=== PATIENT | male | born 1950 | race Caucasian/White ===

== ENCOUNTER 2016-06-17 17:58 | Inpatient (IN) | payer MEDICAID, OTHER ==
[~2016-06-17] VITALS: Ht 165.1 cm; Wt 69.9 kg
[2016-06-17] VITALS (11 sets, daily range): BP systolic 104–118; BP diastolic 18–71; PULSE 87–126; RESP 18–46; TEMP 96.8–98.1; O2SAT 96–99
[~2016-06-17 17:58] MED LIST: ALBMDI INH; CEPH-568 PO; LACT1CAP57 PO; MOME13HF2 INH
--- NOTE | 2016-06-17 17:58 | NUR ---
Pt arrived to ED at 1756 via SQ 61 in severe Resp distress RR 46 SaO2 97% on c-pap. EMS states hx asthma and per EMS he frequently utilized EMS services. Epi and Albuterol given in field.
--- NOTE | 2016-06-17 17:58 | NUR ---
See Code sheet starting at 3005 Dr. Finley at bedside. Pt placed in room 1
--- NOTE | 2016-06-17 18:00 | NUR ---
Megan freire in EDM - 06/17/[address] at [address] LIU AT BEDSIDE EXAMINING THE PT.
--- NOTE | 2016-06-17 18:00 | NUR ---
# 20 gauge angiocath placed to LH. Use of asceptic technique. Opsite placed over site. Blood return noted. Flushed with 10 cc of normal saline. No evidence of infiltration noted. Patient tolerated well.
--- NOTE | 2016-06-17 18:01 | NUR ---
Intubation completed 7.5 ET at 25cm lip line
--- NOTE | 2016-06-17 18:07 | NUR ---
Propofol 15mcg/kg/min verified by Lou RN
--- NOTE | 2016-06-17 18:07 | NUR ---
pt arrived with 18G LAC placed in field infiltrated during intubation, additional IV placed in RH 20G, LW 20G, RAC 20G placed with asceptic technique. Opsite placed over site. Blood return noted. Blood for lab drawn from site. Flushed with 10 cc of normal saline. No evidence of infiltration noted.
[2016-06-17] MEDS ORDERED: PROPOFOL DRIP 100 ML IV ONE (18:09)
--- NOTE | 2016-06-17 18:09 | NUR ---
Propofol increased to 20mg/kg/min verified by Rosanna pt moving all extremities and biting tube Addendum: 06/17/16 at 2053 by NAOMI Propofol increased to 20mcg/kg/min verified by Rosanna pt moving all extremities and biting tube
--- NOTE | 2016-06-17 18:10 | NUR ---
solumedrol 250mg IVP
[2016-06-17] MEDS ORDERED: ALBUTEROL SULFATE 0.083% 2.5 MG/3 ML VIAL.NEB INH ONE ×2 (18:12→18:15)
[2016-06-17] MEDS ORDERED: methylPREDNISolone SOD SUCC/PF 62.5 MG/ML VIAL ONE (18:13)
[2016-06-17] MEDS ORDERED: IPRATROPIUM BROM 0.5 MG/2.5 ML VIAL.NEB (ATROVENT) INH ONE (18:15)
[2016-06-17] MEDS ORDERED: methylPREDNISolone SOD SUCC/PF 62.5 MG/ML VIAL IVP ONE ×2 (18:15→19:30)
[2016-06-17] MEDS ORDERED: LEVOFLOXACIN 500 MG/D5W 100 ML IV ONE (18:15)
[2016-06-17] MEDS ORDERED: ALBUTEROL SULFATE 0.083% 2.5 MG/3 ML VIAL.NEB INH PRN (18:15)
--- NOTE | 2016-06-17 18:15 | NUR ---
Physician order given to place 4-point soft type restraints to bilat wrist and ankle to prevent patient from pulling out ET tube. Resraints placed with quick-release ties to bed frame. Will monitor patient frequently.
--- NOTE | 2016-06-17 18:17 | NUR ---
Propofol increased to 35mg/kg/min verified by Dayana pt moving all extremities and biting tube Addendum: 06/17/16 at 2057 by NAOMI Propofol increased to 35mcg/kg/min verified by Dayana pt moving all extremities and biting tube
--- NOTE | 2016-06-17 18:17 | NUR ---
Megan freire in ED - 06/17/16 at 1901 by VANNESSA Propofol increased to 20mg/kg/min verified by Dayana pt moving all extremities and biting tube
--- NOTE | 2016-06-17 18:22 | NUR ---
Propofol increased to 40mg/kg/min verified by Dayana pt moving all extremities and biting tube Addendum: 06/17/16 at 2058 by NAOMI Propofol increased to 40mcg/kg/min verified by Dayana pt moving all extremities and biting tube
--- NOTE | 2016-06-17 18:27 | NUR ---
Propofol increased to 45mg/kg/min verified by Dayana pt moving all extremities and biting tube. IV patent no swelling noted Addendum: 06/17/16 at 2101 by NAOMI Propofol increased to 45mcg/kg/min verified by Dayana pt moving all extremities and biting tube. IV patent no swelling noted
--- NOTE | 2016-06-17 18:30 | NUR ---
INTUBATION PERFORMED BY ER MD LIU AT 1801 VIA ET TUBE SIZE 7.5 SECURED WITH NICOLLE AT 25CM LIP LINE. CONNECTED TO VENTILATOR AT 1810 VIA SETTINGS OF AC 14 VT500 100%FIO2. SPUTUM SAMPLE COLLECTED AND SENT TO LAB AT 1820. PT CURRENTLY ON N TX. WAITING FOR NEW ORDERS.
[2016-06-17 18:32] LABS: BASOPHILS # (AUTO) 0.1 K/uL (0.0-0.2); BASOPHILS % (AUTO) 0.8 % (0.0-2.0); EOSINOPHILS # (AUTO) 0.5 K/uL (0.0-0.4); EOSINOPHILS % (AUTO) 3.3 % (0.0-4.0); HEMATOCRIT 41.6 % (36-54); HEMOGLOBIN 14.2 g/dL (14.0-18.0); LYMPHOCYTES # (AUTO) 2.1 K/uL (1.0-5.5); LYMPHOCYTES % (AUTO) 14.1 % (20.5-51.5); MEAN CORPUSCULAR HEMOGLOBIN 30 pg (27-31); MEAN CORPUSCULAR HGB CONC 34 % (32-36); MEAN CORPUSCULAR VOLUME 89 fL (79.0-98.0); MONOCYTES # (AUTO) 1.1 K/uL (0.0-1.0); NEUTROPHILS # (AUTO) 11.3 K/uL (1.8-7.7); NEUTROPHILS % (AUTO) 74.8 % (40.0-70.0); PLATELET COUNT (AUTO) 249 K/uL (130-430); RED BLOOD CELL COUNT(AUTO) 4.68 MIL/uL (4.2-6.2); RED CELL DISTRIBUTION WIDTH 12.1 % (9.0-15.0); WHITE BLOOD COUNT (AUTO) 15.1 K/uL (4.8-10.8)
--- NOTE | 2016-06-17 18:33 | NUR ---
Propofol increased to 50mg/kg/min verified by Dayana pt moving all extremities and biting tube no s/s of IV infiltrate Addendum: 06/17/16 at 2102 by NAOMI Propofol increased to 50mcg/kg/min verified by Dayana pt moving all extremities and biting tube no s/s of IV infiltrate
[2016-06-17 18:39] LABS: CALCIUM 8.5 mg/dL (8.4-11.0); CREATININE 1.45 mg/dL (0.55-1.30); INR 0.9 (0.80-1.20); POTASSIUM 4.3 mmol/L (3.5-5.1); PROTHROMBIN TIME 10.2 SECS (9.5-12.5)
--- NOTE | 2016-06-17 18:40 | NUR ---
Prior chart reviewed by Lou obtained phone number for poss family [phone] no answer
--- NOTE | 2016-06-17 18:40 | NUR ---
Call for a bed and ICU will call back
--- NOTE | 2016-06-17 18:43 | NUR ---
Pt biting tube, moving all extremities Propofol at 50mcg/kg/min. V.O.R.B Dr. Finley for Ativan 1mg IVP.
[2016-06-17] MEDS ORDERED: LORazepam 2 MG/ML VIAL (FOR ER USE) IVP ONE (18:45)
[2016-06-17] MEDS ORDERED: KCL 20 mEq in D5/0.45NS 1000mL 1,000 ML IV SCH (18:45)
--- NOTE | 2016-06-17 18:45 | NUR ---
# 16 FR Mclaughlin catheter with use of sterile technique. Immediate return of 40 cc CLEAR AND YELLOW urine noted. Bedside drainage bag placed below level of bladder. Urine sample collected and sent to lab. Pt tolerated procedure WELL. Patient unable to toilet self due to intubation.
[2016-06-17 18:47] LABS: BILIRUBIN,URINE NEGATIVE (NEGATIVE); BLOOD, URINE 2+ (NEGATIVE); CLARITY/URINE HAZY (CLEAR); COLOR,URINE YELLOW (YELLOW); GLUCOSE,URINE NEGATIVE (NEGATIVE); KETONES,URINE TRACE (NEGATIVE); LEUKOCYTE ESTERASE ,URINE NEGATIVE (NEGATIVE); NITRITE, URINE NEGATIVE (NEGATIVE); PH,URINE 5.5 (5.0-8.0); PROTEIN URINE 2+ (NEGATIVE); UROBILINOGEN,URINE 0.2 (0.2-1.0)
[2016-06-17 18:49] LABS: ALBUMIN 4.2 g/dL (3.4-4.8); TOTAL BILIRUBIN 0.4 mg/dL (0.0-1.0); TOTAL PROTEIN, SERUM 7.7 g/dL (6.4-8.3)
[2016-06-17] MEDS ORDERED: LORazepam 2 MG/ML VIAL (FOR ER USE) ONE (18:50)
[2016-06-17 18:58] LABS: BACTERIA,URINE FEW /HPF (None Seen); FINE GRANULAR CASTS,URINE 0-10 /LPF (None Seen); RBC,URINE 0-3 /HPF (0-3); WBC,URINE 0-3 /HPF (0-3)
[2016-06-17 18:59] LABS: MUCUS,URINE None Seen /LPF (None Seen)
--- NOTE | 2016-06-17 18:59 | NUR ---
TWO FAILED ATTEMPTS MADE FOR NG TUBE INSERTION, PT. AGITATED AND FIGHTFUL AT THIS TIME
[2016-06-17 19:04] LABS: BLOOD GAS PH 7.256 (7.350-7.450)
[2016-06-17 19:05] LABS: ABG TOTAL HEMOGLOBIN 14.5 G/dL (12.0-18.0); BLOOD GAS BASE EXCESS -2.3 mmol/L (-3.0-3.0); BLOOD GAS COHb% 0.4 % (0.5-1.5); BLOOD O2Hb% 98.3 % (94.0-97.0)
[2016-06-17 19:06] LABS: BLOOD GAS HHB 0.6 % (0.0-6.0)
[2016-06-17] MEDS: LevALBUTEROL HCL 1.25 MG/0.5 ML *CONC.* VIAL.NEB (XOPENEX CONC.) INH SCH (19:30)
[2016-06-17] MEDS ORDERED: LevALBUTEROL HCL 1.25 MG/0.5 ML *CONC.* VIAL.NEB (XOPENEX CONC.) INH PRN (19:30)
--- NOTE | 2016-06-17 19:30 | NUR ---
Patient will be admitted to care of dr. singh. Admitted to ICU unit. Will go to room 6. Belongings list completed. Summary report printed. Report given to FER PEREZ.
--- NOTE | 2016-06-17 19:30 | NUR ---
ADMISSION Pt admitted from ER via gurney, accompanied by ER ACLS staff. Pt orally intubated and bagged during transport. Vent set up in room, pt tolerating ER vent settings. Pt sedated and restrained. Sedation and restraints started in ER. Diprivan infusing @ 50mcg/Kg/min. 3 IV sites started by ER staff. Left hand 20ga, RAC 20ga, R wrist 20ga, all patent no redness or swelling noted @ sites. Diprivan infusing into RAC. Pérez also placed by ER staff, cloudy yellow urine noted in pérez bag. Dr Morales here evaluating Pt.
--- NOTE | 2016-06-17 19:35 | NUR ---
RESTRAINTS Pt received from ER with bilateral wrist restraints in use. Pt restless, and to prevent self extubation.
[2016-06-17] MEDS ORDERED: ACETAMINOPHEN 650 MG/20.3 ML UDC NG PRN (19:45)
[2016-06-17] MEDS ORDERED: DEXTROSE 50%-WATER 50 ML DISP.SYRIN IVP PRN ×2 (19:45)
[2016-06-17] MEDS ORDERED: LORazepam 2 MG/ML VIAL IVP PRN (19:45)
[2016-06-17] MEDS ORDERED: PANTOPRAZOLE SODIUM 40 MG/VIAL (PROTONIX) IVP ONE (19:45)
[2016-06-17] MEDS ORDERED: PROPOFOL DRIP 100 ML IV PRN (19:45)
[2016-06-17] MEDS ORDERED: GLUCOSE 15 GM GEL (in 37.5 GM TUBE) PO PRN ×2 (19:45)
--- NOTE | 2016-06-17 19:45 | NUR ---
SEPTIC Dr Ruth was notified regarding elevated Lactic Acid of 4.7, and WBC of 15.1, he stated the Pt is not septic.
--- NOTE | 2016-06-17 19:55 | NUR ---
DR ALDO Schmidt returned call, Dr Schmidt was given the latest ABG results, and history. Orders received. 1. CXR in AM 2. ABG @ 0900 3. Ativan 1mg IVP Q2Hr PRN agitation. 4. Decrease FIO2 to 40%.
[2016-06-17] MEDS ORDERED: cefTRIAXone 1 GM VIAL ONE (20:47)
--- NOTE | 2016-06-17 21:00 | NUR ---
Note undone in EDM - 06/17/16 at 2100 by LAURENEDTS Propofol increased to 45mcg/kg/min verified by Dayana pt moving all extremities and biting tube. IV patent no swelling noted
[2016-06-17] MEDS: cefTRIAXone 1 GM in D5W 50 ML IV SCH (21:02)
[2016-06-17 21:11] LABS: ABG TOTAL HEMOGLOBIN 14.1 G/dL (12.0-18.0); BLOOD GAS BASE EXCESS -1.2 mmol/L (-3.0-3.0); BLOOD GAS COHb% 0.4 % (0.5-1.5); BLOOD GAS HHB 1.1 % (0.0-6.0); BLOOD GAS PH 7.362 (7.350-7.450); BLOOD O2Hb% 97.9 % (94.0-97.0)
[2016-06-17] MEDS: PROPOFOL DRIP 100 ML IV PRN (21:18)
--- NOTE | 2016-06-17 21:30 | NUR ---
NGT Oral gastric tube inserted, after one attempt 16fr used, placement checked by irrigating tube with air and auscultating placement. Pt tolerated procedure well.
--- NOTE | 2016-06-17 21:35 | NUR ---
CONTINUING CARE OF THIS PATIENT FROM [employer] NURSE -Pt is resting in bed. No s/s any pain,sob,or any acute distress noted. Driprivan drip is at 50mcg/kg/min. IVF D5 1/2NS + 20 KCL 2 75ML/HR. Keep HOB greater than 30 degree entire time. Pt is still on same [facility] vent setting, US=033, AC=18,FIO2=40%, PEEP=0; All safety measures in place. Mclaughlin cath in place w/ gravity drains yellow urine output. Call light w/in reach. Continue to monitor pt.
[2016-06-17] MEDS: LACTOBACILLUS RHAMNOSUS GG 1 CAP CAPSULE NG SCH (22:03)
--- NOTE | 2016-06-17 22:50 | NUR ---
NOTES; -Pt is resting in bed. No s/s any pain,sob,or any acute distress noted. Driprivan drip is at 45mcg/kg/min. Keep HOB greater than 30 degree entire time. Pt is still on same [facility] vent setting. All safety measures in place. Mclaughlin cath in place w/ gravity drains yellow urine output. Call light w/in reach. Continue to monitor pt.
[2016-06-17] MEDS ORDERED: FLU VACC QS 2016-17(36MOS+)/PF 0.5 ML/SYR SYRINGE I.M. PRN (23:00)
[2016-06-17] MEDS: methylPREDNISolone SOD SUCC/PF 62.5 MG/ML VIAL IVP SCH (23:35)
--- NOTE | 2016-06-17 23:35 | NUR ---
NOTES;BLOOD SUGAR IS 225, GAVE 4 UNITS SUBCUT REG INSULIN -Pt is resting in bed. No s/s any pain,sob,or any acute distress noted. Driprivan drip is at 45mcg/kg/min. GREGORIO 4. Keep HOB greater than 30 degree entire time. Pt is still on same [facility] vent setting. All safety measures in place. Mclaughlin cath in place w/ gravity drains yellow urine output. Call light w/in reach. Continue to monitor pt.
[2016-06-17] MEDS: INSULIN REGULAR, HUMAN 100 UNITS/ML, 10 ML VIAL (novoLIN R) SUBCUT PRN (23:37)
[2016-06-18] VITALS (36 sets, daily range): BP systolic 96–128; BP diastolic 56–77; PULSE 72–92; RESP 18–20; TEMP 96.6–98.8; O2SAT 95–99
--- NOTE | 2016-06-18 00:13 | NUR ---
TITRATING DRIPRIVAN DRIP - Driprivan drip increased at 50mcg/kg/min. GREGORIO 1. Keep HOB greater than 30 degree entire time. Pt is still on same [facility] vent setting. All safety measures in place. Mclaughlin cath in place w/ gravity drains yellow urine output. Call light w/in reach. Continue to monitor pt.
[2016-06-18] MEDS: LevALBUTEROL HCL 1.25 MG/0.5 ML *CONC.* VIAL.NEB (XOPENEX CONC.) INH SCH ×4 (00:59→19:50)
--- NOTE | 2016-06-18 02:00 | NUR ---
ROUNDS; - Pt is resting. No s/s any pain,sob,or any acute distress noted. Driprivan drip is at 50mcg/kg/min. GERGORIO 4. Keep HOB greater than 30 degree entire time. Pt is still on same [facility] vent setting. Demetrius soft wrists restraints in place. No s/s any injury noted. Good circulation noted. All safety measures in place. Mclaughlin cath in place w/ gravity drains yellow urine output. Call light w/in reach. Continue to monitor pt.
[2016-06-18] MEDS: PROPOFOL DRIP 100 ML IV PRN ×5 (02:28→21:56)
--- NOTE | 2016-06-18 04:00 | NUR ---
ROUNDS; - Pt is resting. Vital signs 96.6, 81, 109/65,18,s7zmo=65%. Gave oral care,suctioned pt, and turned and repositioned pt. No s/s any pain,sob,or any acute distress noted. Driprivan drip is at 50mcg/kg/min. GREGORIO 4. Keep HOB greater than 30 degree entire time. Pt is still on same [facility] vent setting. Demetrius soft wrists restraints in place. No s/s any injury noted. Good circulation noted. All safety measures in place. Mclaughlin cath in place w/ gravity drains yellow urine output. Call light w/in reach. Continue to monitor pt.
--- NOTE | 2016-06-18 05:02 | NUR ---
AM BLOOD DRAW BY LEX-REHAB CARE ASSISTANT -Pt was moving and kicking.
--- NOTE | 2016-06-18 05:05 | NUR ---
[facility] BATHE PROVIDED -CHANGED ALL LINEN,GOWN, PILLOW CASES, ORAL CARE AND PERINEAL CARE, PT TOLERATED WELL. NOW, PT IS CLEANED AND DRY.
[2016-06-18] MEDS: methylPREDNISolone SOD SUCC/PF 62.5 MG/ML VIAL IVP SCH ×3 (05:28→21:51)
--- NOTE | 2016-06-18 05:28 | NUR ---
ROUNDS;BLOOD SUGAR IS 239,GAVE 4 UNITS REG INSULIN SUBCUT - No s/s any pain,sob,or any acute distress noted. Driprivan drip is at 50mcg/kg/min. GREGORIO 4. Keep HOB greater than 30 degree entire time. Pt is still on same [facility] vent setting. Demetrius soft wrists restraints in place. No s/s any injury noted. Good circulation noted. All safety measures in place. Mclaughlin cath in place w/ gravity drains yellow urine output. Call light w/in reach. Continue to monitor pt.
[2016-06-18] MEDS: INSULIN REGULAR, HUMAN 100 UNITS/ML, 10 ML VIAL (novoLIN R) SUBCUT PRN ×3 (05:30→17:37)
[2016-06-18 06:37] LABS: BASOPHILS % (AUTO) 0.1 % (0.0-2.0); HEMATOCRIT 36.1 % (36-54); HEMOGLOBIN 12.3 g/dL (14.0-18.0); LYMPHOCYTES # (AUTO) 0.4 K/uL (1.0-5.5); LYMPHOCYTES % (AUTO) 3.2 % (20.5-51.5); MEAN CORPUSCULAR HEMOGLOBIN 30 pg (27-31); MEAN CORPUSCULAR HGB CONC 34 % (32-36); MEAN CORPUSCULAR VOLUME 88 fL (79.0-98.0); MONOCYTES # (AUTO) 0.1 K/uL (0.0-1.0); MONOCYTES % (AUTO) 0.6 % (1.7-9.3); NEUTROPHILS # (AUTO) 12.2 K/uL (1.8-7.7); NEUTROPHILS % (AUTO) 96.1 % (40.0-70.0); PLATELET COUNT (AUTO) 195 K/uL (130-430); RED BLOOD CELL COUNT(AUTO) 4.09 MIL/uL (4.2-6.2); WHITE BLOOD COUNT (AUTO) 12.8 K/uL (4.8-10.8)
[2016-06-18] MEDS ORDERED: ETOMIDATE 20 MG/ 10 ML VIAL (AMIDATE) IVP ONE (06:54)
--- NOTE | 2016-06-18 06:54 | NUR ---
CLOSING NOTES; -Pt is resting in bed. No s/s any pain,sob,or any acute distress noted. Driprivan drip is at 50mcg/kg/min. IVF D5 1/2NS + 20 KCL @ 75ML/HR. Keep HOB greater than 30 degree entire time. 3 IV sites of left hand, rt hand, and RAC patent, drsg cdi. Pt is still on same [facility] vent setting, JP=851, AC=18,FIO2=40%, PEEP=0; OGT clamped. All safety measures in place. Mclaughlin cath in place w/ gravity drains yellow urine output. Demetrius soft wrist restraints in place. Good circulation noted. No s/s any injury noted. Call light w/in reach. Will endorse to oncoming nurse to continue care.
[2016-06-18 07:09] LABS: CALCIUM 7.7 mg/dL (8.4-11.0); CREATININE 1.04 mg/dL (0.55-1.30); POTASSIUM 5.3 mmol/L (3.5-5.1)
--- NOTE | 2016-06-18 08:00 | NUR ---
NURSE: BLOOD SUGAR RECHECK VIA ACCU CHECK-234, LAB CALLED EARLIER AND SAID THE BLOOD GLUCOSE WAS 457.
--- NOTE | 2016-06-18 08:00 | NUR ---
AM NOTES: RECEIVED PT AT 0715 ON VENT, SEDATED WITH PROPOFOL, AC18, VT500, FIO2 40%, VIA ETT SIZE 7.5 LEVEL 24 CM AT LIP LINE, WITHDRAWS TO PAIN STIMULI, GRIMACES WITH SUCTION, PUPILS ARE BOTH REACTIVE, ON BILATERAL WRIST RESTRAINTS, ON NSR, BP STABLE, TO CONTINUE TO MONITOR CLOSELY.
[2016-06-18] MEDS: LACTOBACILLUS RHAMNOSUS GG 1 CAP CAPSULE NG SCH ×2 (08:08→20:34)
[2016-06-18] MEDS: PANTOPRAZOLE SODIUM 40 MG/VIAL (PROTONIX) IVP SCH (08:08)
[2016-06-18] MEDS: ENOXAPARIN SODIUM 40 MG/0.4 ML SYRINGE SUBCUT SCH (08:08)
[2016-06-18 08:11] LABS: ABG TOTAL HEMOGLOBIN 13.8 G/dL (12.0-18.0); BLOOD GAS BASE EXCESS -0.4 mmol/L (-3.0-3.0); BLOOD GAS COHb% 0.4 % (0.5-1.5); BLOOD GAS PH 7.413 (7.350-7.450)
--- NOTE | 2016-06-18 09:30 | NUR ---
NURSE; CALLED DR COLORADO TO TELL HIM THAT SERUM K WAS-5.3 AND THAT PT IS GETTING K IN THE IV FLUID, HE SAID TO CHANGE THE IV BAG TO PLAIN D5 1/2 NS AT 75 ML/HR.
[2016-06-18] MEDS: D5/0.45 NS 1,000 ML IV SCH ×2 (10:37→22:07)
--- NOTE | 2016-06-18 12:00 | NUR ---
NURSE: TURNED TO SIDES, ORAL CARE, SUCTIONED. REDUCED PROPOFOL TO 40 MCG, WI;; CONTINUE TO MONITOR.
--- NOTE | 2016-06-18 16:00 | NUR ---
NURSE: DR CARLSON CAME, SAW THE PT, SHOWED HIM THE CXR RESULT IN AM, HE ORDERED FOR A CT CHEST, PT IS BACK TO PROPOFOL AT 50 MCQS, PT WOKE UP AND BECAME RESTLESS.
--- NOTE | 2016-06-18 19:25 | NUR ---
PAGED Paged Dr. Morales. Awaiting call back.
[2016-06-18] MEDS: cefTRIAXone 1 GM in D5W 50 ML IV SCH (19:30)
--- NOTE | 2016-06-18 19:30 | NUR ---
PM ASSESSMENT Received pt from day shift RN. Pt sedated on propofol at 45 mcg/kg/min and is a 4 on Elliott scale. SR on child monitor. ETT-to-vent, currently tolerating vent settings with O2 SAT of 98%. OGT present and is clamped. Confirmed correct placement via auscultation of air. IV sites include: 20 gauge to right AC, 20 gauge to right hand (SL), and 20 gauge to left hand. No redness or swelling observed at sites. Dressings are clean, dry, and intact. Mclaughlin catheter present, draining yellow urine. Soft-bilateral wrist restraints are in place. No signs of injury noted due to restraints. Safety check performed. Bed locked and in low position. Call light within reach. Heels are floated off of bed with pillows. Pt to be turned [id number] Q2HR. Will continue to monitor.
--- NOTE | 2016-06-18 19:45 | NUR ---
PAGED Paged Dr. Morales a second time. Awaiting call back.
--- NOTE | 2016-06-18 19:57 | NUR ---
RETURNED PAGE Dr. Morales returned page. Spoke with over phone. Informed that restraint renewal order is needed for pt. Nurse notified by that he is coming to see pt.
[2016-06-18] MEDS: LORazepam 2 MG/ML VIAL IVP PRN (20:35)
--- NOTE | 2016-06-18 22:10 | NUR ---
MD ROUNDS Dr. Morales at bedside. Updated on pt status. Will renew order for restraints. Inquired whether or not MD wanted to initiate TF for pt, and MD stated, "Maybe tomorrow." Will carry out any new orders.
[2016-06-19] VITALS (36 sets, daily range): BP systolic 100–158; BP diastolic 52–97; PULSE 58–81; RESP 18–30; TEMP 96–98.4; O2SAT 96–100; Ht 165.1 cm; Wt 69.9 kg
--- NOTE | 2016-06-19 | NUR ---
PROPOFOL Propofol decreased to 40 mcg/kg/min. Will continue to monitor.
[2016-06-19] MEDS: INSULIN REGULAR, HUMAN 100 UNITS/ML, 10 ML VIAL (novoLIN R) SUBCUT PRN ×3 (00:09→12:48)
[2016-06-19] MEDS: LevALBUTEROL HCL 1.25 MG/0.5 ML *CONC.* VIAL.NEB (XOPENEX CONC.) INH SCH ×4 (00:51→19:47)
[2016-06-19] MEDS: PROPOFOL DRIP 100 ML IV PRN ×4 (01:37→14:38)
--- NOTE | 2016-06-19 03:00 | NUR ---
HYGIENE CHG bath given. Skin, sheldon, and pérez care provided at this time. Total linen change. Pt tolerated well.
--- NOTE | 2016-06-19 05:00 | NUR ---
PROPOFOL Propofol decreased to 35 mcg/kg/min. Will continue to monitor.
[2016-06-19] MEDS: methylPREDNISolone SOD SUCC/PF 62.5 MG/ML VIAL IVP SCH ×3 (05:10→20:59)
[2016-06-19] MEDS: LORazepam 2 MG/ML VIAL IVP PRN ×2 (05:25→14:40)
[2016-06-19 06:39] LABS: CALCIUM 8.3 mg/dL (8.4-11.0); CREATININE 0.95 mg/dL (0.55-1.30); PHOSPHORUS 2.5 mg/dL (2.7-4.5); POTASSIUM 4.1 mmol/L (3.5-5.1)
[2016-06-19 06:59] LABS: HEMATOCRIT 37.3 % (36-54); HEMOGLOBIN 12.7 g/dL (14.0-18.0); MEAN CORPUSCULAR HEMOGLOBIN 30 pg (27-31); MEAN CORPUSCULAR HGB CONC 34 % (32-36); MEAN CORPUSCULAR VOLUME 89 fL (79.0-98.0); PLATELET COUNT (AUTO) 197 K/uL (130-430); RED CELL DISTRIBUTION WIDTH 12.4 % (9.0-15.0)
--- NOTE | 2016-06-19 07:10 | NUR ---
CLOSING NOTE / ENDORSEMENT Pt continues to tolerate current vent settings with O2 SAT of 98%. OGT in place and clamped. Propofol infusing at 35 mcg/kg/min with pt score of 4 on [place] scale. IVF infusing at 75 mL/hr. 20 gauge IV to right AC and 20 gauge IV to left hand. No redness/swelling at either site. Soft-bilateral wrist restraints in place. No signs of injury due to restraints. Mclaughlin remains in place, draining yellow urine. All medications administered per orders, all needs met. Report given and all care endorsed to day shift RN.
[2016-06-19 07:15] LABS: WHITE BLOOD COUNT (AUTO) 17.9 K/uL (4.8-10.8)
--- NOTE | 2016-06-19 08:00 | NUR ---
Received pt sedated on propofol. Pt responds to suctioning and tactile stimulation. SR on tele. On vent via trach on AC setting and tolerating well. Suctioned pt, clear thin secretions noted. Propofol via right AC PIV, line is patent and intact. IVF via left hand PIV, patent and intact. OGT in place and clamped at this time. F/C, securement device in place. Bilateral wrist restraints in place. Head of bed elevated. Repositioning pt q2h. Will continue to monitor.
[2016-06-19 08:18] LABS: ATYPICAL LYMPHOCYTES % 0 % (0-0); BAND % (MANUAL) 2 % (0-6); BASOPHILS % (MANUAL) 0 % (0-2); EOSINOPHILS % (MANUAL) 0 % (0-7); LYMPHOCYTES % (MANUAL) 2 % (20-46); MONOCYTES % (MANUAL) 4 % (0-11)
[2016-06-19] MEDS: LACTOBACILLUS RHAMNOSUS GG 1 CAP CAPSULE NG SCH ×2 (08:40→20:59)
[2016-06-19] MEDS: PANTOPRAZOLE SODIUM 40 MG/VIAL (PROTONIX) IVP SCH (08:41)
[2016-06-19] MEDS: ENOXAPARIN SODIUM 40 MG/0.4 ML SYRINGE SUBCUT SCH (08:42)
--- NOTE | 2016-06-19 08:50 | NUR ---
Pt to CT with RT and xray techs at side. Will continue to monitor.
--- NOTE | 2016-06-19 09:10 | NUR ---
Back from CT. Pt tolerated well. Will continue to monitor.
--- NOTE | 2016-06-19 09:19 | NUR ---
Nutrition Update [place] Scale 12 noted. Pt admitted for acute respiratory failure, COPD. Diet: NPO BMI: 25.7 kg/m2 RD to follow per nutrition care standards.
[2016-06-19 09:42] LABS: ABG TOTAL HEMOGLOBIN 13.5 G/dL (12.0-18.0); BLOOD GAS BASE EXCESS 2.2 mmol/L (-3.0-3.0); BLOOD GAS COHb% 0.1 % (0.5-1.5); BLOOD GAS HHB 3.4 % (0.0-6.0); BLOOD GAS PH 7.461 (7.350-7.450); BLOOD O2Hb% 95.9 % (94.0-97.0)
[2016-06-19] MEDS: D5/0.45 NS 1,000 ML IV SCH ×2 (10:27→12:44)
--- NOTE | 2016-06-19 12:00 | NUR ---
Pt repositioned. Oral care completed. Pt HR maria e when propofol increased. Propofol currently at 30. Head of bed elevated. Will continue to monitor.
--- NOTE | 2016-06-19 16:00 | NUR ---
Pt remains on bilateral soft wrist restraints due to pt pulling at ETT and PIV. Propofol remains on at this time. SB to SR on tele. Afebrile. Oral care completed. Head of bed elevated. Will continue to monitor.
--- NOTE | 2016-06-19 19:35 | NUR ---
DR. CARLSON ORDERED TO CHANGED MECH VENT SETTING -DR. CARLSON IS AT BEDSIDE AND ORDERED TO CHANGED MECH VENT SETTING, SIMV 10, AND PS 10. WILL NOTIFY RESP THERAPIST-LEROY REGARDING NEW ORDER.
--- NOTE | 2016-06-19 19:40 | NUR ---
PM ASSESSMENT -Pt is resting in bed. No s/s any pain,sob,or any acute distress noted. Driprivan drip is at 35mcg/kg/min. IVF D5 1/2NS @ 75ML/HR. Keep HOB greater than 30 degree entire time. Lung sounds clear throughout all lobes. G-Tube feeding with Nutren Pumonary @ 20ml/hr, will increase q 12 hrs every 5ml/hr due at 0600 tomorrow. Abdomen soft but distended, BS present. Pt is still on same [facility] vent setting, IM=506, AC=18,FIO2=40%, PEEP=0; All safety measures in place. Demetrius soft wrist restraint in place. Good circulation noted, no s/s any injury noted. Mclaughlin cath in place w/ gravity drains yellow urine output. Call light w/in reach. Continue to monitor pt.
--- NOTE | 2016-06-19 20:08 | NUR ---
RESP THERAPIST LEROY-CHANGED [facility] VENT SETTING AT SIMV 10, AND PS 10 PER MD ORDERED.
[2016-06-19] MEDS: cefTRIAXone 1 GM in D5W 50 ML IV SCH (20:59)
--- NOTE | 2016-06-19 21:50 | NUR ---
NOTES; TITRATED DRIPRIVAN DRIP @ 30MCG/KG/MIN -Pt is resting in bed. No s/s any pain,sob,or any acute distress noted. Driprivan drip is at 30mcg/kg/min. IVF D5 1/2NS @ 75ML/HR. Keep HOB greater than 30 degree entire time. G-Tube feeding with Nutren Pumonary @ 20ml/hr. Pt is still on same [facility] vent setting, PW=552, AC=18,FIO2=40%, PEEP=0; All safety measures in place. Demetrius soft wrist restraint in place. Good circulation noted, no s/s any injury noted. Mclaughlin cath in place w/ gravity drains yellow urine output. Call light w/in reach. Continue to monitor Addendum: 06/20/16 at 0631 by Quinton Espinosa RN [facility] VENT SETTING; FIO2=40%, PEEP=0, BO=235, SIMV 10, PS=10.
--- NOTE | 2016-06-19 23:35 | NUR ---
NOTES; TITRATED DRIPRIVAN DRIP @ 25MCG/KG/MIN -Pt is resting in bed. No s/s any pain,sob,or any acute distress noted. Driprivan drip is at 25mcg/kg/min. IVF D5 1/2NS @ 75ML/HR. Keep HOB greater than 30 degree entire time. G-Tube feeding with Nutren Pumonary @ 20ml/hr. Pt is still on same [facility] vent setting, LO=906, AC=18,FIO2=40%, PEEP=0; All safety measures in place. Demetrius soft wrist restraint in place. Good circulation noted, no s/s any injury noted. Mclaughlin cath in place w/ gravity drains yellow urine output. Call light w/in reach. Continue to monitor Addendum: 06/20/16 at 0631 by Quinton Espinosa RN [facility] VENT SETTING; FIO2=40%, PEEP=0, WV=056, SIMV 10, PS=10.
[2016-06-20] VITALS (36 sets, daily range): BP systolic 103–184; BP diastolic 49–101; PULSE 64–89; RESP 20–46; TEMP 96.3–98.4; O2SAT 96–100
[2016-06-20] MEDS: LORazepam 2 MG/ML VIAL IVP PRN ×6 (00:17→21:24)
--- NOTE | 2016-06-20 00:17 | NUR ---
AGITATION/GREGORIO SCORE=1 -GAVE ATIVAN 1MG IVP. SUCTIONED PT AND ORAL CARE GIVEN.
[2016-06-20] MEDS: PROPOFOL DRIP 100 ML IV PRN ×3 (00:19→14:29)
[2016-06-20] MEDS: D5/0.45 NS 1,000 ML IV SCH ×2 (00:34→14:34)
[2016-06-20] MEDS: INSULIN REGULAR, HUMAN 100 UNITS/ML, 10 ML VIAL (novoLIN R) SUBCUT PRN ×5 (00:41→23:32)
--- NOTE | 2016-06-20 01:21 | NUR ---
CHG BATHE PROVIDED; INCONTINENT OF LARGE SOFT DARK GREEN BOWEL MOVT -Gave CHG bathe, oral care, and perineal care provided. Now, pt is cleaned and dry. Driprivan drip is at 25mcg/kg/min. IVF D5 1/2NS @ 75ML/HR. Keep HOB greater than 30 degree entire time. G-Tube feeding with Nutren Pumonary @ 20ml/hr. [facility], BO=217, AC=18,FIO2=40%, PEEP=0; All safety measures in place. Demetrius soft wrist restraint in place. Good circulation noted, no s/s any injury noted. Mclaughlin cath in place w/ gravity drains yellow urine output. Call light w/in reach. Continue to monitor Addendum: 06/20/16 at 0631 by Quinton Espniosa RN [facility] VENT SETTING; FIO2=40%, PEEP=0, UM=986, SIMV 10, PS=10.
[2016-06-20] MEDS: LevALBUTEROL HCL 1.25 MG/0.5 ML *CONC.* VIAL.NEB (XOPENEX CONC.) INH SCH ×3 (02:10→19:34)
--- NOTE | 2016-06-20 02:46 | NUR ---
NOTES; -Pt is resting,no s/s pain,sob,or any acute distress noted. Driprivan drip is at 25mcg/kg/min. GREGORIO SCORE=4; IVF D5 1/2NS @ 75ML/HR. Keep HOB greater than 30 degree entire time. G-Tube feeding with Nutren Pumonary @ 20ml/hr. Pt is still on same [facility] vent setting, NK=729, AC=18,FIO2=40%, PEEP=0; All safety measures in place. Demetrius soft wrist restraint in place. Good circulation noted, no s/s any injury noted. Mclaughlin cath in place w/ gravity drains yellow urine output. Call light w/in reach. Continue to monitor Addendum: 06/20/16 at 0632 by Quinton Espinosa RN [facility] VENT SETTING; FIO2=40%, PEEP=0, LB=182, SIMV 10, PS=10.
--- NOTE | 2016-06-20 03:50 | NUR ---
AGITATION/GREGORIO SCORE=1 -GAVE ATIVAN 1MG IVP. SUCTIONED PT AND ORAL CARE GIVEN.
[2016-06-20] MEDS: methylPREDNISolone SOD SUCC/PF 62.5 MG/ML VIAL IVP SCH ×3 (05:37→21:23)
--- NOTE | 2016-06-20 06:04 | NUR ---
AGITATION/GREGORIO SCALE=1 -GAVE ATIVAN 1MG IVP. SUCTIONED PT AND ORAL CARE GIVEN.
--- NOTE | 2016-06-20 06:28 | NUR ---
INCONTINENT OF LARGE SOFT DARK GREEN BOWEL MOVT AND INCREASED G-TUBE FEEDING @ 25ML/HR NOW. -Provided perineal care . Now, pt is cleaned and dry. Driprivan drip is at 25mcg/kg/min. IVF D5 1/2NS @ 75ML/HR. Keep HOB greater than 30 degree entire time. G-Tube feeding with Nutren Pumonary @ 25ml/hr. Pt is still on same [facility] vent setting, TV=384, AC=18,FIO2=40%, PEEP=0; All safety measures in place. Demetrius soft wrist restraint in place. Good circulation noted, no s/s any injury noted. Mclaughlin cath in place w/ gravity drains dark shahnaz urine output. Call light w/in reach. Continue to monitor Addendum: 06/20/16 at 0632 by Quinton Espinosa RN [facility] VENT SETTING; FIO2=40%, PEEP=0, QP=821, SIMV 10, PS=10.
--- NOTE | 2016-06-20 06:48 | NUR ---
CLOSING NOTES; -Pt is resting. No s/s any pain,sob,or any acute distress noted. Driprivan drip is at 25mcg/kg/min. IVF D5 1/2NS @ 75ML/HR. Keep HOB greater than 30 degree entire time. G-Tube feeding with Nutren Pumonary @ 25ml/hr. Pt is still on same [facility] vent setting, YA=603, SIMV 10, PS=10, FIO2=40%, PEEP=0; All safety measures in place. Demetrius soft wrist restraint in place. Good circulation noted, no s/s any injury noted. Mclaughlin cath in place w/ gravity drains dark shahnaz urine output. Call light w/in reach. Will endorse to oncoming nurse to continue care.
[2016-06-20 06:52] LABS: CALCIUM 8.5 mg/dL (8.4-11.0); CREATININE 0.9 mg/dL (0.55-1.30); POTASSIUM 4.3 mmol/L (3.5-5.1)
[2016-06-20 06:53] LABS: BASOPHILS % (AUTO) 0.1 % (0.0-2.0); HEMATOCRIT 39.5 % (36-54); HEMOGLOBIN 13.4 g/dL (14.0-18.0); LYMPHOCYTES # (AUTO) 0.5 K/uL (1.0-5.5); LYMPHOCYTES % (AUTO) 2.8 % (20.5-51.5); MEAN CORPUSCULAR HEMOGLOBIN 30 pg (27-31); MEAN CORPUSCULAR HGB CONC 34 % (32-36); MEAN CORPUSCULAR VOLUME 89 fL (79.0-98.0); MONOCYTES # (AUTO) 0.5 K/uL (0.0-1.0); MONOCYTES % (AUTO) 3.2 % (1.7-9.3); NEUTROPHILS # (AUTO) 15.9 K/uL (1.8-7.7); NEUTROPHILS % (AUTO) 93.9 % (40.0-70.0); PLATELET COUNT (AUTO) 221 K/uL (130-430); RED BLOOD CELL COUNT(AUTO) 4.45 MIL/uL (4.2-6.2); RED CELL DISTRIBUTION WIDTH 12.3 % (9.0-15.0); WHITE BLOOD COUNT (AUTO) 16.9 K/uL (4.8-10.8)
--- NOTE | 2016-06-20 08:05 | NUR ---
AM ASSESSMENT. PT SEEN FACE FLUSHED, ANXIOUS, EYES RED, TEMP NORMAL, RESTRAINTS INTACT, REMOVED AND REPLACED, SKIN CLEAR UNDER THE DEVICE, ORAL HYGIENE RENDERED, TURNED AND REPOSITIONED IN BED, ATIVAN 1 MG IVP GIVEN FOR AGITATION, DIPRIVAN DRIP AT 25 MCG/KG/MIN, CONTINUE TO MONITOR.
[2016-06-20] MEDS: ENOXAPARIN SODIUM 40 MG/0.4 ML SYRINGE SUBCUT SCH (09:37)
[2016-06-20] MEDS: LACTOBACILLUS RHAMNOSUS GG 1 CAP CAPSULE NG SCH ×2 (09:37→21:23)
[2016-06-20] MEDS: PANTOPRAZOLE SODIUM 40 MG/VIAL (PROTONIX) IVP SCH (09:37)
--- NOTE | 2016-06-20 10:00 | NUR ---
HYGIENE. REPOSITIONED IN BED, INCONTINENT OF BOWEL, GOOD PERINEAL CARE PROVIDED, SPONGE BATH GIVEN WELL FOR COMFORT.
--- NOTE | 2016-06-20 12:00 | NUR ---
DIET. GASTRIC RESIDUAL ABOUT 10 ML, ABDOMEN SOFT, FEEDING RESUMED AT 25 ML PER HR, ORAL HYGIENE RENDERED, KEPT HEAD ELEVATED.
--- NOTE | 2016-06-20 16:00 | NUR ---
HYGIENE. PT HAD A BOWEL MOVEMENT, STOOL SOFT IN CONSISTENCY, PERINEAL HYGIENE RENDERED, SKIN INTACT, MADE PT DRY AND COMFORTABLE.
--- NOTE | 2016-06-20 18:00 | NUR ---
DIET. FEEDING INCREASED TO 30 ML PER HR, BLOOD SUGAR 203 MG/DL, WITH REGULAR INSULIN SLIDING SCALE COVERAGE GIVEN.
--- NOTE | 2016-06-20 20:00 | NUR ---
PM ASSESSMENT -Pt is resting in bed. No s/s any pain,sob,or any acute distress noted. Driprivan drip is at 25mcg/kg/min. GREGORIO SCALE=4, IVF D5 1/2NS @ 50ML/HR. Keep HOB greater than 30 degree entire time. Lung sounds clear throughout all lobes. G-Tube feeding with Nutren PuLmonary @ 30ml/hr. IV sites of RAC and left hand,both #20 and patent, no s/s any infiltration noted. Abdomen soft but distended, BS present. Pt is still on same [facility] vent setting, VA=031, SIMV 6,FIO2=40%, PEEP=0; All safety measures in place. Demetrius soft wrist restraint in place. Good circulation noted, no s/s any injury noted. Mclaughlin cath in place w/ gravity drains dark shahnaz urine output. Call light w/in reach. Continue to monitor pt.
--- NOTE | 2016-06-20 21:11 | NUR ---
NOTES; TITRATED DRIPRIVAN DRIP @ 20MCG/KG/MIN -Pt is resting in bed. No s/s any pain,sob,or any acute distress noted. GREGORIO SCALE=4, Driprivan drip is at 20mcg/kg/min. IVF D5 1/2NS @ 75ML/HR. Keep HOB greater than 30 degree entire time. G-Tube feeding with Nutren Pumonary @ 30ml/hr. Pt is still on same [facility] vent setting, QA=184, SIMV 6,FIO2=40%, PEEP=0; All safety measures in place. Demetrius soft wrist restraint in place. Good circulation noted, no s/s any injury noted. Mclaughlin cath in place w/ gravity drains yellow urine output. Call light w/in reach. Continue to monitor Addendum: 06/20/16 at 2146 by Quinton Espinosa RN CORRECTION--IVF RATE IS AT 50ML/HR; NOT 75ML/HR.
[2016-06-20] MEDS: cefTRIAXone 1 GM in D5W 50 ML IV SCH (21:23)
--- NOTE | 2016-06-20 21:24 | NUR ---
AGITATION/GREGORIO SCORE=1 -GAVE ATIVAN 1MG IVP. SUCTIONED PT AND ORAL CARE GIVEN.
--- NOTE | 2016-06-20 22:00 | NUR ---
NOTES; -Pt is resting in bed. No s/s any pain,sob,or any acute distress noted. Driprivan drip is at 25mcg/kg/min. IVF D5 1/2NS @ 50ML/HR. Keep HOB greater than 30 degree entire time. G-Tube feeding with Nutren PuLmonary @ 30ml/hr. IV sites of RAC and left hand,both #20 and patent, no s/s any infiltration noted. Pt is still on same [facility] vent setting, [id number], SIMV 6,FIO2=40%, PEEP=0;[id number]=48%. All safety measures in place. Demetrius soft wrist restraint in place. Good circulation noted, no s/s any injury noted. Mclaughlin cath in place w/ gravity drains dark shahnaz urine output. Call light w/in reach. Continue to monitor pt.
[2016-06-20] MEDS ORDERED: FLU VACC QS 2016-17(36MOS+)/PF 0.5 ML/SYR SYRINGE I.M. PRN (22:15)
[2016-06-21] VITALS (36 sets, daily range): BP systolic 107–189; BP diastolic 62–102; PULSE 58–98; RESP 15–39; TEMP 96–100; O2SAT 95–99
--- NOTE | 2016-06-21 | NUR ---
MIDNIGHT ASSESSMENT Pt is resting in bed. No s/s any pain,sob,or any acute distress noted. Driprivan drip is at 25mcg/kg/min. GREGORIO SCALE=4, IVF D5 1/2NS @ 50ML/HR. Keep HOB greater than 30 degree entire time. G-Tube feeding with Nutren PuLmonary @ 30ml/hr. IV sites of RAC and left hand,both #20 and patent, no s/s any infiltration noted. Pt is still on same [facility] vent setting, IY=224, SIMV 6,FIO2=40%, PEEP=0; All safety measures in place. Demetrius soft wrist restraint in place. Good circulation noted, no s/s any injury noted. Mclaughlin cath in place w/ gravity drains dark shahnaz urine output. Call light w/in reach. Continue to monitor pt. Addendum: 06/21/16 at 0147 by Quinton Espinosa RN CORRECTION-. Driprivan drip is at 20mcg/kg/min; not at @ 25mcg/kg/min.
[2016-06-21] MEDS: PROPOFOL DRIP 100 ML IV PRN ×3 (00:42→18:08)
[2016-06-21] MEDS: LevALBUTEROL HCL 1.25 MG/0.5 ML *CONC.* VIAL.NEB (XOPENEX CONC.) INH SCH ×4 (00:57→19:42)
--- NOTE | 2016-06-21 01:30 | NUR ---
NOTES; CHG BATHE, PERINEAL CARE AND ORAL CARE PROVIDED -Pt is resting in bed. No s/s any pain,sob,or any acute distress noted. Driprivan drip is at 20mcg/kg/min. GREGORIO SCALE=4, IVF D5 1/2NS @ 50ML/HR. Keep HOB greater than 30 degree entire time. G-Tube feeding with Nutren PuLmonary @ 30ml/hr. IV sites of RAC and left hand,both #20 and patent, no s/s any infiltration noted. Pt is still on same [facility] vent setting, UR=538, SIMV 6,FIO2=40%, PEEP=0; All safety measures in place. Demetrius soft wrist restraint in place. Good circulation noted, no s/s any injury noted. Mclaughlin cath in place w/ gravity drains dark shahnaz urine output. Call light w/in reach. Continue to monitor pt.
--- NOTE | 2016-06-21 02:54 | NUR ---
NOTES; -Pt is resting. No s/s any pain,sob,or any acute distress noted. All safety measures in place. Demetrius soft wrists restraint in place. Good circulation noted. No s/s any injury noted. Call light w/in reach. Continue to monitor pt.
--- NOTE | 2016-06-21 04:00 | NUR ---
TITRATING DRIPRIVAN DRIP - Driprivan drip is at 15mcg/kg/min. GREGORIO 5. No s/s any pain,sob,or any acute distress noted. Oral care provided. Suctioned pt. Keep HOB greater than 30 degree entire time. Pt is still on same [facility] vent setting. All safety measures in place. Mclaughlin cath in place w/ gravity drains yellow urine output. Call light w/in reach. Continue to monitor pt.
--- NOTE | 2016-06-21 05:00 | NUR ---
TITRATING DRIPRIVAN DRIP - Driprivan drip is at 10mcg/kg/min. GREGORIO 4. No s/s any pain,sob,or any acute distress noted. Oral care provided. Suctioned pt. Keep HOB greater than 30 degree entire time. Pt is still on same [facility] vent setting. All safety measures in place. Mclaughlin cath in place w/ gravity drains yellow urine output. Call light w/in reach. Continue to monitor pt.
[2016-06-21] MEDS: methylPREDNISolone SOD SUCC/PF 62.5 MG/ML VIAL IVP SCH ×3 (05:05→17:15)
[2016-06-21] MEDS: LORazepam 2 MG/ML VIAL IVP PRN ×4 (05:10→18:05)
--- NOTE | 2016-06-21 05:10 | NUR ---
AGITATION/GREGORIO SCALE=1 -GAVE ATIVAN 1MG IVP. SUCTIONED PT AND ORAL CARE GIVEN.
[2016-06-21] MEDS: INSULIN REGULAR, HUMAN 100 UNITS/ML, 10 ML VIAL (novoLIN R) SUBCUT PRN ×3 (05:11→17:29)
--- NOTE | 2016-06-21 05:40 | NUR ---
INCONTINENT OF LARGE SOFT DARK GREEN BOWEL MOVT -Provided perineal care and oral care. Now, pt is cleaned and dry. Suctioned pt. Continue to monitor pt.
--- NOTE | 2016-06-21 06:02 | NUR ---
[employer] OPENER VERIFIER PACKER COMPLETED CXR AT BEDSIDE.
--- NOTE | 2016-06-21 06:43 | NUR ---
CLOSING NOTES; -Pt is resting in bed. No s/s any pain,sob,or any acute distress noted. Driprivan drip is at 10mcg/kg/min. GREGORIO SCALE=3, IVF D5 1/2NS @ 50ML/HR. Keep HOB greater than 30 degree entire time. Lung sounds clear throughout all lobes. G-Tube feeding with Nutren PuLmonary @ 30ml/hr. IV sites of RAC and left hand,both #20 and patent, no s/s any infiltration noted. Pt is still on same [facility] vent setting, XM=091, SIMV 6,FIO2=40%, PEEP=0; All safety measures in place. Demetrius soft wrist restraint in place. Good circulation noted, no s/s any injury noted. Mclauhglin cath in place w/ gravity drains dark shahnaz urine output. Call light w/in reach.
--- NOTE | 2016-06-21 07:40 | NUR ---
AM Rounds: Received pt sitting semi-fowlers in bed. No acute signs of distress noted at this time. IV intact to LUE infusing fluids well and Propofol infusing well to RUE. Pt is responsive, opens eyes to firm tapping. ET tube in place 7.5 cm, 24cm at lip line. Vent settings checked at bedside SIMV 6, TV 500, FiO2 40%, PS 10. OGT in place, placement checked via auscultation and aspiration of gastric contents noted. Mclaughlin cath draining well to gravity.Patient has bowel movement, patient cleaned and repositioned in bed. Call light in reach. Aspiration and fall precautions in place. No other needs noted at this time. Continue to monitor pt closely.
--- NOTE | 2016-06-21 07:50 | NUR ---
RT Change: RT Changed SIMV 10 due to increased respirations. Patient suctioned and pulled up and repositioned in bed. Restraints in place. Continue to monitor.
--- NOTE | 2016-06-21 07:50 | NUR ---
RT NOTES Vent settings to SIMV 10 due to pt's respirations did not improve despite HHN tx and SX. RN made aware. Will cont. to monitor pt.
[2016-06-21] MEDS: ENOXAPARIN SODIUM 40 MG/0.4 ML SYRINGE SUBCUT SCH (08:48)
[2016-06-21] MEDS: LACTOBACILLUS RHAMNOSUS GG 1 CAP CAPSULE NG SCH ×2 (08:48→20:17)
[2016-06-21] MEDS: PANTOPRAZOLE SODIUM 40 MG/VIAL (PROTONIX) IVP SCH (08:48)
[2016-06-21 09:33] LABS: BLOOD GAS PH 7.444 (7.350-7.450)
[2016-06-21 09:34] LABS: ABG TOTAL HEMOGLOBIN 14.3 G/dL (12.0-18.0); BLOOD GAS BASE EXCESS 4.4 mmol/L (-3.0-3.0); BLOOD GAS HHB 3.2 % (0.0-6.0); BLOOD O2Hb% 96.3 % (94.0-97.0)
--- NOTE | 2016-06-21 09:34 | NUR ---
RN Rounds: AM meds given per MD order. Pt tolerates well. Call light in reach. Family at bedside. Pt is calm at this time. No acute signs of distress noted. Aspiration precautions in place. Continue to monitor.
--- NOTE | 2016-06-21 11:25 | NUR ---
RT NOTES Vents settings to AC [address] Schmidt's order. Will monitor pt.
--- NOTE | 2016-06-21 11:30 | NUR ---
Change RT: Change AC 10, Per Dr. Brayan duncan to increase sedation if needed.
--- NOTE | 2016-06-21 11:43 | NUR ---
Nutrition F/U Admitting Diagnosis Acute respiratory failure, COPD Past Medical History Asthma Pertinent Medications (modified) protonix IV, solu-medrol, ativan, D50%-syringe, glucose, SSI, propofol, levofloxacin/dextrose, lovenox, culturelle, ceftriaxone sodium propofol seen infusing at 4.2 ml/hr (10 mcg/kg/min), which provides approximately 111 kcal/day Current Diet Order Nutren Pulmonary at 20 ml/hr, Free water flush 200 ml q4h via OGT (x2 days) Height (Feet) 5 feet Height (Inches) 5.00 inches Weight (Pounds) 154 pounds (admission); 157 lb, 71 kg (06/21/16) - bedscale Weight (Calculated Kilograms) 69.828604 kilograms Patient Weight 69.853 kg Body Mass Index 25.62 kg/m2 (normal) Wellborn/Adjusted Body Weight IBW: 136 lb, 62 kg. 113% of IBW Estimated Needs 1596 kcal/day (PSU 2003b - nonobese, mechanically ventilated) Grams of Protein per Day 84-140 gm/day (1.2-2 gm/kg CBW for critically ill state) Fluid Intake Goal 1.8-2.1 L/day (25-30 kcal/kg CBW for adult maintenance) Pertinent Labs 06/21/16: POC BG 208 H 06/20/16: BG 193 H (improving), WBC 16.9 H (improving), Hgb 13.4 L (improving), eGFR 90 WNL (improved) 06/19/16: Mg 2.6 H, Phos 2.5 L Other Subjective Data Physical assessment: pt +intubated, +sedated, +obtunded, w/bilateral soft wrist restraints. Appears adequately-nourished for ht. No family present to engage in RD verbal interview. Bedscale reads 157 lb, no significant wt change since admission. Abdominal distention noted. GI Integrity: Per EMR, abdomen is soft and distended with active bowel sounds. BM x1 06/21/16. Tube Feeding: Seen running at 30 ml/hr. regulatory intern notified RN of current order, RN changed to 20 ml/hr per MD orders. Per RN, no residuals collected today, pt is tolerating. Current regimen (with current propofol rate) provides 831 kcal, 33 gm protein, and 1575 ml of free water each day. This meets 52% of estimated caloric needs and 39% of lower end of estimated protein needs. Integumentary: Tyrone scale 13, no skin issues noted. Plans/procedures: Per RN, possible extubation today, but d/t pt agitation and high respirations, may be cancelled. Current tube feeding regimen provides less than 55% of estimated needs. Pt is not yet meeting optimal nutritional needs. Pt is not appropriate for nutrition education. Problem, Etiology, Signs/Symptoms (modified) Inadequate nutritional needs related to critically ill state as evidenced by current tube feeding regimen meeting 52% of estimated caloric needs and 39% of lower end of estimated protein needs. Expected Outcomes or Goals - Monitor advancement of diet w/ goal of pt meeting at least 50% of estimated nutritional needs, labs trending WNL, normal GI function, and skin integrity/wt maintenance Dietitian Recommendations If propofol continues to infuse at current rate of 4.2 ml/hr: *Consider Nutren Pulmonary at 40 ml/hr, Prosource daily, Free Water Flush: 200 ml Q4h via OGT Provides: 1566 kcal/day, 65 gm protein/day, and 1950 ml free water/day Meets: 98% of estimated caloric needs and 77% of lower end of estimated protein needs If propofol is discontinued: *Consider Nutren Pulmonary at 35 ml/hr, increase by 5 ml Q12h to goal rate of 45 ml/hr, Prosource daily, Free Water Flush: 200 ml Q4h via OGT Provides: 1620 kcal/day, 88 gm protein/day, and 2045 ml free water/day Meets: 102% of estimated caloric needs and 105% of lower end of estimated protein needs Follow Up High Risk: F/U in 2-3days Addendum: 06/21/16 at [address] CORRECTIONS: Lisa wt: 158 lb, 72 kg (06/19/16); 157 lb, 71 kg (06/21/16) Dietitian Recommendations If propofol continues to infuse at current rate of 4.2 ml/hr: *Consider Nutren Pulmonary at 40 ml/hr, Prosource daily, Free Water Flush: 200 ml Q4h via OGT Provides (w/ calories from propofol): 1611 kcal/day, 80 gm protein/day, and 1950 ml free water/day Meets: 101% of estimated caloric needs and 95% of lower end of estimated protein needs If propofol is discontinued: *Consider Nutren Pulmonary at 35 ml/hr, increase by 5 ml Q12h to goal rate of 45 ml/hr, Prosource daily, Free Water Flush: 200 ml Q4h via OGT Provides: 1680 kcal/day, 88 gm protein/day, and 2045 ml free water/day Meets: 102% of estimated caloric needs and 105% of lower end of estimated protein needs RD reviewed/approved compensation intern's note. LP, RD
--- NOTE | 2016-06-21 13:20 | NUR ---
Rounds: Pt pulled up and repositioned in bed. No acute signs of distress noted. Pt is calm and non-combative at this time. Call light in reach. Aspiration precautions in place. Continue to monitor.
--- NOTE | 2016-06-21 15:52 | NUR ---
Rounds: Pt sitting semi-fowlers in bed. Pt is calm and sleeping at this time. No acute signs of distress noted. OG tube and vent in place. Call light in reach. Fall precautions in place. Continue to monitor.
--- NOTE | 2016-06-21 17:30 | NUR ---
Rounds: Blood sugar checked and coverage given. Pt tolerates vent settings well. No acute signs of distress noted. IV intact to RUE infusing IV fluids well, IV intact to RAC infusing propofol well at this time. Call light in reach. Aspiration and fall precautions in place. Continue to monitor pt closely.
--- NOTE | 2016-06-21 18:10 | NUR ---
Propofol Changed: Propofol increased to 15mcg/kg/hr. Patient is kicking around and attempts to pull out lines. Pt is biting ET tube. Charge nurse, Krupa mendez.
--- NOTE | 2016-06-21 18:30 | NUR ---
Propofol Changed: Propofol increased to 20mcg/kg/hr. Patient is kicking around and attempts to pull out lines. Charge nurse, Krupa mednez.
--- NOTE | 2016-06-21 18:38 | NUR ---
Closing Note/Page Dr. Morales: Page Dr. Morales for renewal of restraints. Awaiting page back. IV intact to RUE and LUE with no redness or swelling noted to site. Mclaughlin cath draining well to gravity. Vent and trach in place. Bilateral wrists restraints in place. Pt is agitated and kicking around in bed at this time. BM noted, pt cleaned and repositioned. Call light in reach. Fall and aspiration precautions in place. Endorse plan of care to NOC RN.
--- NOTE | 2016-06-21 19:30 | NUR ---
PM ASSESSMENT: Patient restless, kicking pillows and sheets. Non-verbal, does not follow commands. Patient on ETT 7.5, 24 cm on lipline. Vents settings AC 12, TV 500, FiO2 40%. Afebrile. Sinus rhythm on the monitor. OGT present with Nutren pulmonary running at 20ml/hr. with 20 cc residual noted. IV access on the right AC G20 and left hand G20, patent and intact. No swelling or redness on both IV sites. Patient on IVF D5 1/2 NS running at 50ml/hr and Diprivan at 20mcg currently. Bilateral wrist restraints in place with good circulation on bilateral upper extremities. Mclaughlin cath draining yellow urine with sediments. HOB elevated at 30 degrees with 2 side rails up and bed in lowest level. Bed brakes locked. Call light within reach. Will continue to monitor.
[2016-06-21] MEDS: cefTRIAXone 1 GM in D5W 50 ML IV SCH (19:52)
--- NOTE | 2016-06-21 20:14 | NUR ---
PT UPDATE: Patient noticed to be kicking and moving from side to side. No acute distress or SOB noted at this time. Thick whitish secretions noted and suctioned from the mouth. Will continue to monitor.
--- NOTE | 2016-06-21 22:30 | NUR ---
TITRATION: Patient's diprivan titrated down to 15mcg. Patient calm at this time. No acute distress or SOB noted. Will continue to monitor.
--- NOTE | 2016-06-21 23:40 | NUR ---
TITRATION: Titrated Diprivan back to 20mcg due to patient became more awake and started kicking and squirming around the bed. Blood pressure elevated but no acute distress or SOB noted. Will continue to monitor patient.
[2016-06-22] VITALS (37 sets, daily range): BP systolic 127–186; BP diastolic 64–103; PULSE 69–125; RESP 20–38; TEMP 98.3–99.8; O2SAT 96–99
[2016-06-22] MEDS: INSULIN REGULAR, HUMAN 100 UNITS/ML, 10 ML VIAL (novoLIN R) SUBCUT PRN ×5 (00:01→23:34)
[2016-06-22] MEDS: LORazepam 2 MG/ML VIAL IVP PRN ×2 (00:59→20:06)
[2016-06-22] MEDS: LevALBUTEROL HCL 1.25 MG/0.5 ML *CONC.* VIAL.NEB (XOPENEX CONC.) INH SCH ×4 (01:16→20:17)
[2016-06-22] MEDS: PROPOFOL DRIP 100 ML IV PRN ×4 (01:43→23:29)
--- NOTE | 2016-06-22 03:21 | NUR ---
PT UPDATE: Patient resting comfortably at this time. Vents settings and tube feeding tolerating well. Patient in no acute distress at this time. Will continue to monitor.
[2016-06-22] MEDS: D5/0.45 NS 1,000 ML IV SCH ×3 (03:22→20:25)
[2016-06-22] MEDS: methylPREDNISolone SOD SUCC/PF 62.5 MG/ML VIAL IVP SCH ×5 (05:32→23:29)
--- NOTE | 2016-06-22 05:36 | NUR ---
IV RE-INSERTION: Started another IV on the right wrist . Successful after 2 attempts. Resumed current IVF of D5 1/2 NS and regulated @ 50ml per hour. Will observe for any signs of infiltration.
--- NOTE | 2016-06-22 06:11 | NUR ---
automotive engineering technician at bedside for chest x-ray.
--- NOTE | 2016-06-22 07:49 | NUR ---
TITRATION: Titrated Diprivan increased to 30mcg due to patient became more awake and started kicking and squirming around the bed. Blood pressure elevated but no acute distress or SOB noted. Will continue to monitor patient.
[2016-06-22] MEDS: PANTOPRAZOLE SODIUM 40 MG/VIAL (PROTONIX) IVP SCH (09:35)
[2016-06-22] MEDS: LACTOBACILLUS RHAMNOSUS GG 1 CAP CAPSULE NG SCH (09:35)
[2016-06-22] MEDS: hydrALAZINE HCL 20 MG/ML VIAL IVP PRN ×2 (09:36→17:25)
[2016-06-22 09:44] LABS: ABG TOTAL HEMOGLOBIN 14.9 G/dL (12.0-18.0); BLOOD GAS BASE EXCESS 6.6 mmol/L (-3.0-3.0); BLOOD GAS COHb% 0.4 % (0.5-1.5); BLOOD GAS HHB 2.9 % (0.0-6.0); BLOOD GAS PH 7.471 (7.350-7.450); BLOOD O2Hb% 96.1 % (94.0-97.0)
[2016-06-22] MEDS: ENOXAPARIN SODIUM 40 MG/0.4 ML SYRINGE SUBCUT SCH (09:51)
[2016-06-22 10:23] LABS: BASOPHILS # (AUTO) 0.1 K/uL (0.0-0.2); BASOPHILS % (AUTO) 0.7 % (0.0-2.0); HEMATOCRIT 41.5 % (36-54); HEMOGLOBIN 14.1 g/dL (14.0-18.0); LYMPHOCYTES # (AUTO) 0.6 K/uL (1.0-5.5); LYMPHOCYTES % (AUTO) 4.2 % (20.5-51.5); MEAN CORPUSCULAR HEMOGLOBIN 30 pg (27-31); MEAN CORPUSCULAR HGB CONC 34 % (32-36); MEAN CORPUSCULAR VOLUME 88 fL (79.0-98.0); MONOCYTES # (AUTO) 0.6 K/uL (0.0-1.0); MONOCYTES % (AUTO) 4.4 % (1.7-9.3); NEUTROPHILS # (AUTO) 12.4 K/uL (1.8-7.7); NEUTROPHILS % (AUTO) 90.7 % (40.0-70.0); PLATELET COUNT (AUTO) 236 K/uL (130-430); RED BLOOD CELL COUNT(AUTO) 4.72 MIL/uL (4.2-6.2); RED CELL DISTRIBUTION WIDTH 11.7 % (9.0-15.0); WHITE BLOOD COUNT (AUTO) 13.8 K/uL (4.8-10.8)
[2016-06-22 10:38] LABS: ALBUMIN 3.2 g/dL (3.4-4.8); CALCIUM 8.5 mg/dL (8.4-11.0); CREATININE 0.83 mg/dL (0.55-1.30); POTASSIUM 3.8 mmol/L (3.5-5.1); TOTAL BILIRUBIN 0.4 mg/dL (0.0-1.0); TOTAL PROTEIN, SERUM 6.5 g/dL (6.4-8.3)
--- NOTE | 2016-06-22 14:44 | NUR ---
DISCHARGE PLANNING Called Bethany, sister [phone] left voice message requesting return call back. Called [facility] located [address] [phone] spoke with Venessa who confirmed patient has been seen under care of Dr Gale Rico.
--- NOTE | 2016-06-22 17:03 | NUR ---
RT NOTES Vent settings to SIMV [address] Schmidt's order. No immediate adverse reactions noted.
--- NOTE | 2016-06-22 17:20 | NUR ---
RT NOTES Pt. cont. to tolerate SIMV. No respiratory distress noted. H.R [address]
--- NOTE | 2016-06-22 18:02 | NUR ---
PT NOTED TO BE TACHYCARDIC @118 AND TACHYPNIC @32, SUCTIONED MOD AMOUNT OF THICK PHLEGM, REPOSITIONED FOR COMFORT . WILL CONT TO MONITOR.
--- NOTE | 2016-06-22 18:35 | NUR ---
VENT SETTINGS CHANGE Pt cont to be tachycardic @120bpm, tachypnic at 36min, RT called and changed setting backs to ac-12, will cont to monitor.
--- NOTE | 2016-06-22 19:25 | NUR ---
Beginning of shift assessment Pt lying in bed w eyes closed, opens eyes briefly to stimulation but does not track. Pt intubated w ETT, was not tolerating SIMV mode well, pt tachycardic, HR 120's. RT changed vent settings back to AC mode. Temp of 99.2. 20 g to R hand infusing Diprivan @ 30 mcg/min, 20 g to R AC infusing IVF, 20 g to L hand, SL. All sites patent, no s/s of infiltration or infection. Pt restless, kicking legs, attempting to move arms, moving head back and forth. Bilateral soft wrist restraints in place. Will medicate w Ativan per MD order. Mclaughlin catheter in place draining dark yellow urine w scant blood in tubing. Will continue to monitor. OG tube in place infusing tubefeeding, correct placement verified via auscultation. No residual noted. Skin intact. Bed in low position, will continue to monitor. Received in report, from AM nurse, that blood sugar was 186 and still needs insulin administered. Will administer insulin per MD order and continue to monitor.
[2016-06-22] MEDS: cefTRIAXone 1 GM in D5W 50 ML IV SCH (19:40)
[2016-06-23] VITALS (35 sets, daily range): BP systolic 99–160; BP diastolic 58–95; PULSE 53–99; RESP 12–29; TEMP 97.9–98.6; O2SAT 96–100
--- NOTE | 2016-06-23 | NUR ---
Oral care Oral care provided. Pt tolerated well. Repositioned pt w pillows for comfort. No acute changes in condition noted at this time. Will continue to monitor.
[2016-06-23] MEDS: LevALBUTEROL HCL 1.25 MG/0.5 ML *CONC.* VIAL.NEB (XOPENEX CONC.) INH SCH ×4 (01:37→19:36)
--- NOTE | 2016-06-23 03:05 | NUR ---
Diprivan drip Pt BP and HR decreasing, 99/58, HR 77. Pt calm, decreased Diprivan drip to 25 mcg/min. Will continue to monitor
--- NOTE | 2016-06-23 03:45 | NUR ---
Diprivan drip Pt remains calm. HR 67, Diprivan drip decreased to 20 mcg/min. Will continue to monitor
--- NOTE | 2016-06-23 04:00 | NUR ---
CHG bath CHG bath and linen change provided. Oral care rendered. Repositioned pt w pillows for comfort. No acute changes in condition noted at this time. Will continue to monitor
[2016-06-23] MEDS: methylPREDNISolone SOD SUCC/PF 62.5 MG/ML VIAL IVP SCH ×4 (05:49→23:12)
[2016-06-23] MEDS: INSULIN REGULAR, HUMAN 100 UNITS/ML, 10 ML VIAL (novoLIN R) SUBCUT PRN ×3 (05:50→17:58)
--- NOTE | 2016-06-23 06:00 | NUR ---
Diprivan Drip Pt calm, Diprivan drip decreased to 15 mcg/min. Will continue to monitor
--- NOTE | 2016-06-23 06:10 | NUR ---
Diprivan Drip Pt attempting to sit up in bed, kicking legs, pulling against wrist restraints. Diprivan drip increased to 20 mcg/min. Will continue to monitor.
[2016-06-23] MEDS: PROPOFOL DRIP 100 ML IV PRN ×3 (06:30→22:30)
--- NOTE | 2016-06-23 06:30 | NUR ---
Diprivan Drip Pt continues to attempt to sit up in bed, kicking legs, pulling against wrist restraints. Diprivan drip increased to 25 mcg/min. Will continue to monitor.
[2016-06-23] MEDS: LORazepam 2 MG/ML VIAL IVP PRN ×4 (06:35→22:45)
--- NOTE | 2016-06-23 07:05 | NUR ---
AM Assessment Received Pt lethargic. Pt is on Diprivan at 25mcg/kg/min. Pt easily aroused by light stimuli and voice. Pt is intubated. ETT noted 22cm at the lip line. Vent settings 12 AC, TV 500, FiO2 40%. O2 sat at 98%. Pt tolerating vent settings. Lung sounds auscultated, clear lung sounds noted throughout all lobes. OG tube noted. OG tube flush and patent. 10mL of residual noted. OG tube currently infusing Nutren pulmonary feeding @25mL/hr. Abd. auscultated, bowel sounds noted throughout all quadrant. Abd soft and non distended. IV access noted right hand 20G, left hand 20G, and right AC 20G. All ports patent with blood returned. No s/s of infiltration or inflammation noted. Mclaughlin cath noted. Mclaughlin cath patent draining shahnaz yellow urine. Mclaughlin secure device noted. Bilateral soft restraints in placed for safety measures. Wrist restraints taken off and assessed. Skin is warm to the touch, cap refills less than 3 secs, bilateral radial pulse noted, skin intact. Assessment done, plan of care discussed with Pt, HOB elevated 45 degree angle, call light within easy reach, bed at lowest position, will continue to monitor.
[2016-06-23] MEDS: ENOXAPARIN SODIUM 40 MG/0.4 ML SYRINGE SUBCUT SCH (08:26)
[2016-06-23] MEDS: PANTOPRAZOLE SODIUM 40 MG/VIAL (PROTONIX) IVP SCH (08:26)
[2016-06-23] MEDS: D5/0.45 NS 1,000 ML IV SCH ×2 (09:45→18:09)
--- NOTE | 2016-06-23 11:26 | NUR ---
Agitation and restlessness Pt appears restless and agitated. Pt noted kicking feet and moving around in bed. Reposition Pt for comfort measures and administered Ativan as ordered for anxiety. Diprivan currently infusing. Bilateral wrist restraints still in placed for comfort measures. HOB elevated 45 degree angle, call light within easy reach, bed at lowest position, will continue to monitor.
--- NOTE | 2016-06-23 14:30 | NUR ---
MD rounds Pt is lethargic. Pt easily aroused by light stimuli and voice. Pt tolerating vent settings. Dr. Schmidt at the bedside discussing plan of care. New orders acknowledge and noted. V/S stable, call light within easy reach, bed at lowest position, HOB elevated 45 degree angle, will continue to monitor.
--- NOTE | 2016-06-23 16:30 | NUR ---
BM and agitation Pt lethargic and restless. Pt noted kicking leg and moving around in bed. Medication was administered as ordered for agitation. Pt had a loose black stool. Fabi care provided with assistance from registered nursing professor. Pt tolerated care. V/S stable, call light within easy reach, bed at lowest position, bilateral wrist restraints still in placed for safety measures, Diprivan currently infusing at 25mcg/kg/min, HOB elevated 45 degree angle, will continue to monitor.
[2016-06-23] MEDS: MORPHINE 2 MG/ML INJ. SYRINGE IVP PRN ×2 (16:38→22:45)
--- NOTE | 2016-06-23 17:01 | NUR ---
Nutrition F/U Admitting Diagnosis Acute respiratory failure, COPD Past Medical History Asthma Pertinent Medications (modified) protonix IV, solu-medrol, ativan, D50%-syringe, glucose, SSI, propofol, levofloxacin/dextrose, lovenoxe, ceftriaxone sodium, morphine, dextrose/NaCl propofol seen infusing at 10.5 ml/hr (25 mcg/kg/min), which provides approximately 277 kcal/day Current Diet Order Nutren Pulmonary at 30 ml/hr, Prosource daily, Free water flush 200 ml q4h via OGT (x2 days) Height (Feet) 5 feet Height (Inches) 5.00 inches Weight (Pounds) 154 pounds (admission); 158 lb, 72 kg (06/19/16); 157 lb, 71 kg (06/21/16) 157 lb Weight (Calculated Kilograms) 69.567572 kilograms Patient Weight 69.853 kg Body Mass Index 25.62 kg/m2 (normal) [place]/Adjusted Body Weight IBW: 136 lb, 62 kg. 113% of IBW Estimated Needs 1596 kcal/day (PSU 2003b - nonobese, mechanically ventilated) Grams of Protein per Day 84-140 gm/day (1.2-2 gm/kg CBW for critically ill state) Fluid Intake Goal 1.8-2.1 L/day (25-30 kcal/kg CBW for adult maintenance) Pertinent Labs 06/22/16: BG 214 H, WBC 13.8 H, BUN 25 H, AST 41 H, ALB 3.2 L 06/19/16: Mg 2.6 H, Phos 2.5 L Other Subjective Data Physical assessment: pt +intubated, +sedated, +obtunded, w/bilateral soft wrist restraints. GI Integrity: Per EMR, abdomen is soft and non-distended with active bowel sounds. I/Os (06/23/16): 654/550 (+104 ml); 0 BM today. Tube Feeding: Seen running at 30 ml/hr. internal control specialist notified RN of current order, RN changed to 20 ml/hr per MD orders. Per RN, no residuals collected today, pt is tolerating. Current regimen (with current propofol rate) provides 831 kcal, 33 gm protein, and 1575 ml of free water each day. This meets 52% of estimated caloric needs and 39% of lower end of estimated protein needs. Integumentary: Tyrone scale 13, no skin issues noted. Plans/procedures: Per RN, plan to eventually wean propofol and off ventilator. Pt is not appropriate for nutrition education. Current TF regimen (with propofol is providin kcal, 64 gm protein/day, 1763 ml free water per day. This meets 89% of estimated energy needs and 76% of estimated protein needs per day. Recommend TF regimen: Nutren Pulmonary at 35 ml/hr, Prosource BID, Free Water Flush: 200 q4hr via OGT To provide (with current propofol rate): 1657 kcals, 81 gm protein, 1857 free water per day. This would meet 104% of estimated kcal needs and 104% of estimated protein needs per day. RD left note for MD to sign. Problem, Etiology, Signs/Symptoms (modified) Inadequate nutritional needs related to critically ill state as evidenced by current tube feeding regimen meeting 52% of estimated caloric needs and 39% of lower end of estimated protein needs. *ongoing Expected Outcomes or Goals - Monitor advancement of diet w/ goal of pt meeting at least 50% of estimated nutritional needs, labs trending WNL, normal GI function, and skin integrity/wt maintenance Dietitian Recommendations * Recommend TF regimen: Nutren Pulmonary at 35 ml/hr, Prosource BID, Free Water Flush: 200 q4hr via OGT To provide (with current propofol rate): 1657 kcals, 81 gm protein, 1857 free water per day. This would meet 104% of estimated kcal needs and 104% of estimated protein needs per day. Comments RD reviewed/approved program management intern's note. TK, RD Follow Up High Risk: F/U in 2-3days
--- NOTE | 2016-06-23 19:30 | NUR ---
Closing notes Pt lethargic. Pt easily aroused by light stimuli. Pt currently tolerating vent settings. No acute resp distress noted. Diprivan currently infusing at 25mcg/kg/min, IVF @30mL/hr, Nutren pulmonary @ 35ml/hr, HOB elevated 45 degree angle, bed at lowest position, call light within easy reach, bilateral wrist restraint still in placed for safety measures, will endorse all patient care to on coming RN.
--- NOTE | 2016-06-23 20:00 | NUR ---
Received pt sedated on Propofol at 25mcg. Pt occasionally attempts to open eyes when his name is called. SR on tele with occasional periods of SB. Afebrile. On vent via ETT and tolerating AC setting well. OGT with Nutren Pulmonary at 35ml/hr. Mclaughlin catheter in place and secured. Left hand PIV saline locked. Right hand PIV with Propofol and Right AC PIV with IVF. No s/s infiltration noted. Bilateral soft wrist restraints in place. Head of bed elevated. Will continue to monitor.
--- NOTE | 2016-06-23 20:05 | NUR ---
Oral care completed. Pt tolerated well. Thick, clear secretions with suctioning. Will continue to monitor.
[2016-06-23] MEDS: cefTRIAXone 1 GM in D5W 50 ML IV SCH (20:13)
[2016-06-24] VITALS (36 sets, daily range): BP systolic 108–175; BP diastolic 57–103; PULSE 51–92; RESP 13–29; TEMP 97.7–98.8; O2SAT 93–99
--- NOTE | 2016-06-24 | NUR ---
Propofol at 15mcg/kg/min. SB to SR on tele. Afebrile. Bilateral wrist restraints remain in place. Head of bed elevated. Endorsed to ANA Odom. Will continue to monitor.
[2016-06-24] MEDS: LevALBUTEROL HCL 1.25 MG/0.5 ML *CONC.* VIAL.NEB (XOPENEX CONC.) INH SCH ×4 (00:12→20:00)
--- NOTE | 2016-06-24 02:00 | NUR ---
Nursing Notes Patient resting comfortably in bed, obtunded. Patient in no acute distress. Breathing even and unlabored on mech vent. IV sites patent/clean/dry. Tubing changed for Diprivan drip, infusing at 15mcg/kg/hr, will continue to monitor using [place] scale. Bedbath and incontinence care provided. CHG bath given. Patient remains on bilateral soft wrist restraints, tolerating well. Call light in hand, fall precautions in place. Will continue to monitor for changes and safety.
[2016-06-24] MEDS: PROPOFOL DRIP 100 ML IV PRN ×3 (02:05→17:15)
[2016-06-24] MEDS: LORazepam 2 MG/ML VIAL IVP PRN ×5 (02:36→20:24)
--- NOTE | 2016-06-24 04:00 | NUR ---
Nursing Notes Patient resting in bed, arousable to name. Patient appears in no acute distress. Breathing even and unlabored on mechanical vent. IV sites patent/clean/dry. Diprivan drip infusing @ 15mcg/kg/min, will continue to monitor using [place] scale. Mclaughlin draining shahnaz urine to gravity. Bilateral soft wrist restraints in place. Medicated patient for pain per MD order. Oral care provided. Call light in hand, fall precautions in place. Will continue to monitor for changes and safety.
[2016-06-24] MEDS: MORPHINE 2 MG/ML INJ. SYRINGE IVP PRN ×3 (04:11→17:22)
--- NOTE | 2016-06-24 04:20 | NUR ---
Diprivan Drip Patient attempting to set up in bed, pulling on restraints, attempting to remove ETT tube, Diprivan drip increased to 20mcg/kg/minute. Will continue to monitor.
--- NOTE | 2016-06-24 04:40 | NUR ---
Diprivan Drip Patient continue to pull against restraints, attempting to pull ETT, becoming restless. Diprivan drip increased to 25mcg/kg/min, will continue to monitor using [place] scale.
[2016-06-24] MEDS: methylPREDNISolone SOD SUCC/PF 62.5 MG/ML VIAL IVP SCH ×4 (05:23→23:42)
[2016-06-24] MEDS: INSULIN REGULAR, HUMAN 100 UNITS/ML, 10 ML VIAL (novoLIN R) SUBCUT PRN ×4 (05:27→23:47)
[2016-06-24 05:49] LABS: BASOPHILS % (AUTO) 0.2 % (0.0-2.0); HEMATOCRIT 40.3 % (36-54); HEMOGLOBIN 13.4 g/dL (14.0-18.0); LYMPHOCYTES # (AUTO) 0.3 K/uL (1.0-5.5); LYMPHOCYTES % (AUTO) 2.1 % (20.5-51.5); MEAN CORPUSCULAR HEMOGLOBIN 30 pg (27-31); MEAN CORPUSCULAR HGB CONC 33 % (32-36); MEAN CORPUSCULAR VOLUME 90 fL (79.0-98.0); MONOCYTES # (AUTO) 0.4 K/uL (0.0-1.0); MONOCYTES % (AUTO) 2.9 % (1.7-9.3); NEUTROPHILS # (AUTO) 14.8 K/uL (1.8-7.7); NEUTROPHILS % (AUTO) 94.8 % (40.0-70.0); PLATELET COUNT (AUTO) 210 K/uL (130-430); RED CELL DISTRIBUTION WIDTH 12.2 % (9.0-15.0); WHITE BLOOD COUNT (AUTO) 15.5 K/uL (4.8-10.8)
[2016-06-24 05:54] LABS: CALCIUM 8.3 mg/dL (8.4-11.0); CREATININE 0.9 mg/dL (0.55-1.30); POTASSIUM 4.3 mmol/L (3.5-5.1)
--- NOTE | 2016-06-24 05:59 | NUR ---
Diprivan Drip Patient resting comfortably in bed, Diprivan decreased to 20mcg/kg/min, will continue to monitor using [place] scale.
--- NOTE | 2016-06-24 06:37 | NUR ---
Closing Notes Patient resting comfortably in bed, obtunded. Patient in no acute distress. Breathing even and unlabored on mech vent. IV sites patent/clean/dry, no S/S infection/infiltration noted. Diprivan drip infusing at 20mcg/kg/minute, will continue to monitor using [place] scale. Patient tolerating tube feeding, HOB elevated. Mclaughlin draining to gravity. Bilateral soft wrist restraints in place. Needs addressed throughout shift. Call light in hand, fall precautions in place. Will continue to monitor for changes and safety, and endorse all patient care/needs to oncoming nurse.
--- NOTE | 2016-06-24 07:05 | NUR ---
AM Assessment Received Pt lethargic. Pt is on Diprivan at 20mcg/kg/min. Pt easily aroused by light stimuli and voice. Pt is intubated. ETT noted 24cm at the lip line. Vent settings 12 AC, TV 500, FiO2 40%. O2 sat at 97%. Pt tolerating vent settings. Lung sounds auscultated, clear lung sounds noted throughout all lobes. OG tube noted. OG tube flush and patent. 10mL of residual noted. OG tube currently infusing Nutren pulmonary feeding @35mL/hr. Abd. auscultated, bowel sounds noted throughout all quadrant. Abd soft and non distended. IV access noted right hand 20G, left hand 20G, and right AC 20G. All ports patent with blood returned. No s/s of infiltration or inflammation noted. Mclaughlin cath noted. Mclaughlin cath patent draining shahnaz yellow urine. Mclaughlin secure device noted. Bilateral soft restraints in placed for safety measures. Wrist restraints taken off and assessed. Skin is warm to the touch, cap refills less than 3 secs, bilateral radial pulse noted, skin intact. Assessment done, plan of care discussed with Pt, HOB elevated 45 degree angle, call light within easy reach, bed at lowest position, will continue to monitor.
[2016-06-24] MEDS: ENOXAPARIN SODIUM 40 MG/0.4 ML SYRINGE SUBCUT SCH (08:10)
[2016-06-24] MEDS: PANTOPRAZOLE SODIUM 40 MG/VIAL (PROTONIX) IVP SCH (08:10)
--- NOTE | 2016-06-24 08:45 | NUR ---
MD rounds Pt is lethargic. Pt easily aroused by voice and light stimuli. Pt tolerating vent settings. Dr. Sterling at the bedside discussing plan of care. New orders acknowledge and noted. IVF, OG feeding, and Diprivan currently infusing. HOB elevated 45 degree angle, call light within easy reach, bed at lowest position, bilateral wrist restraints in placed for safety measures, will continue to monitor.
--- NOTE | 2016-06-24 09:00 | NUR ---
Update Pt's contact information Pt awake. Pt appears restless and agitated. Pt noted kicking at attempting to sit up in bed. Pt unable to follow commands. Reorientated Pt to place, time, and situation. Medication was Ativan was administered as ordered. Diprivan currently infusing at 25mcg/kg/min. Pt's nephew (Pancho Sargent) at the bedside. Plan of care discussed with Pt's nephew. Pt's nephew stated Pt lives at home with his sister (Efrain Juarez) and occasionally lives in the street when he is using meth. Pt's nephew stated Efrain Juarez will be the best person to contact regrading Pt's overall care. Pt also has a daughter named Hazel Sargent. Efrain Juarez [phone], Hazel Hernandezpcion [phone], Pancho Sargent [phone] Addendum: 06/27/16 at 1900 by Shiela Pitts RN Enter Data incorrect spelling Efrain Juarez. Correct spelling is Massiel Juarez.
[2016-06-24 09:29] LABS: BLOOD GAS PH 7.453 (7.350-7.450)
[2016-06-24 09:30] LABS: ABG TOTAL HEMOGLOBIN 15.4 G/dL (12.0-18.0); BLOOD GAS BASE EXCESS 4.5 mmol/L (-3.0-3.0); BLOOD GAS COHb% 0.1 % (0.5-1.5); BLOOD GAS HHB 7.2 % (0.0-6.0); BLOOD O2Hb% 92.2 % (94.0-97.0)
[2016-06-24 10:32] LABS: BARBITURATE, URINE NEGATIVE (NEG <=200); BENZODIAZEPINE, URINE POSITIVE (NEG <=150); CANNABINOID, URINE NEGATIVE (NEG <=50); COCAINE, URINE NEGATIVE (NEG <=150); METHAMPHETAMINES SCREEN,URINE NEGATIVE (NEG <=500); OPIATE, URINE POSITIVE (NEG <=100); PHENCYCLIDINE SCREEN,URINE NEGATIVE (NEG <=25); UR TRICYCLIC ANTIDEPRESSANTS NEGATIVE (NEG <=300); URINE AMPHETAMINE NEGATIVE (NEG <=500); URINE METHADONE NEGATIVE (NEG <=200); URINE OXYCODONE SCREEN NEGATIVE (NEG <=100); URINE PROPOXYPHENE SCREEN NEGATIVE (NEG <=300)
--- NOTE | 2016-06-24 11:30 | NUR ---
BM Pt awake. Pt noted tossing in bed and kicking BLE. While repositioning Pt for comfort measures, loose brown stool noted. Fabi care provided. Z guard applied for skin protection. Pt tolerated pericare. HOB elevated 45 degree angle, call light within easy reach, bed at lowest position, bilateral wrist restraints in placed for safety measures, will continue to monitor.
--- NOTE | 2016-06-24 13:57 | NUR ---
BM Pt awake and lethargic. Pt tolerating vent settings. Diprivan currently infusing at 25mcg/kg/min. Pt tolerating SIMV 10, TV 500, FiO2 40. Pt had another loose dark brown stool. Fabi care, skin care, and CHG bath provided. Redness noted on buttock area. Z guard applied for skin care. Stool was collected. HOB elevated 45 degree angle, call light within easy reach, bed at lowest position, bilateral wrist restraints in placed for safety measures, will continue to monitor.
[2016-06-24] MEDS: D5/0.45 NS 1,000 ML IV SCH (14:14)
--- NOTE | 2016-06-24 17:45 | NUR ---
Agitation and restlessness Pt awake. Pt noted kicking BLE. Reposition Pt and administered pain medication as ordered and effective. Pt currently tolerating vent setting. HOB elevating 45 degree angle, call light within easy reach, bed at lowest position, will continue to monitor.
--- NOTE | 2016-06-24 18:27 | NUR ---
Closing notes Pt lethargic. Pt easily aroused by light stimuli. Pt currently tolerating vent settings. Vent setting SIMV 10, TV 500, FIO2 40%. No acute resp distress noted. Diprivan currently infusing at 25mcg/kg/min, IVF @30mL/hr, Nutren pulmonary @ 35ml/hr, HOB elevated 45 degree angle, bed at lowest position, call light within easy reach, bilateral wrist restraint still in placed for safety measures, will endorse all patient care to on coming RN.
--- NOTE | 2016-06-24 19:25 | NUR ---
PM ASSESSMENT: Patient on ETT 7.5, 24cm on lipline. Lethargic, non-verbal, does not follow commands. Vent settings SIMV 10, TV 500, FiO2 40%, pressure support 15, no peep. Afebrile. OGT clamped, no residual noted. Nutren Pulmonary running at 35ml/hr. IV access on the right AC G 20 and right hand G 20. No signs of redness or swelling on both IV sites. D5 1/2 NS running at 30ml/hr, Diprivan running at 25mcg/kg/min. Mclaughlin cath draining yellow urine with sediments. Redness noted on the scrotum. Patient noted to be squirming, kicking pillows. HOB elevated at 30 degrees with 2 side rails up and bed in lowest level. Bed brakes locked. Call light within reach. Will continue to monitor.
--- NOTE | 2016-06-24 19:30 | NUR ---
ADDITIONAL PM ASSESSMENT NOTES: Patient also has bilateral soft wrist restraints. Good circulation on both upper extremities noted.
[2016-06-24] MEDS ORDERED: cefTRIAXone 1 GM in D5W 50 ML IV SCH (20:00)
--- NOTE | 2016-06-24 20:17 | NUR ---
RT NOTES REC'D PT ON VENT WITH SETTINGS OF SIMV 10/550/PS15/Fi02 .40 VENT AND APNEA ALARMS ARE SET AND FUNCTIONING. MED NEB TX GIVEN IN LINE WITHOUT ADVERSE REACTION NOTED. ETT IS SECURE AT 24LL EQULA BILATERAL CHEST RISE PRESENT. BS SCATTERED CLEAR THROUGH OUT. NO RESP DISTRESS NOTED. AMBU BAG IS AT BEDSIDE.
[2016-06-25] VITALS (36 sets, daily range): BP systolic 91–167; BP diastolic 1–96; PULSE 66–126; RESP 14–32; TEMP 97.9–98.9; O2SAT 95–100
[2016-06-25] MEDS: LevALBUTEROL HCL 1.25 MG/0.5 ML *CONC.* VIAL.NEB (XOPENEX CONC.) INH SCH ×4 (00:57→20:29)
[2016-06-25] MEDS: PROPOFOL DRIP 100 ML IV PRN ×5 (01:00→23:58)
[2016-06-25] MEDS: hydrALAZINE HCL 20 MG/ML VIAL IVP PRN (02:46)
[2016-06-25] MEDS: LORazepam 2 MG/ML VIAL IVP PRN ×5 (02:47→16:25)
--- NOTE | 2016-06-25 02:57 | NUR ---
2ND BM: Patient noted to have black tarry stool. Patient in no acute distress or SOB. Vent settings tolerated well. Will continue to monitor.
--- NOTE | 2016-06-25 03:23 | NUR ---
RT NOTES PT PLACED ON AC MODE AT THIS TIME DUE TO INCREASE WOB, INDREASE RR, INCREASE HR. CURRENT SETTINGS AC10/500/40% VENT AND APNEA ALARMS ARE SET AND FUNCTIONING. RN MADE AWARE OF THE CHANGE. NO OTHER CHANGES.
--- NOTE | 2016-06-25 03:57 | NUR ---
PT UPDATE: Patient in no acute distress at this time. Vital signs wnl. Vent settings tolerated well at this time. Will continue to monitor.
--- NOTE | 2016-06-25 05:03 | NUR ---
Management Advisor at bedside drawing AM labs.
[2016-06-25] MEDS: methylPREDNISolone SOD SUCC/PF 62.5 MG/ML VIAL IVP SCH ×2 (05:37→11:41)
[2016-06-25] MEDS: INSULIN REGULAR, HUMAN 100 UNITS/ML, 10 ML VIAL (novoLIN R) SUBCUT PRN ×3 (05:43→17:42)
--- NOTE | 2016-06-25 05:59 | NUR ---
3RD BM/CHG: Black tarry stool still noted. Patient's scrotum excoriated, z guard applied. CHG bath done. No acute distress or SOB noted at this time. Will continue to monitor.
[2016-06-25 06:53] LABS: BASOPHILS # (AUTO) 0.1 K/uL (0.0-0.2); BASOPHILS % (AUTO) 0.3 % (0.0-2.0); HEMATOCRIT 40.7 % (36-54); HEMOGLOBIN 13.9 g/dL (14.0-18.0); LYMPHOCYTES # (AUTO) 0.3 K/uL (1.0-5.5); LYMPHOCYTES % (AUTO) 1.1 % (20.5-51.5); MEAN CORPUSCULAR HEMOGLOBIN 31 pg (27-31); MEAN CORPUSCULAR HGB CONC 34 % (32-36); MEAN CORPUSCULAR VOLUME 89 fL (79.0-98.0); MONOCYTES # (AUTO) 0.8 K/uL (0.0-1.0); MONOCYTES % (AUTO) 3.1 % (1.7-9.3); NEUTROPHILS # (AUTO) 23.1 K/uL (1.8-7.7); NEUTROPHILS % (AUTO) 95.5 % (40.0-70.0); PLATELET COUNT (AUTO) 236 K/uL (130-430); RED BLOOD CELL COUNT(AUTO) 4.56 MIL/uL (4.2-6.2); RED CELL DISTRIBUTION WIDTH 12.2 % (9.0-15.0); WHITE BLOOD COUNT (AUTO) 24.3 K/uL (4.8-10.8)
[2016-06-25 06:58] LABS: ALBUMIN 2.8 g/dL (3.4-4.8); CALCIUM 8.1 mg/dL (8.4-11.0); CREATININE 0.81 mg/dL (0.55-1.30); POTASSIUM 4.3 mmol/L (3.5-5.1); TOTAL BILIRUBIN 0.3 mg/dL (0.0-1.0); TOTAL PROTEIN, SERUM 5.7 g/dL (6.4-8.3)
--- NOTE | 2016-06-25 07:25 | NUR ---
Charge nurse talked to Dr. Sterling regarding black tarry stools and coffee ground residual. Charge nurse obtained new orders. orders acknowledged and noted. Will continue to monitor.
--- NOTE | 2016-06-25 07:30 | NUR ---
AM Assessment Received pt lethargic, responsive to name, unable to follow verbal commands, pt is restless. Respirations even and unlabored with ETT 7.5, 24 cm lip line to SIMV 10, TV 500, FiO2 40%, PS 15. Skin warm and dry. Eyes are red, skin flushed, afebrile. IV R AC 20G intact, patent, no infiltration noted with D5 1/2 NS 30 ml/hr. IV R hand 20G intact, patent, no infiltration noted with diprivan 25 mcg/kg/min. OG tube in place, auscultated for placement, aspirated 0 ml residual, on Nutren Pulmonary 35 ml/hr. Scrotum noted with excoriation. Mclaughlin in place draining shahnaz urine with sediments. Heart sounds regular, SR on monitor, HR 90. Adventitious lung sounds. Bowel sounds present. Abdomen soft and distended. Bed locked in lowest position. Bilateral wrist restraints in place for safety, no skin breakdown noted, pulses present. Bed locked in lowest position. Elevated extremities with pillow. Will continue to monitor.
--- NOTE | 2016-06-25 07:44 | NUR ---
Called Dr. Morrow with a consult, spoke with Lorraine from the exchange
[2016-06-25] MEDS ORDERED: PANTOPRAZOLE SODIUM 80 MG in NS 100 ML IV ONE (08:00)
[2016-06-25] MEDS: D5/0.45 NS 1,000 ML IV SCH ×2 (08:07→15:05)
--- NOTE | 2016-06-25 09:00 | NUR ---
Patient Update Pt restless and agitated. Noted dark loose stool. Fabi care and CHG bath given. Inserted flexiseal per MD order, insured patency, dark loose drainage noted. Started pt on protonix drip per Dr. Sterling's orders. Will continue to monitor.
[2016-06-25] MEDS: PANTOPRAZOLE SODIUM 40 MG in NS 50 ML IV SCH ×4 (09:19→23:43)
--- NOTE | 2016-06-25 12:00 | NUR ---
Dr. Morrow in to see pt.
--- NOTE | 2016-06-25 14:00 | NUR ---
Dr. Schmidt in to see pt
--- NOTE | 2016-06-25 15:00 | NUR ---
Consent for EGD Obtained consent from pt's sister, Efrain, for EGD procedure tomorrow and placed in chart.
[2016-06-25] MEDS: methylPREDNISolone SOD SUCC 40 MG/ML VIAL IVP SCH ×2 (17:37→23:36)
--- NOTE | 2016-06-25 19:10 | NUR ---
Closing/Endorsement Pt in bed calm with propofol 25 mcg/kg/min. Flexiseal in place with dark loose stool. Mclaughlin in place. All vital signs, drips, titrations recorded and placed in chart. Endorsed plan of care to Diamond PEREZ via SBAR tool and bedside round.
--- NOTE | 2016-06-25 20:00 | NUR ---
PM SHIFT ASSESSMENT, PT ON THE VENT , AC MODE. VERY RESTLESS.ON PROPOFOL DRIP. COUGHING, GAGGING AND THRASHING IN BED. PROPOFOL INCREASED TO 30 MCG/KG /MIN. SUCTIONED FOR LARGE AMTS OF ORAL SECRETIONS. PULLED UP IN BED AND MADE PT COMFORTABLE IN BED.
[2016-06-25 20:18] LABS: INR 0.9 (0.80-1.20); PROTHROMBIN TIME 10.3 SECS (9.5-12.5)
[2016-06-25] MEDS ORDERED: cefTRIAXone 1 GM in D5W 50 ML IV SCH (20:45)
--- NOTE | 2016-06-25 20:53 | NUR ---
SPOKE WITH EULALIA FOR CONSULT WITH DR ZAMAN.
--- NOTE | 2016-06-25 21:00 | NUR ---
PT CALM AND SLEEPING. PROPOFOL DECREASED TO 25MCG/KG/MIN PT CALM AND GREGORIO SCALE IS 4.
[2016-06-25] MEDS: MORPHINE 2 MG/ML INJ. SYRINGE IVP PRN (21:39)
--- NOTE | 2016-06-25 21:39 | NUR ---
PT RESTLESS AGAIN. PROPOFOL SITE LEAKING. MED WITH MORPHINE PER ORDER PT VERY RESTLESS.
[2016-06-25] MEDS ORDERED: cefTRIAXone 1 GM VIAL ONE (21:47)
--- NOTE | 2016-06-25 22:00 | NUR ---
HERE, SEPSIS PROTOCOL INITIATED AGAIN PT"S WBC IS UP 24.3. LACTIC ACID AND BLOOD CULTURES ORDERED.NO EXTRA FLUID GIVEN PER . ROCEPHIN IVPB ORDERED AND GIVEN.
--- NOTE | 2016-06-25 22:30 | NUR ---
IV SITE RESTARTED, NEW IV SITE ON LT FA WITH # 20 IV CATHETER AND DIPRIVAN SITE CHANGED TO THIS SITE.
--- NOTE | 2016-06-25 23:30 | NUR ---
PT MUCH CALMER NOW. SLEEPING .GREGORIO SCALE 4.
[2016-06-26] VITALS (37 sets, daily range): BP systolic 88–148; BP diastolic 45–83; PULSE 49–84; RESP 10–31; TEMP 96.9–98.9; O2SAT 95–99
[2016-06-26] MEDS: LevALBUTEROL HCL 1.25 MG/0.5 ML *CONC.* VIAL.NEB (XOPENEX CONC.) INH SCH ×4 (01:29→19:45)
--- NOTE | 2016-06-26 04:00 | NUR ---
PT RESTING . GETS AGITATED EASILY. LARGE AMTS OF SECRETIONS FROM MOUTH SUCTIONED.
[2016-06-26] MEDS: D5/0.45 NS 1,000 ML IV SCH ×3 (04:12→20:28)
[2016-06-26] MEDS: PANTOPRAZOLE SODIUM 40 MG in NS 50 ML IV SCH ×4 (05:27→19:53)
[2016-06-26] MEDS: methylPREDNISolone SOD SUCC 40 MG/ML VIAL IVP SCH ×4 (05:30→21:50)
[2016-06-26] MEDS: INSULIN REGULAR, HUMAN 100 UNITS/ML, 10 ML VIAL (novoLIN R) SUBCUT PRN ×2 (05:43→11:31)
--- NOTE | 2016-06-26 06:00 | NUR ---
PT VERY RESTLESS . COUGHING AND TRIGGERING THE VENT OFTEN.DIPRIVAN INFUSING @ 30 MCG/KG/MIN.
[2016-06-26] MEDS: PROPOFOL DRIP 100 ML IV PRN ×3 (06:09→22:47)
--- NOTE | 2016-06-26 06:20 | NUR ---
STILL RESTLESS, OPENS EYES TO NAME, KICKING AND MOVING IN BED . COUGHING OFTEN. DIPRIVAN INCREASED TO 35 MCG/KG/MIN.
--- NOTE | 2016-06-26 06:45 | NUR ---
PT CALM NOW.
[2016-06-26 07:00] LABS: HEMATOCRIT 38.6 % (36-54); HEMOGLOBIN 12.8 g/dL (14.0-18.0); MEAN CORPUSCULAR HEMOGLOBIN 30 pg (27-31); MEAN CORPUSCULAR HGB CONC 33 % (32-36); MEAN CORPUSCULAR VOLUME 89 fL (79.0-98.0); PLATELET COUNT (AUTO) 206 K/uL (130-430); RED BLOOD CELL COUNT(AUTO) 4.33 MIL/uL (4.2-6.2)
--- NOTE | 2016-06-26 07:00 | NUR ---
PT CALM. DIPRIVAN 35 MCG/KG/MIN IS EFFECTIVE. REPORT GIVEN TO ON COMING RN.
--- NOTE | 2016-06-26 07:00 | NUR ---
RECEIVED PT COMFORTABLY SEDATED ON DIPRIVAN AT 35MCGS. RESTRAINTS IN PLACE TO PREVENT EXTUBATING HIMSELF. PT HAS A 7.5.ET, 24 CM LIP LINE. VENT SETTINGS AC 10/500/40%. LOTS OF CLEAR ORAL SECRETIONS. LUNGS DIMINISHED BILATERALLY. SMALL AMT OF CLEAR SECRETIONS SUCTIONED FROM ET. HOB UP. PT NPO FOR COLONOSCOPY. OGT IN PLACE AND CLAMPED. ABD DISTENDED WITH HYPOACTIVE BOWEL SOUNDS. PT HAS A 22G IV TO RIGHT WRIST WITH PROTONIX AT 8 MG/HR AND IVF INFUSING AT 60 CC/HR. SR ON MONITOR. VSS. FLEXISEAL IN PLACE WITH BLACK TARRY STOOL. SCROTUM DENUDED. ESCOTO CATH IN PLACE WITH YELLOW URINE IN BAG. WILL CONTINUE TO MONITOR.
[2016-06-26 07:06] LABS: CREATININE 0.8 mg/dL (0.55-1.30); POTASSIUM 4.5 mmol/L (3.5-5.1)
[2016-06-26 07:11] LABS: WHITE BLOOD COUNT (AUTO) 16.5 K/uL (4.8-10.8)
[2016-06-26 07:15] LABS: INR 0.9 (0.80-1.20)
--- NOTE | 2016-06-26 08:30 | NUR ---
SUCTIONED LOTS OF CLEAR ORAL SECRETIONS FROM PTS MOUTH. MODERATE AMOUNT OF SECRETIONS FROM ET.
[2016-06-26] MEDS ORDERED: SIMETHICONE 40 MG/0.6 ML ML ONE (08:41)
[2016-06-26 08:42] LABS: ATYPICAL LYMPHOCYTES % 0 % (0-0); BAND % (MANUAL) 0 % (0-6); BASOPHILS % (MANUAL) 0 % (0-2); EOSINOPHILS % (MANUAL) 0 % (0-7); LYMPHOCYTES % (MANUAL) 4 % (20-46); MONOCYTES % (MANUAL) 5 % (0-11)
[2016-06-26] MEDS ORDERED: fentaNYL CITRATE/PF 100 MCG/2 ML AMP ONE (08:44)
[2016-06-26] MEDS ORDERED: MIDAZOLAM HCL 5 MG/5 ML VIAL ONE (08:44)
--- NOTE | 2016-06-26 09:30 | NUR ---
EGD COMPLETED. GASTRITIS FOUND PER MD. ORDERED TO KEEP PT NPO WHILE HE CONSIDERS A COLONOSCOPY TOMORROW. DIPRIVAN AT 45 MCGS DURING PROCEDURE. NO OTHER SEDATION GIVEN. SR ON MONITOR AND 02 SATS 99% DURING PROCEDURE. HOB UP.
--- NOTE | 2016-06-26 09:46 | NUR ---
FOUND NG COILED IN MOUTH AFTER EGD. PUSHED BACK IN. KUB ORDERED BY DR BEY FOR CONFIRMATION OF PLACEMENT. PT REMAINS SEDATED ON DIPRIVAN AT 45 MCGS.
--- NOTE | 2016-06-26 10:23 | NUR ---
PICC LINE NURSE HERE FOR PICC LINE
[2016-06-26] MEDS: CEFTAZIDIME 1 GM in D5W 50 ML IV SCH ×2 (14:09→21:49)
--- NOTE | 2016-06-26 14:30 | NUR ---
NG TUBE PUSHED IN APPROX 2 INCHES PER CXR TAKEN TODAY.
--- NOTE | 2016-06-26 16:30 | NUR ---
CHG BATH DONE. PARTIAL LINEN CHANGED. PT SUCTIONED AND ORAL CARE DONE. HOB UP.
--- NOTE | 2016-06-26 16:49 | NUR ---
Nutrition F/U Admitting Diagnosis Acute respiratory failure, COPD Past Medical History Asthma Pertinent Medications (modified) protonix IV, solu-medrol, ativan, D50%-syringe, glucose, SSI, propofol, ceftriaxone sodium, morphine, dextrose/NaCl, pantoprazole Na/NCl propofol seen infusing at 18.9 ml/hr (45 mcg/kg/min), which provides approximately 499 kcal/day Current Diet Order Nutren Pulmonary at 30 ml/hr, Prosource daily, Free water flush 200 ml q4h via OGT (x3 days) Height (Feet) 5 feet Height (Inches) 5.00 inches Weight (Pounds) 154 pounds (admission); 158 lb, 72 kg (06/19/16); 157 lb, 71 kg (06/21/16) 157 lb, (06/26/16): 156 lbs Weight (Calculated Kilograms) 69.565993 kilograms Patient Weight 69.853 kg Body Mass Index 25.62 kg/m2 (normal) [place]/Adjusted Body Weight IBW: 136 lb, 62 kg. 113% of IBW Estimated Needs 9114-5613 kcal/day (20-25 kcal/kg CBW for vent support) Grams of Protein per Day 84-140 gm/day (1.2-2 gm/kg CBW for critically ill state) Fluid Intake Goal 1.8-2.1 L/day (25-30 kcal/kg CBW for adult maintenance) Pertinent Labs WBC 16.5 H, Hgb 12.8 L, BUN 30 H, BG 194 H 06/25/16: lactic acid 2.3 H 06/19/16: Mg 2.6 H, Phos 2.5 L Other Subjective Data Physical assessment: pt +intubated, +sedated, +obtunded, w/bilateral soft wrist restraints. TFs not running at time of visit. Per RN, pt had TFs held today for procedures. Reported black stools. Per EMR, abdomen is non-distended, firm, w/ active bowel sounds. Tyrone: 13; posterior buttocks and posterior scrotum: denuded. I/Os (06/26/16): 1166/1080 (+86 ml); 1 BM 06/24/16. Noted pt is getting 653 kcal/day via dextrose from IV fluids. Current TF regimen (with propofol and IVF) is providin kcal, 64 gm protein/day, 1763 ml free water per day. This meets 134% of estimated energy needs and 76% of estimated protein needs per day. Recommend TF regimen: Nutren Pulmonary at 15 ml/hr, Prosource BID, Free Water Flush: 200 q4hr via OGT To provide (with current propofol rate and dextrose via IVF): 1657 kcals, 54 gm protein, 1857 free water per day. This would meet 104% of estimated kcal needs and 104% of estimated protein needs per day. Pt is not appropriate for nutrition education. Follow Up High Risk: F/U in 2-3days
[2016-06-26] MEDS: MORPHINE 2 MG/ML INJ. SYRINGE IVP PRN (16:51)
--- NOTE | 2016-06-26 17:09 | NUR ---
DR ZUNIGAIUM IN TO SEE PT. ORDERS LEFT.
--- NOTE | 2016-06-26 19:15 | NUR ---
DR CARLSON IN TO SEE PT. ORDERS LEFT FOR SIMV TRAIL. REPORT GIVEN TO ONCOMING NURSE. SARAH CURRENTLY AT [address] CARLSON WOULD LIKE STAFF TO USE ATIVAN TO SEDATE PT AND TRY TO WEAN OFF PROPOFOL..
--- NOTE | 2016-06-26 19:41 | NUR ---
PM ASSESSMENT PT RESTING IN BED, SEDATED. PT ON VENT AC 10 TV 500 FIO2 40%. O2 SAT 99%. BREATHING EVEN AND UNLABORED. SINUS RHYTHM ON SALES SUPPORT ENGINEER. PICC LINE NOTED TO RIGHT UPPER ARM DRESSING CLEAN DRY AND INTACT. PERIPHERAL IV 20G TO RIGHT AC AND LEFT WRIST DRESSING CLEAN DRY INTACT. NO SIGNS OF INFECTION OR INFILTRATION TO THESE IV SITES. DIPRIVAN RUNNING @ 30 MCG/KG/MIN. D5 1/2 NS RUNNING @ 60 CC/HR. PROTONIX RUNNING @ 10 CC/HR. OG TUBE IN PLACE CLAMPED AND INTACT. PT HAS BILATERAL SOFT WRIST RESTRAINTS. GOOD SKIN AND CIRCULATION NOTED TO BOTH BILATERAL UPPER EXTREMITIES. ESCOTO CATHETER IN PLACE INTACT. CALL LIGHT WITHIN REACH. BED AT LOWEST POSITION. CONTINUE TO MONITOR. Addendum: 06/26/16 at 2313 by Kyleigh Brumfield RN PM ASSESSMENT PT RESTING IN BED, SEDATED. PT ON VENT AC 10 TV 500 FIO2 40%. O2 SAT 99%. BREATHING EVEN AND UNLABORED. SINUS RHYTHM ON SALES SUPPORT ENGINEER. PICC LINE NOTED TO RIGHT UPPER ARM DRESSING CLEAN DRY AND INTACT. PERIPHERAL IV 20G TO RIGHT AC AND LEFT WRIST DRESSING CLEAN DRY INTACT. NO SIGNS OF INFECTION OR INFILTRATION TO THESE IV SITES. DIPRIVAN RUNNING @ 35 MCG/KG/MIN. D5 1/2 NS RUNNING @ 60 CC/HR. PROTONIX RUNNING @ 10 CC/HR. OG TUBE IN PLACE CLAMPED AND INTACT. PT HAS BILATERAL SOFT WRIST RESTRAINTS. GOOD SKIN AND CIRCULATION NOTED TO BOTH BILATERAL UPPER EXTREMITIES. ESCOTO CATHETER IN PLACE INTACT. CALL LIGHT WITHIN REACH. BED AT LOWEST POSITION. CONTINUE TO MONITOR.
--- NOTE | 2016-06-26 19:45 | NUR ---
VENT CHANGE RESPIRATORY THERAPIST CHANGED VENT SETTING TO SIMV 10 TV 500 FIO2 40% PS 12
[2016-06-26] MEDS: LORazepam 2 MG/ML VIAL IVP PRN (20:27)
[2016-06-27] VITALS (41 sets, daily range): BP systolic 91–162; BP diastolic 45–84; PULSE 52–84; RESP 11–28; TEMP 97.9–99.3; O2SAT 94–100
[2016-06-27] MEDS: LORazepam 2 MG/ML VIAL IVP PRN ×4 (00:28→20:42)
[2016-06-27] MEDS: INSULIN REGULAR, HUMAN 100 UNITS/ML, 10 ML VIAL (novoLIN R) SUBCUT PRN ×2 (00:29→12:34)
[2016-06-27] MEDS: LevALBUTEROL HCL 1.25 MG/0.5 ML *CONC.* VIAL.NEB (XOPENEX CONC.) INH SCH ×4 (00:59→19:54)
[2016-06-27] MEDS: PANTOPRAZOLE SODIUM 40 MG in NS 50 ML IV SCH ×5 (01:01→20:43)
[2016-06-27] MEDS: CEFTAZIDIME 1 GM in D5W 50 ML IV SCH ×3 (05:11→22:46)
[2016-06-27] MEDS: PROPOFOL DRIP 100 ML IV PRN ×3 (05:11→18:04)
--- NOTE | 2016-06-27 06:00 | NUR ---
NO WATER FLUSH DURING JOURNEYMAN LEVEL ACOUSTIC ANALYST DUE TO PT'S NPO
[2016-06-27] MEDS: methylPREDNISolone SOD SUCC 40 MG/ML VIAL IVP SCH ×3 (06:41→22:45)
--- NOTE | 2016-06-27 07:30 | NUR ---
EGD and colonoscopy Pt awake. Pt breathing even and unlabored. Pt denies pain or discomfort. Dr. Rivera and GI optical laboratory technician and RN at the bedside. Pt made aware of EGD and colonoscopy procedure. Consent signed and in the Pt's chart. Will continue to monitor. Addendum: 06/27/16 at 0758 by Shiela Pitts RN Data entered in error. Incorrect patient.
--- NOTE | 2016-06-27 07:32 | NUR ---
GAVE SHIFT REPORT TO ONCOMING NURSE
[2016-06-27] MEDS: MORPHINE 2 MG/ML INJ. SYRINGE IVP PRN ×3 (07:43→14:53)
[2016-06-27] MEDS ORDERED: LORazepam 2 MG/ML VIAL ONE (11:20)
--- NOTE | 2016-06-27 12:21 | NUR ---
Social Service Note: Pt has been referred to social media senior associate by physician; order states pt is homeless. Pt lives at home per records. Pt is known to TANKAGE SUPERVISOR from previous admission; pt has a history of drug use. Pt is currently intubated and on the ventilator since admission; pt is unable to participate in social service assessment; TANKAGE SUPERVISOR will continue to remain available for support and will follow up with pt once able to participate. Pt's sister-Bethany ([phone]).
[2016-06-27] MEDS: D5/0.45 NS 1,000 ML IV SCH (12:33)
--- NOTE | 2016-06-27 12:44 | NUR ---
MD rounds Pt awake and lethargic. Pt noted tossing in bed and kicking BLE. Reposition Pt for comfort measures. Diprivan currently infusing @ 30 mcg/Kg/min. Dr. Morales at the bedside discussing plan of care. New orders acknowledge, and noted. Pt tolerating vent settings. HOB elevated 45 degree angle, call light within easy reach, bed at lowest position, will continue to monitor.
--- NOTE | 2016-06-27 14:55 | NUR ---
Agitation and restlessness Pt awake. Pt noted kicking BLE and tossing and turning in bed. Reposition Pt for comfort measures and administered Morphine and Ativan medication as ordered for pain and agitation. Diprivan currently infusing. R 43, HR 99, O2 sat 95%. Pt currently tolerating vent setting. HOB elevating 45 degree angle, call light within easy reach, bed at lowest position, will continue to monitor.
--- NOTE | 2016-06-27 16:00 | NUR ---
CHG bath given, skin care and linen care provided. Pt tolerated care. HOB elevated 45 degree angle, call light within easy reach, bed at lowest position, will continue to monitor.
--- NOTE | 2016-06-27 18:30 | NUR ---
Spoke with Dr. Rivera. stated he will perform colonoscopy tomorrow. New orders received, read back and noted.
[2016-06-27] MEDS ORDERED: BISACODYL 10 MG/SUPPOSITORY RC ONE (18:45)
[2016-06-27] MEDS ORDERED: GOLYTELY / COLYTE SOLUTION 4 LITERS NG ONE (18:45)
--- NOTE | 2016-06-27 19:30 | NUR ---
Closing notes Pt awake and noted tossing and kicking BLE. Reposition Pt for comfort measures. Dr. Rapp at the bedside discussing plan of care. New orders acknowledge and noted. Diprivan currently infusing at 25mcg/kg/min, Protonix @ 10mL/hr, IVF @ 60mL/hr. Bilateral wrist restraints still in placed for safety measures. Call light within easy reach, bed at lowest position, will endorse oncoming RN to follow up with all orders from Dr. Rivera and Dr. Rapp.
--- NOTE | 2016-06-27 20:00 | NUR ---
Received patient from day shift. orally intubated to vent at simv 6, tv= 500, fio2= 40%, PS= 12. saturation 98%. Sedated with diprivan at 25 mcg/kg/min. maintain RASS= 4. To start Golytely via OGT as bowel prep for colonoscopy in am. Flexiseal rectal tube has small black colored liquid stool. tube feeding is off for now. IVF D5 1/2 NS at 60 ml/hr to rt upper arm PICC line. Mclaughlin cath urine output drains 100 to 200 ml/hr. Patient appears subdued . Ativan 1 mg ivp also given, then titrate down diprivan as tolerated. C/L= coarse rhonchii to both lung field. No apparent dyspnea noted. HOB at 30 degree angle, turn q 2 hours and oral care q 2 hours. full code status. close watch for cardio- resp distress.
[2016-06-27] MEDS: chlordiazePOXIDE HCL 25 MG CAPSULE PO SCH (20:39)
[2016-06-28] VITALS (30 sets, daily range): BP systolic 91–170; BP diastolic 42–110; PULSE 5–104; RESP 13–42; TEMP 98.1–99.8; O2SAT 93–100
[2016-06-28] MEDS: LevALBUTEROL HCL 1.25 MG/0.5 ML *CONC.* VIAL.NEB (XOPENEX CONC.) INH SCH ×4 (01:19→19:27)
[2016-06-28] MEDS: LORazepam 2 MG/ML VIAL IVP PRN ×2 (01:32→21:36)
[2016-06-28] MEDS: methylPREDNISolone SOD SUCC 40 MG/ML VIAL IVP SCH ×3 (05:45→21:38)
[2016-06-28] MEDS: CEFTAZIDIME 1 GM in D5W 50 ML IV SCH ×3 (05:46→21:36)
[2016-06-28] MEDS: PANTOPRAZOLE SODIUM 40 MG in NS 50 ML IV SCH ×5 (05:48→21:36)
--- NOTE | 2016-06-28 06:00 | NUR ---
patient had been subdued overnight with diprivan drip and ativan 1 mg iv prn. tolerated golytely with clean return upon water enema. Had a complete bedbath, pericare, back care. applies z guard to perineum. tolerated turning side to side q 2 hours. no episode of cardio- resp distress. blood sugar this am = 110. apparently stable but guarded. Bowel prep for colonoscopy was completed. endorse to am stevie.
[2016-06-28] MEDS ORDERED: fentaNYL CITRATE/PF 100 MCG/2 ML AMP ONE (07:35)
[2016-06-28] MEDS ORDERED: MIDAZOLAM HCL 5 MG/5 ML VIAL ONE (07:36)
[2016-06-28] MEDS ORDERED: SIMETHICONE 40 MG/0.6 ML ML ONE (07:36)
[2016-06-28] MEDS: chlordiazePOXIDE HCL 25 MG CAPSULE PO SCH ×3 (09:04→21:00)
[2016-06-28] MEDS: D5/0.45 NS 1,000 ML IV SCH (09:08)
--- NOTE | 2016-06-28 09:30 | NUR ---
Dr. Brayan salguero. Currently awaiting returned phone call.
[2016-06-28 09:57] LABS: ABG TOTAL HEMOGLOBIN 13.4 G/dL (12.0-18.0); BLOOD GAS BASE EXCESS 6.9 mmol/L (-3.0-3.0); BLOOD GAS PH 7.415 (7.350-7.450); BLOOD O2Hb% 93.1 % (94.0-97.0)
[2016-06-28 09:58] LABS: BLOOD GAS COHb% 0.3 % (0.5-1.5)
--- NOTE | 2016-06-28 10:55 | NUR ---
MD rounds Pt asleep. Pt easily aroused by light stimuli and voice. Dr. Morales at the bedside discussing plan of care. New orders acknowledge and noted. Pt tolerating vent settings. HOB elevated 45 degree angle, call light within easy reach, bed at lowest position, will continue to monitor.
[2016-06-28] MEDS: INSULIN REGULAR, HUMAN 100 UNITS/ML, 10 ML VIAL (novoLIN R) SUBCUT PRN ×2 (12:03→19:30)
--- NOTE | 2016-06-28 14:08 | NUR ---
RT NOTES Took pt. off the vent and placed on 40% tpiece trial per Dr Schmidt's order. Pt. is more awake, educated on tpiece trial, when asked if he understood, pt appears to nod. No immediate adverse reactions noted. Pt. was observed for about 3 and re-assessed after 8 minutes and shows no signs of respiratory distress. H.R. remains in the 80s and R.R. in the low to mid 20s. SPO2 97-98%. Will cont. to monitor pt.
--- NOTE | 2016-06-28 16:13 | NUR ---
Extubate Spoke with Dr. Schmidt. made aware of ABG's result. New orders to extubate Pt. RT at the bedside preforming extubation. Pt tolerated extubation. O2 sat 98% via 40% cool aerosol. Will continue to monitor.
--- NOTE | 2016-06-28 16:15 | NUR ---
RT NOTE PATIENT EXTUBATED AT THIS TIME AND PLACED ON 40% COOL AEROSOL MASK PER MD ORDER, NO ADVERSE REACTION NOTED, RN AT BEDSIDE, SAT 99% , RR 22 AND HR 87 RECORDED ON THE AEROSOL MASK.
--- NOTE | 2016-06-28 16:25 | NUR ---
RT NOTES Pt. cont. to tolerate 40% cool aerosol. No respiratory distress noted. H.R 93 R.R 16 SPO2 98%
--- NOTE | 2016-06-28 16:29 | NUR ---
TYRONE SCALE EVALUATION: Patient evaluated for a low Tyrone score of 13. Patient was awake, alert, oriented and received in a Johnny bed with a mattress. Patient is unable to turn independently. Skin is fair (-); Buttocks and Sacral areas have erythema from IAD. Recommend reposition patient side to side only every 2 hours with pillow support and off-load pressure areas with pillows for pressure re-distribution. Elevate, off-load and float bilateral heels with pillows. Use moisture barrier cream on buttocks and other moisture susceptible areas QID and as needed for soiling. Perform skin care and monitor skin integrity Q shift. Place patient on a low air-loss mattress.
--- NOTE | 2016-06-28 17:15 | NUR ---
RT NOTES Pt. cont. to tolerate cool aerosol. No respiratory distress noted.
[2016-06-28 17:48] LABS: BLOOD GAS BASE EXCESS 8.3 mmol/L (-3.0-3.0); BLOOD GAS COHb% 0.1 % (0.5-1.5); BLOOD GAS HHB 1.5 % (0.0-6.0); BLOOD GAS PH 7.464 (7.350-7.450); BLOOD O2Hb% 97.9 % (94.0-97.0)
--- NOTE | 2016-06-28 21:15 | NUR ---
DR. ACRLSON NOTIFIED DR. CARLSON OF PT AGITATION, ORDERS RECEIVED, WILL CARRY OUT.
[2016-06-28] MEDS: hydrALAZINE HCL 20 MG/ML VIAL IVP PRN (21:39)
--- NOTE | 2016-06-28 21:52 | NUR ---
BP AND AGITATED HIGH BP AND AGITATED, HYDRALAZINE, ATIVAN GIVEN, PT TOLERATING WELL, WILL REASSESS SHORTLY. RESTRAINTS IN PLACE W/ GOOD CIRCULATION. WILL CONTINUE TO MONITOR.
--- NOTE | 2016-06-28 22:00 | NUR ---
NASAL CANULA RT CHANGED MASK TO NASAL CANULA. PT TOLERATING WELL. Addendum: 06/29/16 at 0654 by Dilcia Bryant RN CHANGE TIME TO 199906/28/16
[2016-06-29] VITALS (25 sets, daily range): BP systolic 96–180; BP diastolic 56–106; PULSE 64–112; RESP 14–28; TEMP 98.4–99.9; O2SAT 94–99
[2016-06-29] MEDS: D5/0.45 NS 1,000 ML IV SCH (00:44)
[2016-06-29] MEDS: LevALBUTEROL HCL 1.25 MG/0.5 ML *CONC.* VIAL.NEB (XOPENEX CONC.) INH SCH ×4 (00:51→20:08)
[2016-06-29] MEDS: LORazepam 2 MG/ML VIAL IVP PRN ×5 (01:37→19:50)
--- NOTE | 2016-06-29 01:40 | NUR ---
AGITATED PT AGITATED, ATIVAN GIVEN. WILL CONTINUE TO MONITOR.
[2016-06-29] MEDS: PANTOPRAZOLE SODIUM 40 MG in NS 50 ML IV SCH ×5 (03:18→22:39)
--- NOTE | 2016-06-29 03:30 | NUR ---
AGITATED PT AGITATED, REORIENTED BUT PT STILL AGITATED. WILL CONTINUE TO MONITOR.
[2016-06-29] MEDS: methylPREDNISolone SOD SUCC 40 MG/ML VIAL IVP SCH ×3 (05:29→20:49)
[2016-06-29] MEDS: CEFTAZIDIME 1 GM in D5W 50 ML IV SCH ×3 (05:30→21:30)
--- NOTE | 2016-06-29 05:40 | NUR ---
AGITATED PT AGITATED, ATIVAN GIVEN, WILL CONTINUE TO MONITOR.
[2016-06-29 06:25] LABS: BASOPHILS % (AUTO) 0.1 % (0.0-2.0); HEMATOCRIT 39.9 % (36-54); HEMOGLOBIN 13.4 g/dL (14.0-18.0); LYMPHOCYTES # (AUTO) 0.7 K/uL (1.0-5.5); LYMPHOCYTES % (AUTO) 2.9 % (20.5-51.5); MEAN CORPUSCULAR HEMOGLOBIN 30 pg (27-31); MEAN CORPUSCULAR HGB CONC 34 % (32-36); MEAN CORPUSCULAR VOLUME 89 fL (79.0-98.0); NEUTROPHILS # (AUTO) 23.4 K/uL (1.8-7.7); PLATELET COUNT (AUTO) 269 K/uL (130-430); RED BLOOD CELL COUNT(AUTO) 4.51 MIL/uL (4.2-6.2); WHITE BLOOD COUNT (AUTO) 25.1 K/uL (4.8-10.8)
[2016-06-29 06:40] LABS: CALCIUM 8.5 mg/dL (8.4-11.0); CREATININE 0.83 mg/dL (0.55-1.30); POTASSIUM 3.8 mmol/L (3.5-5.1)
--- NOTE | 2016-06-29 07:42 | NUR ---
CLOSING ALL NEEDS MET. ENDORSED CARE TO DAY NURSE MIR PEREZ.
--- NOTE | 2016-06-29 08:40 | NUR ---
ELEVATED BLOOD PRESSURE: PATIENT BP 167/93, PULSE 97, APRESOLINE 10 MG IVP ADMINISTERED.PATIENT STILL AGITATED. ANTIANXIETY MEDS NOT AVAIL YET. PRN FOR Q4 HRS. WILL MONITOR.
[2016-06-29] MEDS: hydrALAZINE HCL 20 MG/ML VIAL IVP PRN ×2 (08:43→15:30)
[2016-06-29] MEDS: chlordiazePOXIDE HCL 25 MG CAPSULE PO SCH ×3 (08:43→20:50)
--- NOTE | 2016-06-29 09:30 | NUR ---
AGITATION. PATIENT KEEP ON KICKING AND TRIED TO PULL TUBES. ATIVAN O.5 MG IVP ADMINISTERED. UNABLE TO EDUCATE PT D/T COGNITIVE.HR 105, PULSE 121/89. WILL MONITOR.
--- NOTE | 2016-06-29 09:45 | NUR ---
ABDOMINAL XRAY DONE.
[2016-06-29] MEDS ORDERED: GASTROGRAFIN 120 ML ONE (10:00)
--- NOTE | 2016-06-29 10:56 | NUR ---
Notes: patient unable to drink Gastro graffin. pt. NPO. MD pedraza made aware. new order received. rescheduled for tomorrow after swallow eval done.
--- NOTE | 2016-06-29 11:25 | NUR ---
INFECTIOUS DISEASE CONSULT: SEEN BY DR. MCGHEE INFORMED ABOUT THE WBC ELEVATED. NEW ORDER RECEIVED.
--- NOTE | 2016-06-29 12:00 | NUR ---
NOTES: PATIENT TEMPERATURE 100.1F, COOLING MEASURE DONE. PT HAS STANDARD ORDER FOR TYLENOL 650MG PO. PT NPO. JOSI COLORADO AWAITED TO CALLBACK.
[2016-06-29] MEDS: INSULIN REGULAR, HUMAN 100 UNITS/ML, 10 ML VIAL (novoLIN R) SUBCUT PRN ×2 (12:08→17:30)
--- NOTE | 2016-06-29 13:07 | NUR ---
RECHECK TEMPERATURE 99.8F, CHG BATH, ORAL CARE, ESCOTO CATH CARE DONE. TURN AND REPOSITION. PULSE 98.WILL MONITOR.
[2016-06-29] MEDS: metroNIDAZOLE 250 mg/NS 50 ML IV SCH ×2 (13:16→21:30)
--- NOTE | 2016-06-29 15:00 | NUR ---
FOLLOW UP SPEECH THERAPIES CONSULT. FOR SWALLOW EVALUATION,(YURY) STATED WILL SEE PATIENT TOMORROW 06/30/16.
--- NOTE | 2016-06-29 15:03 | NUR ---
Nutrition F/U Admitting Diagnosis (modified) Acute respiratory failure, COPD, sepsis w/leukocytosis and lactic acidemia, pseudomonas PNA Past Medical History Asthma, drug abuse Pertinent Medications (modified) protonix IV, solu-medrol IV, ativan, D50%-syringe, glucose, SSI, metronidazole, ceftriaxone sodium, morphine, dextrose/NaCl, pantoprazole Na/NCl Current Diet Order Nutren Pulmonary at 40 ml/hr, Free water flush 200 ml q4h via OGT (x1 day) Height (Feet) 5 feet Height (Inches) 5.00 inches Weight (Pounds) 154 pounds (admission) 158 lb, 72 kg (06/19/16) 157 lb, 71 kg (06/21/16) 157 lb, 71 kg (06/26/16) 151 lb, 69 kg (06/29/16) Weight (Calculated Kilograms) 69.449944 kilograms Patient Weight 69.853 kg Body Mass Index 25.3 kg/m2 (normal) [place]/Adjusted Body Weight IBW: 136 lb, 62 kg. 113% of IBW Estimated Needs (modified) 5105-1036 kcal/day (30-35 kcal/kg CBW for sepsis) Grams of Protein per Day (modified) 104-138 gm/day (1.5-2 gm/kg CBW for sepsis) Fluid Intake Goal 1.8-2.1 L/day (25-30 kcal/kg CBW for adult maintenance) Pertinent Labs WBC 25.1, Hgb 13.4 L, BG 134 H, POC BG 130 H,BUN 16 WNL (improved) 06/25/16: lactic acid 2.3 H 06/19/16: Mg 2.6 H, Phos 2.5 L Other Subjective Data Physical: Pt seen laying in bed, in altered mental state with bilateral wrist restraints. Bedscale wt: 151 lb, c/w previous weights. Pt is extubated, no longer sedated. GI Integrity: Abdomen is soft and non-distended with active bowel sounds. Pt previously had rectal tube, 1300 ml stool recorded 06/28. Tube Feeding: Feedings were held at time of visit d/t upcoming procedures. Current regimen of Nutren Pulmonary at 40 ml/hr, Free water flush 200 ml q4h via NGT provides 1140 kcal, 65 gm protein, and 1951 ml of free water per day. This meets 71% of low end of estimated calorie needs and 63% of low end of estimated protein needs. Integumentary: 06/29/16 Tyrone score 13, excoriations to posterior buttocks and posterior scrotum. Plans/Procedures: Pending small bowel follow through. Pending swallow evaluation. Pt is s/p EGD and colonoscopy. Colonoscopy findings: diverticulosis, internal hemorrhoids. Pt was extubed 06/28. Pt is not currently receiving optimum nutrition. Pt is not appropriate for nutrition education. Problem, Etiology, Signs/Symptoms (modified) Inadequate nutritional needs related to critically ill state as evidenced by current tube feeding regimen meeting 52% of estimated caloric needs and 39% of lower end of estimated protein needs. *ongoing Expected Outcomes or Goals 1. Monitor advancement of diet with goal of meeting at least 50% of estimated needs with acceptable tolerance 2. Labs trending within normal limits 3. Improved skin integrity 4. Improved GI function 5. Weight maintenance Dietitian Recommendations * Recommend TF regimen: Nutren Pulmonary at 50 ml/hr, Prosource BID, Free Water Flush: 200 q4hr via NGT To provide: 1920 kcal, 112 gm protein, 2138 ml free water per day. This would meet 95% of low end of estimated kcal needs and 108% of low end of estimated protein needs per day. * Monitor advancement of diet per ST following swallow evaluation Follow Up High Risk: F/U in 2-3days Addendum: 06/29/16 at [address] CORRECTIONS: Estimated Needs (modified) 6036-6858 kcal/day (30-35 kcal/kg CBW for sepsis) Grams of Protein per Day (modified) 105-140 gm/day (1.5-2 gm/kg CBW for sepsis) Current regimen of Nutren Pulmonary at 40 ml/hr, Free water flush 200 ml q4h via NGT provides 1440 kcal, 65 gm protein, and 1951 ml of free water per day. This meets 69% of low end of estimated calorie needs and 62% of low end of estimated protein needs. Dietitian Recommendations * Recommend Nutren Pulmonary at 50 ml/hr, Prosource BID, Free Water Flush: 200 q4hr via NGT Provides: 1920 kcal, 112 gm protein, 2138 ml free water per day Meets: 95% of low end of estimated kcal needs and 108% of low end of estimated protein needs per day * Consider advancement of diet per ST following swallow evaluation RD reviewed/approved geotechnical intern's note. DEBBIE MARINA Addendum: 06/30/16 at [address] Per primary RN, pt did not pass swallow eval this morning, and new NGT will be placed as per Dr. Mg. has not yet signed RD rec note in hard chart.
[2016-06-29] MEDS: MORPHINE 2 MG/ML INJ. SYRINGE IVP PRN (15:55)
[2016-06-29] MEDS ORDERED: ACETAMINOPHEN 650 MG SUPP.RECT RC PRN (16:45)
[2016-06-29] MEDS ORDERED: HALOPERIDOL LACTATE 5 MG/ML VIAL IM ONE (16:45)
--- NOTE | 2016-06-29 16:45 | NUR ---
MD ROUNDS: SEEN BY DR. COLORADO INFORMED ABOUT PATIENT CONDITION. NEW ORDER RECEIVED.
--- NOTE | 2016-06-29 17:53 | NUR ---
NOTES: 1721 PATIENT VERY AGITATED, CRYING. KICKING.HALDOL 3MG IM ADMINISTERED AT LEFT DELTOID PER MD COLORADO ORDERED. 1750 PATIENT RESTING. NO S/S OF DISTRESS. ALL NEEDS RENDERED. IVF AND PROTONIX DRIP INFUSING WELL. PICC LINE AT HELDER PATENT, WITH GOOD BLOOD RETURN.BRUISES AT THE SITE.ESCOTO CATHETER DRAINING WELL VIA GRAVITY. SIDE RAIL UP AND COLT SOFT RESTRAINT ON. WILL MONITOR.
--- NOTE | 2016-06-29 18:08 | NUR ---
[place] of Care Received report from Selina PEREZ. Pt is sleeping. Bilateral soft wrist restraints in place for safety. Bed locked in lowest position. Will continue to monitor.
--- NOTE | 2016-06-29 19:28 | NUR ---
Endorsement Endorsed plan of care to Hipolito RN via SBAR tool and bedside round.
--- NOTE | 2016-06-29 19:45 | NUR ---
Beginning of shift assessment Pt lying in bed agitated, restless, pt lying sideways in bed kicking legs and putting arm in between siderail. BP increased 141/75, HR increased 100. Unable to orient pt. Will medicate w Ativan per Md order and continue to monitor. Pt on O2 @ 3 lm via N/C, tolerating well. SPO2 97%, no s/s of respiratory distress. HELDER PICC infusing Protonix and IVF, no s/s of infiltration or infection. Site patent, dressing clean/dry/intact. Mclaughlin catheter draining dark yellow urine to gravity, drainage bag placed below bladder level. Bilateral wrist restraints in place. Call light within reach, bed in low position for safety, will continue to monitor.
--- NOTE | 2016-06-29 20:01 | NUR ---
Resting Ativan effective. Pt resting, extremities relaxed, no longer agitated. BP 110/58, HR 75.
[2016-06-30] VITALS (23 sets, daily range): BP systolic 92–154; BP diastolic 45–98; PULSE 52–110; RESP 15–24; TEMP 97.8–98.7; O2SAT 92–100
--- NOTE | 2016-06-30 00:31 | NUR ---
Pt rounds No acute changes in condition noted at this time. Respirations even and unlabored. Tolerating N/C @ 3 lm well. Repositioned pt for comfort, feet elevated on pillows to float heels. Will continue to monitor pt.
[2016-06-30] MEDS: LevALBUTEROL HCL 1.25 MG/0.5 ML *CONC.* VIAL.NEB (XOPENEX CONC.) INH SCH ×4 (01:59→19:54)
[2016-06-30] MEDS: PANTOPRAZOLE SODIUM 40 MG in NS 50 ML IV SCH ×4 (04:11→20:29)
[2016-06-30] MEDS: CEFTAZIDIME 1 GM in D5W 50 ML IV SCH ×3 (05:27→23:05)
[2016-06-30] MEDS: metroNIDAZOLE 250 mg/NS 50 ML IV SCH ×3 (05:27→23:05)
[2016-06-30] MEDS: INSULIN REGULAR, HUMAN 100 UNITS/ML, 10 ML VIAL (novoLIN R) SUBCUT PRN ×2 (05:34→12:48)
[2016-06-30 06:08] LABS: BASOPHILS # (AUTO) 0.2 K/uL (0.0-0.2); BASOPHILS % (AUTO) 1.3 % (0.0-2.0); HEMATOCRIT 35.6 % (36-54); HEMOGLOBIN 11.5 g/dL (14.0-18.0); LYMPHOCYTES # (AUTO) 0.6 K/uL (1.0-5.5); MEAN CORPUSCULAR HEMOGLOBIN 28 pg (27-31); MEAN CORPUSCULAR HGB CONC 32 % (32-36); MEAN CORPUSCULAR VOLUME 88 fL (79.0-98.0); MONOCYTES # (AUTO) 0.6 K/uL (0.0-1.0); NEUTROPHILS # (AUTO) 13.8 K/uL (1.8-7.7); NEUTROPHILS % (AUTO) 90.7 % (40.0-70.0); PLATELET COUNT (AUTO) 227 K/uL (130-430); RED BLOOD CELL COUNT(AUTO) 4.05 MIL/uL (4.2-6.2); RED CELL DISTRIBUTION WIDTH 12.2 % (9.0-15.0); WHITE BLOOD COUNT (AUTO) 15.2 K/uL (4.8-10.8)
[2016-06-30 06:11] LABS: CALCIUM 7.8 mg/dL (8.4-11.0); CREATININE 0.61 mg/dL (0.55-1.30); PHOSPHORUS 3.9 mg/dL (2.7-4.5); POTASSIUM 3.9 mmol/L (3.5-5.1)
--- NOTE | 2016-06-30 07:07 | NUR ---
End of shift report Endorsed pt care and SBAR to ANA Rivers.
--- NOTE | 2016-06-30 07:30 | NUR ---
AM Assessment Received pt drowsy/lethargic, unable to follow commands, responsive to tactile stimuli. No SOB or signs of distress noted. Respirations even and unlabored on 3L via NC. Skin warm and dry. PICC in HELDER intact, patent with D5 1/2 NS at 60 ml/hr and protonix 8 mg/hr. Excoriation noted in sheldon area, bruises noted on upper extremities. Bilateral soft wrist restraints in place for safety, no skin breakdown noted, pulses present. Mclaughlin catheter in place draining shahnaz urine. Heart sounds regular, sinus bradycardia on monitor, HR 55. Adventitious lung sounds. Abdomen soft and nontender. SCDs in place, heels elevated with pillow will continue to monitor.
--- NOTE | 2016-06-30 07:58 | NUR ---
S.T. SWALLOW EVAL COMPLETED. PT PRESENTS W/ SEV OROPHARYNGEAL DYSPHAGIA W/ P.O. 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 PT IS AT RISK FOR ASPIRATION, MALNUTRITION, AND DEHYDRATION. REC: NPO - ALTERNATIVE METHOD FOR FEEDING. NURSE JOSIANE NOTIFIED. G8996 CM G8997 CM G8998 CM NOMS LEVEL 2 Addendum: 06/30/16 at 0800 by Alicia DAI RECEIVED REFERRAL FOR THIS ORDER YESTERDAY PM.
--- NOTE | 2016-06-30 08:00 | NUR ---
Swallow Carie Speech therapist, Kayleen, at bedside. Pt only licked lips but was unable to swallow and unable to follow commands. Per Kayleen, "Keep pt NPO." Will continue with plan of care. Addendum: 06/30/16 at 1007 by Tita Miramontes RN Correction: Alicia speech therapist, not Kayleen.
[2016-06-30] MEDS: chlordiazePOXIDE HCL 25 MG CAPSULE PO SCH ×3 (08:51→20:41)
[2016-06-30] MEDS: methylPREDNISolone SOD SUCC 40 MG/ML VIAL IVP SCH ×2 (08:56→20:41)
[2016-06-30] MEDS: D5/0.45 NS 1,000 ML IV SCH ×2 (08:57→12:43)
--- NOTE | 2016-06-30 10:01 | NUR ---
Dr. Mg in to see pt.
--- NOTE | 2016-06-30 10:38 | NUR ---
DISCHARGE PLANNING Spoke with Rossy who was requested by to have patient evaluated. Rossy evaluated patient and patient meets criteria. Rossy was provided with ZHAO Deleon [phone] Ext:[phone] with [facility] for insurance auth. Rossy will return call to [facility] with insurance decision to auth LTAC. Will follow up. Addendum: 06/30/16 at 1436 by Brandie Hubbard DP Placed transportation packet with CD in nurse station. Pending insurance auth and discharge order for bed assignment. Addendum: 06/30/16 at 1652 by Brandie Hubbard DP DC order to [facility]. Spoke with Rossy who is working on insurance auth and will call nurses station with bed assignment.
--- NOTE | 2016-06-30 11:04 | NUR ---
Hygiene/Patient Update CHG bath given, no BM noted. Applied z-guard to excoriated perineal area. Pt is more arousable and able to answer questions, still noted confusion and drowsiness. Denies any pain or discomfort at this time. Will continue to monitor.
[2016-06-30] MEDS ORDERED: GASTROGRAFIN 120 ML ONE (13:50)
--- NOTE | 2016-06-30 14:09 | NUR ---
Patient Update Pt is more alert, asking questions, and states he is hungry. Placed dentures and administered ice chips. Pt tolerating well. Pt also able to follow commands for a short period of time but is still confused. Pt prepped for small bowel follow through. Will continue to monitor.
--- NOTE | 2016-06-30 14:18 | NUR ---
DC planning: Requested LTAC transfer order from Dr. Morales as pt accepted to LTAC per rony Diego event planner. Per Dr. Morales, he will give transfer order. MATEO PEREZ
--- NOTE | 2016-06-30 15:46 | NUR ---
DC PLANNING: CALLED AND S/W ZHAO SERRANO FROM [facility] TEL# [phone] EXT [phone]; FAX# [phone], EXPLAINED TO HIM THE NEED OF A BUSINESS ENGLISH INSTRUCTOR ACUTE CARE-CONCEPCION FOR THE PATIENT. HE REQUESTED THE DISCHARGE ORDER TO BE FAX TO PA. FAXED DC ORDER, HE WILL GIVE ME A CALL OF KATE. TO F/U.
[2016-06-30] MEDS: MORPHINE 2 MG/ML INJ. SYRINGE IVP PRN (17:58)
--- NOTE | 2016-06-30 19:29 | NUR ---
Closing/Endorsement Pt restless in bed, confused, verbally responsive. Pt had 180 ml of juice and states he is "not hungry," but "thirsty." Pt has only been able to follow commands for a short period of time requiring frequent orientation. Pt has also been moving a lot in bed and noted to place legs over side rail. Bilateral wrist restraints in place for safety, no skin break down noted. Pt had loose BM x3 during shift. Performed skin and wound care, photograph taken and placed in chart, pt also seen by Bruce PEREZ for wound care. Endorsed plan of care to Pallavi PEREZ via SBAR and bedside round.
[2016-06-30] MEDS: LORazepam 2 MG/ML VIAL IVP PRN (19:45)
--- NOTE | 2016-06-30 20:00 | NUR ---
Received pt awake and confused. Does not follow commands. Pt continues to move in bed. Bilateral soft wrist restraints in place. Right upper arm PICC in place, both ports patent and intact when flushed. Mclaughlin catheter with securement device in place. ST on tele. Afebrile. O23L via nasal cannula. Bilateral SCDs on. Head of bed elevated. Will continue to monitor.
--- NOTE | 2016-06-30 21:00 | NUR ---
Pt pulled PICC line out. Inserted 20g PIV to right wrist. Will continue to monitor.
--- NOTE | 2016-06-30 22:45 | NUR ---
Pt transferred to [facility]. Sitter at bedside. Inserted a left wrist 20g, patent and intact. Endorsed care to ANA Danielson.
--- NOTE | 2016-06-30 22:50 | NUR ---
Patient transferred from ICU A/O x 1, confused, agitated, no SOB, no chest pain, no painful facial expression. Skin warm to touch, IV #20 at R hand, continue D5 1/2 NS at 100 ml/hr. Clear lung sounds with positive bowel sounds. F/C in place. Restraint both wrists, +2 radial pulses palpated, no injury at restraint sites, sitter at bedside, SCD in place, call light within reach, will continue to monitor patient.
--- NOTE | 2016-07-01 | NUR ---
Round A/O x 1, confused, mild agitated, no SOB, no chest pain, no painful facial expression. Skin warm to touch, IV #20 at R hand, and @ 20 at L wrist. Both patent and free of infection or infiltration. Continue D5 1/2 NS at 100 ml/hr to R hand and Protonix drip to the L wrist. F/C in place, clear shahnaz urine in the bag Restraint both wrists, released for 15 min, +2 radial pulses palpated, no injury at restraint sites, sitter at bedside, SCD in place, call light within reach, will continue to monitor patient.
[2016-07-01] MEDS: LevALBUTEROL HCL 1.25 MG/0.5 ML *CONC.* VIAL.NEB (XOPENEX CONC.) INH SCH ×4 (01:09→20:03)
[2016-07-01] MEDS: LORazepam 2 MG/ML VIAL IVP PRN ×3 (01:21→20:09)
[2016-07-01] MEDS: INSULIN REGULAR, HUMAN 100 UNITS/ML, 10 ML VIAL (novoLIN R) SUBCUT PRN ×3 (01:25→12:20)
--- NOTE | 2016-07-01 02:00 | NUR ---
Round and IV start A/O x 1, confused, calm at this time, no SOB, no chest pain, no painful facial expression. Skin warm to touch, IV #20 at R hand infiltrated, started a new IV at L AC with #20, with good blood return. DC Old IV , IV cath intact. Patient tolerated well. Another IV access #20 at L wrist patent. Continue D5 1/2 NS at 100 ml/hr to L wrist and Protonix drip to the L AC. F/C in place, clear shahnaz urine in the bag Restraint both wrists, released for 15 min, +2 radial pulses palpated, no injury at restraint sites, sitter at bedside, SCD in place, call light within reach, will continue to monitor patient.
--- NOTE | 2016-07-01 04:00 | NUR ---
Round A/O x 1, confused, sleeping/resting at this time, no SOB, no chest pain, no painful facial expression. Skin warm to touch, 2 IVs, one is at L hand #20 for D5 1/2 NS running at 100 ml/hr. Another IV at L AC #20, running Protonix drip @ 10 ml/hr. Both IV patent and free of infection or infiltration. F/C in place, clear shahnaz urine in the bag Restraint both wrists, released for 15 min, +2 radial pulses palpated, no injury at restraint sites, sitter at bedside, SCD in place, call light within reach, will continue to monitor patient.
[2016-07-01] MEDS: CEFTAZIDIME 1 GM in D5W 50 ML IV SCH ×3 (05:13→22:11)
[2016-07-01] MEDS: PANTOPRAZOLE SODIUM 40 MG in NS 50 ML IV SCH ×6 (05:21→20:10)
--- NOTE | 2016-07-01 06:00 | NUR ---
Closing note A/O x 1, confused, calm and resting at this time, no SOB, no chest pain, no painful facial expression. Skin warm to touch, 2 IVs, one is at L hand #20 for D5 1/2 NS running at 100 ml/hr. Another IV at L AC #20, running Protonix drip @ 10 ml/hr. Both IV patent and free of infection or infiltration. F/C in place, clear shahnaz urine in the bag Restraint both wrists, released for 15 min, +2 radial pulses palpated, no injury at restraint sites, sitter at bedside, SCD in place, call light within reach, will continue to monitor patient.
[2016-07-01] MEDS: D5/0.45 NS 1,000 ML IV SCH ×2 (06:40→20:11)
[2016-07-01] MEDS: metroNIDAZOLE 250 mg/NS 50 ML IV SCH ×3 (06:51→22:12)
--- NOTE | 2016-07-01 07:20 | NUR ---
NRSG: RECEIVED PATIENT FROM NIGHT NURSE RN, RESTLESS AND MOVING AROUND THE BED ,AWAKE, AND TRYING TO GET OUT FROM BED AND PLACING LEG OVER BED. KEPT COMFORTABLE AND INSTRUCTED TO CALM DOWN ,JUST FOR FEW MINUTES AND STARTED TO RESTLESS AGAIN. RESPIRATION EVEN AND UNLABORED. ON ROOM AIR AND O2 SAT. 94%. LUNGS CLEAR AND DECREASED ON THE BASES. HAD 2 IV SITE ON THE LEFT ANTECUBITAL AND ON THE LEFT HAND INTACT AND INPLACED AND IVF INFUSING WELL , NO S/S OF INFILTRATION. SOFT WRIST RESTRAINT ON BILATERAL . BOTH SIDERAILS UP AND SITTER AT THE BEDSIDE . CALL LIGHT WITHIN REACH. ESCOTO CATH INTACT AND INPLACED DRAINING YELLOW URINE. SCD ON AND ABLE TO REMOVED IT. REDNESS ON RESTAL AREA. AND SKIN BARRIER APPLIED. SITTER AT THE BEDSIDE AT ALL TIMES.
[2016-07-01 08:00] VITALS: BP 147/74; PULSE 81; RESP 20; TEMP 98.2; O2SAT 94
[2016-07-01] MEDS: chlordiazePOXIDE HCL 25 MG CAPSULE PO SCH ×3 (08:51→22:07)
--- NOTE | 2016-07-01 09:39 | NUR ---
BEHAVIOR: STILL RESTLESS AND MOVING AROUND THE BED. RN COVERING SONIA NOTIFIED. SITTER AT THE BEDSIDE.
[2016-07-01] MEDS: methylPREDNISolone SOD SUCC 40 MG/ML VIAL IVP SCH ×2 (09:48→20:09)
--- NOTE | 2016-07-01 10:00 | NUR ---
AGITATION: STILL AGITATED . REPOSITIONED AND INSTRUCTED TO RELAX AND TO CALM DOWN . WILL CALMED DOWN FOR FEW MINUTES AND STARTED TO BE RESTLESS AFTER. SITTER AT THE BEDSIDE.
--- NOTE | 2016-07-01 11:27 | NUR ---
IV: STARTED A NEW IV SITE ON TH LEFT FOREARM GAUGE 22 INTACT AND INPLACED AND PROTONIX DRIP ATTACHED TO IT.
--- NOTE | 2016-07-01 12:02 | NUR ---
ACTIVITY: STILL RESTLESS AND AGITATED , RN COVERING NOTIFIED.
[2016-07-01 12:41] VITALS: BP 156/75; PULSE 77; RESP 18; TEMP 98.1; O2SAT 93
--- NOTE | 2016-07-01 12:47 | NUR ---
Attempt to release restraint. Attempt ambulation. Patient lunges forward when dangling as if to fall. Held up by script writer. Given bed dawson. Change of linen. Smears of stool on underpad. Needs met. Reapplied restraints. Maintenance IV flush. Respiratory therapist gave nebulizer treatment.
--- NOTE | 2016-07-01 14:24 | NUR ---
ACTIVITY: STILL RESTLESS , MOVING AROUND THE BED, TRYING TO GET OUT FROM BED. RN COVERING REMINDED REGARDING PATIENT BEHAVIOR. TALKED TO PATIENT TO RELAX AND BE CALMED BUT UNSUCCESSFUL.
[2016-07-01] MEDS: MORPHINE 2 MG/ML INJ. SYRINGE IVP PRN (14:28)
--- NOTE | 2016-07-01 14:28 | NUR ---
PAIN: MORPHINE 1 MG. IV GIVEN BY SONIA PEREZ FOR PAIN 7/10 PAIN.
--- NOTE | 2016-07-01 15:58 | NUR ---
SKIN INTEGRITY: BRUISES ON BOTH ARMS NOTED THIS MORNING.
[2016-07-01 16:00] VITALS: BP 150/77; PULSE 97; RESP 20; TEMP 98.4; O2SAT 94
--- NOTE | 2016-07-01 16:07 | NUR ---
ACTIVITY: AWAKE,CONFUSED AND RESTLESS. SITTER AT THE BEDSIDE ALL THE TIMES. RESPIRATION EVEN AND UNLABORED. HAD NON -PRODUCTIVE COUGH AT TIMES ,IV SITES INTACT AND INPLACED ON THE LEFT ANTECUBITAL AND ON LEFT FOREARM AND IVF /PROTONIX ON PROGRESS. SOFT HAND RESTRAINTS INTACT AND INPLACED.WILL CONTINUE TO MONITOR PATIENT AND WATCHING FOR SAFETY.
--- NOTE | 2016-07-01 18:28 | NUR ---
Consultation paged Reason for consultation: Encephalopathy Was consult called: Yes Person who was notified: Julita Consulting Physician: Kody Hui Fulfillment Mail Clerk Specialty: Neurology Fulfillment Mail Clerk
--- NOTE | 2016-07-01 18:35 | NUR ---
CLOSING: STILL RESTLESS, TRYING TO CALM DOWN ,JUST A FEW MINUTES ONLY AND TRYING TO REMOVE RESTRAIN AND TRYING TO GET OUT FROM BED, ON ROOM AIR, ABDOMEN DISTENDED SOFT WITH BOWEL SOUND X 4 QUADRANTS, 2 IV SITES INTACT AND INPLACED WITH IVF ON PROGRESS , SOFT WRIST RESTRAINR INTACT AND INPLACED. SITTER AT THE BEDSIDE. CALL LIGHT WITHIN REACH.
--- NOTE | 2016-07-01 19:40 | NUR ---
Notes; Received pt in bed, awake, confused, responsive to simple command. No SOB or signs of distress noted. Respirations even and unlabored on room air. Skin warm and dry. Abdomen soft and nontender.Ordered ivf infusing well on the left forearm and Protonix infusing at 10ml on the left AC, both iv lines are patent. Excoriation noted in sheldon and rectal area. Z-guard barrier cream applied to reddened areas. Bruises noted on upper extremities. Pt attempts to get out of bed and place lower ext on side rails. Bilateral soft wrist restraints in place for safety. No skin breakdown noted, pulses present. Mclaughlin catheter in place draining shahnaz urine out put. SCDs in place, heels elevated with pillow support. Bed locked and in low position,side rails up x3, call light within reach. Direct observer at bedside at all times. will continue to monitor.
[2016-07-01 19:48] VITALS: BP 165/72; PULSE 103; RESP 20; TEMP 98.8; O2SAT 94
--- NOTE | 2016-07-01 21:00 | NUR ---
NOTES; INCONTINENT OF LOOSE BROWN BM. TOTAL BED BATH GIVEN, LINEN CHANGED. REDNESS TO MEHRAN AND RECTAL AREA NOTED, Z-GUARD SKIN BARRIER CREAM APPLIED. SAFETY MEASURES IN PROGRESS.
--- NOTE | 2016-07-01 22:00 | NUR ---
NOTES; PT AGITATED, REORIENTED BUT PT STILL AGITATED. WILL CONTINUE TO MONITOR.
[2016-07-02] VITALS (9 sets, daily range): BP systolic 127–159; BP diastolic 72–95; PULSE 62–93; RESP 18–21; TEMP 97–98.9; O2SAT 94–100
--- NOTE | 2016-07-02 00:15 | NUR ---
NOTES; STILL AGITATED . REPOSITIONED AND ADJUSTED TO RELAX AND TO CALM DOWN . REORIENTED PT. NO APPARENT DISTRESS NOTED. SAFETY MEASURES IN PROGRESS. DIRECT OBSERVER AT BEDSIDE.
[2016-07-02] MEDS: LevALBUTEROL HCL 1.25 MG/0.5 ML *CONC.* VIAL.NEB (XOPENEX CONC.) INH SCH ×4 (01:30→19:39)
[2016-07-02] MEDS: LORazepam 2 MG/ML VIAL IVP PRN (03:08)
--- NOTE | 2016-07-02 03:08 | NUR ---
NOTES; PT AGITATED, RN COVERING ADMINISTERED ORDERED ATIVAN IV. WILL CONTINUE TO MONITOR.
[2016-07-02] MEDS: PANTOPRAZOLE SODIUM 40 MG in NS 50 ML IV SCH ×5 (03:09→21:31)
[2016-07-02] MEDS: CEFTAZIDIME 1 GM in D5W 50 ML IV SCH ×3 (06:11→23:03)
[2016-07-02] MEDS: metroNIDAZOLE 250 mg/NS 50 ML IV SCH ×3 (06:12→21:31)
--- NOTE | 2016-07-02 06:33 | NUR ---
NOTES; STILL RESTLESS, AND CONFUSED. PT ATTEMPT TO REMOVE RESTRAINT. TRYING TO GET OUT OF BED. ABDOMEN SOFT WITH ACTIVE BOWEL SOUND. IV SITES INTACT AND PATENT. COLT SOFT WRIST RESTRAIN IN PLACED. DIRECT OBSERVER SITTER AT THE BEDSIDE. SAFETY MEASURES IN PROGRESS. CALL LIGHT WITHIN REACH.
[2016-07-02 07:20] LABS: HEMOGLOBIN 12.1 g/dL (14.0-18.0); LYMPHOCYTES # (AUTO) 0.5 K/uL (1.0-5.5)
[2016-07-02 07:26] LABS: CALCIUM 8.1 mg/dL (8.4-11.0); CREATININE 0.72 mg/dL (0.55-1.30); PHOSPHORUS 3.1 mg/dL (2.7-4.5); POTASSIUM 3.5 mmol/L (3.5-5.1)
[2016-07-02 07:30] LABS: BASOPHILS # (AUTO) 0.3 K/uL (0.0-0.2); BASOPHILS % (AUTO) 1.6 % (0.0-2.0); HEMATOCRIT 35.7 % (36-54); MEAN CORPUSCULAR HEMOGLOBIN 30 pg (27-31); MEAN CORPUSCULAR HGB CONC 34 % (32-36); MEAN CORPUSCULAR VOLUME 88 fL (79.0-98.0); MONOCYTES # (AUTO) 0.8 K/uL (0.0-1.0); NEUTROPHILS # (AUTO) 14.8 K/uL (1.8-7.7); NEUTROPHILS % (AUTO) 90.4 % (40.0-70.0); PLATELET COUNT (AUTO) 232 K/uL (130-430); RED BLOOD CELL COUNT(AUTO) 4.07 MIL/uL (4.2-6.2); RED CELL DISTRIBUTION WIDTH 12.2 % (9.0-15.0)
[2016-07-02 07:38] LABS: WHITE BLOOD COUNT (AUTO) 16.4 K/uL (4.8-10.8)
--- NOTE | 2016-07-02 07:50 | NUR ---
Am Notes Received patient from assistant casino shift manager nurse, patient is in bed, awake and confused. No signs of pain or discomfort noted. Assessment complete, bruises are noted on upper extremities bilaterally. Patient is attempting to get out of bed, will continue to reorient patient. Bilateral soft wrist restraints in place for safety, skin and circulation checked, no skin breakdown noted, pulses present bilaterally, will continue to do skin and circulation checks and turn patient side to side to relieve pressure areas, heels elevated with pillow, sitter is at bedside, bed in lowest position, bed alarm on, three side rails up, fall and aspiration precautions in place, will continue to monitor patient
[2016-07-02] MEDS: chlordiazePOXIDE HCL 25 MG CAPSULE PO SCH (08:51)
[2016-07-02] MEDS: methylPREDNISolone SOD SUCC 40 MG/ML VIAL IVP SCH ×2 (08:51→21:30)
--- NOTE | 2016-07-02 09:00 | NUR ---
MEDICATIONS MORNING MEDICATIONS GIVEN TO PATIENT, EDUCATED PATIENT ON POTENTIAL SIDE EFFECTS OF MEDICATIONS, UNABLE TO ASSESS PATIENT'S UNDERSTANDING, WILL EDUCATE FAMILY, PATIENT TOLERATED MEDICATIONS WELL, BED IN LOWEST POSITION, BED ALARM ON, FALL AND ASPIRATION PRECAUTIONS IN PLACE, WILL CONTINUE TO MONITOR
[2016-07-02] MEDS: D5/0.45 NS 1,000 ML IV SCH ×2 (11:30→23:16)
--- NOTE | 2016-07-02 11:30 | NUR ---
RN ROUNDS PATIENT IS RESTING IN BED, EYES CLOSED, NO SIGNS OF DISTRESS OR PAIN, BED IN LOWEST POSITION, BED ALARM ON, THREE SIDE RAILS UP, SITTER AT BED SIDE, FALL PRECAUTIONS IN PLACE, WILL CONTINUE TO MONITOR
--- NOTE | 2016-07-02 13:35 | NUR ---
RN ROUNDS PATIENT IS A LITTLE AGITATED, WILL CONTINUE TO REORIENT PATIENT, NO SIGNS OF PAIN OR DISTRESS, SITTER IS AT BEDSIDE, BED IN LOWEST POSITION, BED ALARM ON, THREE SIDE RAILS UP, FALL PRECAUTIONS IN PLACE, WILL CONTINUE TO MONITOR PATIENT
--- NOTE | 2016-07-02 15:22 | NUR ---
IV RE-INSERTION: Complaining of pain to IV site. Restarted on right hand 22. Successful after 1 attempts. Resumed current IVF of d51/2 @ 60ml/hour and left forearm 22g protonix @ 10ml/hour. Will observe for any signs of infiltration.
--- NOTE | 2016-07-02 16:01 | NUR ---
RN ROUNDS PATIENT IS A LITTLE RESTLESS, PATIENT SHOWS NO SIGNS OF DISCOMFORT OR DISTRESS, PATIENT REORIENTED, SITTER AT BEDSIDE, PATIENT'S BED IS IN LOWEST POSITION, BED ALARM ON, SIDE RAILS UP, FALL AND ASPIRATION PRECAUTIONS IN PLACE, WILL CONTINUE TO MONITOR PATIENT
--- NOTE | 2016-07-02 17:12 | NUR ---
DC PLANNING: PATIENT NOT YET READY FOR DISCHARGE PER DR. [place] , MORE LETHARGIC, RESTLESS AND CONFUSED, INFORMED CM/CHEO OF [facility] , HE IS REQUESTING RESULTS OF THE MRI OF THE BRAIN, NEURO CONSULT AND PSYCH CONSULT TO BE FAX TO HIM TOMORROW FAX# [phone]; TEL# [phone] EXT [phone].
[2016-07-02] MEDS: INSULIN REGULAR, HUMAN 100 UNITS/ML, 10 ML VIAL (novoLIN R) SUBCUT PRN (17:42)
--- NOTE | 2016-07-02 18:38 | NUR ---
Nutrition F/U Admitting Diagnosis (modified) Acute respiratory failure, COPD, sepsis w/leukocytosis and lactic acidemia, pseudomonas PNA Past Medical History Asthma, drug abuse, DM, HTN Pertinent Medications (modified) shirley-medrol IV, ativan, D50%-syringe, glucose, SSI, metronidazole, ceftriaxone sodium, morphine, dextrose/NaCl, pantoprazole Na/NCl Current Diet Order CCHO, mechanical soft (x2 days) Height (Feet) 5 feet Height (Inches) 5.00 inches Weight (Pounds) 154 pounds (admission) 158 lb, 72 kg (06/19/16) 157 lb, 71 kg (06/21/16) 157 lb, 71 kg (06/26/16) 151 lb, 69 kg (06/29/16) 146 lb, 66 kg (07/02/16); noted possible 5 lb loss Weight (Calculated Kilograms) 69.551052 kilograms Patient Weight 69.853 kg Body Mass Index 25.3 kg/m2 (normal) [place]/Adjusted Body Weight IBW: 136 lb, 62 kg. 113% of IBW Estimated Needs (modified) 4379-9650 kcal/day (30-35 kcal/kg CBW for sepsis) Grams of Protein per Day (modified) 105-140 gm/day (1.5-2 gm/kg CBW for sepsis) Fluid Intake Goal 1.8-2.1 L/day (25-30 kcal/kg CBW for adult maintenance) Pertinent Labs H/H 12.1 L/35.7 L, BG 158 H 06/25/16: lactic acid 2.3 H 06/19/16: Mg 2.6 H, Phos 2.5 L Other Subjective Data Pt seen resting in bed w/ altered mental state, bilateral soft wrist restraints present, dinner tray at bedside (appeared to have consumed ~10-20%), no TF hanging/infusing. Per RN aide, pt was very lethargic earlier and ate only 10% of lunch earlier. Reported that pt appears to have been tolerating PO intake. Per RN, pt had CT scan today. Noted per ST note 06/30/16, pt has severe dysphagia w/ PO refusal, at risk for aspiration, malnutrition and dehydration (recommendation: NPO and alternative method of feeding). Per EMR, average PO intake is 71% x 4 meals; abdomen is soft/non-distended w/ active bowel sounds. Tyrone: 16. Per RN notes, L/R arm: bruise, rash; posterior buttocks: rash, posterior scrotum: redness; R arm: bruise. I/Os (07/02/16): 1020/900 (+120 ml), 3 BMs recorded today. Pt is not yet meeting optimal nutritional needs. Recommend re-evaluation w/ ST, as pt would benefit from oral supplementation (recommend Boost Glucose Control BID, pending ST recs). Pt is not appropriate for nutrition education. Problem, Etiology, Signs/Symptoms (modified) Inadequate nutritional needs related to critically ill state as evidenced by current tube feeding regimen meeting 52% of estimated caloric needs and 39% of lower end of estimated protein needs. *no longer applicable Inadequate oral intake related to impaired cognitive ability and dysphagia as evidenced by estimated PO intake inadequate compared to estimated nutritional needs and abnormal swallow evaluation per Speech Therapy. *new Expected Outcomes or Goals * Monitor tolerance of diet, appetite, and PO intakes with goal of pt meeting at least 50% of estimated nutritional needs, labs trending WNL, normal GI function, skin integrity/weight maintenance Dietitian Recommendations * Continue CCHO, mechanical soft diet per MD * Recommend re-evaluation with ST * Monitor advancement of diet per ST * Recommend Boost Glucose Control BID pending ST recommendations Follow Up High Risk: F/U in 2-3days Addendum: 07/02/16 at [address] *CORRECTION: Dietitian Recommendations * Continue CCHO, mechanical soft diet per MD * Assist w/ meals to ensure safe PO intake * Recommend re-evaluation with ST * Monitor advancement of diet per ST * Recommend Boost Glucose Control BID pending ST recommendations
--- NOTE | 2016-07-02 18:44 | NUR ---
CLOSING NOTES PATIENT RESTING IN BED, EYES CLOSED, BREATHING IS EVEN AND UNLABORED, NO SIGNS OF DISTRESS, PATIENT IS CALM, BILATERAL SOFT WRIST RESTRAINTS IN PLACE WITH SITTER AT THE BEDSIDE, ALL NEEDS MET, WILL ENDORSE REPORT TO NOC SHIFT NURSE,BED IN LOWEST POSITION, THREE SIDE RAILS UP, BED ALARM ON, BED CLOSE TO NURSE'S STATION, FALL AND ASPIRATION PRECAUTIONS IN PLACE.
--- NOTE | 2016-07-02 20:00 | NUR ---
ROUNDS PATIENT IN BED, AWAKE, ALERT, CONFUSED, NOT IN DISTRESS, VITALS STABLE. NO SIGNS OF ANY PAIN AND DISCOMFORT NOTED. ASSESSMENT DONE AND DOCUMENTED. SEE FLOWSHEET. ON BILATERAL SOFT WRIST RESTRAINTS ORDERED, WITH GOOD PULSES. NEEDS ATTENDED TO. REPOSITIONED AND MADE COMFORTABLE. SAFETY AND FALL PRECAUTION MEASURES IN PLACED. WILL CONTINUE TO MONITOR.
--- NOTE | 2016-07-02 22:22 | NUR ---
Phoned paged MD DR Morales regarding patient to medical surgical non tele in/ patient .
--- NOTE | 2016-07-02 22:49 | NUR ---
Spoke with DR Morales , new orders , change patient to med - surgical / .
--- NOTE | 2016-07-03 | NUR ---
PATIENT RESTING: Patient resting quietly. No acute distress noted. Vital signs within normal range.
[2016-07-03] MEDS: LevALBUTEROL HCL 1.25 MG/0.5 ML *CONC.* VIAL.NEB (XOPENEX CONC.) INH SCH ×4 (01:20→19:31)
--- NOTE | 2016-07-03 02:00 | NUR ---
ROUNDS PATIENT AWAKE, NOT IN DISTRESS, VITALS STABLE. WILL CONTINUE TO MONITOR.
[2016-07-03] MEDS: PANTOPRAZOLE SODIUM 40 MG in NS 50 ML IV SCH ×4 (03:27→16:51)
--- NOTE | 2016-07-03 04:00 | NUR ---
PATIENT RESTING: Patient resting quietly. No acute distress noted. Vital signs within normal range.
[2016-07-03 04:56] VITALS: BP 149/71; PULSE 72; RESP 20; TEMP 98.1; O2SAT 93
[2016-07-03] MEDS: metroNIDAZOLE 250 mg/NS 50 ML IV SCH ×2 (05:38→13:15)
--- NOTE | 2016-07-03 07:00 | NUR ---
CLOSING NOTES PATIENT AWAKE, VITALS STABLE, NO PAIN AT THIS TIME. IV SITE INFILTRATED ON THE RIGHT HAND, ATTEMPTS UNSUCCESSFUL. WILL ENDORSE TO MORNING SHIFT NURSE. ACCU CHECK DONE WITH BLOOD SUGAR OF 97 MG/DL. ALL NEEDS ATTENDED TO. CALL LIGHT PLACED WITH PATIENT.
--- NOTE | 2016-07-03 07:45 | NUR ---
INITIAL NOTE Received pt in bed, no s/s of distress or sob noted, pt has no facial grimacing noted for pain, pt in stable condition. Pt alert and oriented x1, to name only, confused. Provided pt with reality orientation. Removed bilateral wrist restraints as pt has a sitter at bedside for safety, charge nurse aware. Bed at lowest position, call light within reach, will continue to monitor pt for any changes. Pt has bilateral scd's in place. Bed at lowest position, call light within reach, will continue to monitor pt for any changes, fall precautions in place.
[2016-07-03 07:56] VITALS: BP 128/65; PULSE 77; RESP 17; TEMP 98.6; O2SAT 98
[2016-07-03] MEDS: methylPREDNISolone SOD SUCC 40 MG/ML VIAL IVP SCH ×2 (08:55→23:41)
--- NOTE | 2016-07-03 10:21 | NUR ---
Rounds Pt in bed, no s/s of distress or sob noted, pt has no c/o pain at this time, pt in stable condition, pt resting comfortably, will continue to monitor pt for any changes. Sitter at bedside for safety.
[2016-07-03] MEDS: FLUCONAZOLE 100 mg/ NS 50 ML IV SCH (10:58)
--- NOTE | 2016-07-03 11:01 | NUR ---
DC PLANNING Called & spoke w Dr Morales to discuss dc plan, read him CT Head results, states will come in to examine pt & order dc to LTAC if stable. Addendum: 07/03/16 at 1108 by Brandie Hubbard DP Called and notified Miguelangel Blair who will obtain updated clinicals from [facility] for re-evaluation and will have Miguelangel central office obtain insurance auth for bed assignment. DCP will follow up. Addendum: 07/03/16 at 1234 by Brandie Hubbard DP LATE ENTRY ZHAO March 07/01/16: Faxed SNF referral to [facility] and [facility]. MICHELLE Tomlin at [facility] came today to evaluate patient. Nabor stated patient still confused and due to patient needing DO facility unable to accept patient at this time. Received call from Eleanor at [facility] patient was accepted and bed assignment 5A was given to weekend CM requested return call back when patient will be discharged to SNF. ZHAO Wu made aware and will follow up with . Addendum: 07/03/16 at 1323 by Jazmin Isbell RN Earlier today received call [facility] [employer] [facility] ph [phone], if pt still requiring LTAC. Informed Pancho that pt still needed LTAC, requested to fax CT Head, Neuro consult, & Labs, fax pt info requested fax [phone]. Called sister, Massiel ph [phone], to discuss dc planning, no answer & ph just gwen unable to leave msg. Addendum: 07/03/16 at 1435 by Jazmin Isbell RN Received msg from Pancho Sargent, cell ph [phone], that he is pt's primary contact & would like pt dc'd to facility he works in upon dc. Received call from Salome @ [facility](states it is a SNF), ph [phone], works in admitting & works w pt's nephew Pancho. States that will be willing to work w insurance to see if can accept pt there once he is stable for dc. [facility] does not have contract w [employer] but has worked w [employer] many times in past & has gotten CHRISTO from them. Transferred my call to Pancho. Spoke w Pancho, states that he is pt's nephew & primary contact. Informed tried calling pt's sister Massiel but no answer. [facility] has spoken w his Aunt Massiel & she does not want to make decisions that he is to make decisions. Informed Pancho that Dr Morales ordered LTAC, states that he is agreeable w LTAC. If pt needs to dc to SNF would want pt to go to [facility]. Also states that pt goes by Jp. Updated pt's nurseAnnetta. Addendum: 07/03/16 at 1550 by Jazmin Isbell RN Received call from Pancho @ [employer] [place] that their Md Dr Villarreal wanted MRI brain, Psych consult, & L.P. to review for LTAC. Discussed w Dr Morales in nsg station. States pt too high risk for aspiration for MRI & not needed, that ID & neuro have evaluated pt & do not recommend L.P. that does not need, ordered psych consult. States pt doing better & called & discussed w pt's nephleroy Deleon if cont doing better tomorrow may be able to dc to SNF. States ok to fax info to [facility] for review. Informed rony Diego materials planner/production planner. Addendum: 07/03/16 at 1639 by Brandie Hubbard DP Salome at [facility] came to evaluation patient. Patient accepted and will hold bed for patient discharge. Meanwhile; Per CM note [facility] [phone]. Will follow up.
[2016-07-03] MEDS: INSULIN REGULAR, HUMAN 100 UNITS/ML, 10 ML VIAL (novoLIN R) SUBCUT PRN ×2 (11:32→16:53)
[2016-07-03 12:00] VITALS: BP 122/71; PULSE 79; RESP 17; TEMP 99.1; O2SAT 98
--- NOTE | 2016-07-03 12:05 | NUR ---
Rounds Pt in bed, no s/s of distress or sob noted, pt has no c/o pain at this time, pt in stable condition, pt resting comfortably, will continue to monitor pt for any changes. Addendum: 07/03/16 at 1452 by Viki Gallardo RN sitter at bedside for safety
--- NOTE | 2016-07-03 15:51 | NUR ---
CONSULT PSYCH ENCEPHALOPATHY DR ARITA [phone] S/W [place] OFFICE
[2016-07-03 16:00] VITALS: BP 151/64; PULSE 68; RESP 20; TEMP 99.6; O2SAT 97
--- NOTE | 2016-07-03 18:45 | NUR ---
Closing Note Pt in bed, no s/s of distress or sob noted, pt has no facial grimacing noted for pain, pt in stable condition. Pt alert and oriented x2, to name only, confused at times. Provided pt with reality orientation. Bed at lowest position, call light within reach, will endorse care of pt to incoming nurse. Pt has bilateral scd's in place. Fall precautions in place. Needs met throughout shift, sitter at bedside for safety.
[2016-07-03 19:46] VITALS: BP 141/86; PULSE 84; RESP 16; TEMP 99.1; O2SAT 97
--- NOTE | 2016-07-03 20:00 | NUR ---
initial nursing notes: Patient is awake and is confused. Sitter/staff is in the patient's room at all times. Reoriented patient to place, time and reason for being in the hospital. Kept bed alarm on for patient's safety. Patient's room is next to the nurses' station.
--- NOTE | 2016-07-03 22:00 | NUR ---
nursing rounds: Patient resting in bed. Patient's Mclaughlin catheter is draining clear yellow urine output.
[2016-07-03] MEDS: CEFTAZIDIME 1 GM in D5W 50 ML IV SCH (23:40)
[2016-07-04] VITALS (8 sets, daily range): BP systolic 116–142; BP diastolic 58–98; PULSE 64–92; RESP 16–20; TEMP 97.5–99.1; O2SAT 92–97
--- NOTE | 2016-07-04 | NUR ---
nursing rounds: Patient asleep in bed. Patient has no shortness of breath.
[2016-07-04] MEDS: metroNIDAZOLE 250 mg/NS 50 ML IV SCH ×4 (00:30→21:20)
[2016-07-04] MEDS: D5/0.45 NS 1,000 ML IV SCH ×2 (00:31→13:33)
[2016-07-04] MEDS: PANTOPRAZOLE SODIUM 40 MG in NS 50 ML IV SCH ×6 (00:35→23:52)
[2016-07-04] MEDS: LevALBUTEROL HCL 1.25 MG/0.5 ML *CONC.* VIAL.NEB (XOPENEX CONC.) INH SCH ×4 (01:05→19:50)
--- NOTE | 2016-07-04 02:00 | NUR ---
nursing rounds: Patient woke up and pulled his IV access. New IV access started.
--- NOTE | 2016-07-04 04:00 | NUR ---
nursing rounds: Patient sleeping in bed. Patient has no episode of falls and no injuries.
--- NOTE | 2016-07-04 06:00 | NUR ---
nursing rounds: Patient calmly resting in bed. Patient has no respiratory distress.
--- NOTE | 2016-07-04 08:02 | NUR ---
closing nursing notes: Patient is awake, resting in bed. Patient is in no acute respiratory distress. No episodes of fall and no injuries throughout the slot shift supervisor. Provided nursing report to incoming morning shift nurse, ANA Rabago, at patient's bedside.
[2016-07-04] MEDS: methylPREDNISolone SOD SUCC 40 MG/ML VIAL IVP SCH (09:09)
[2016-07-04] MEDS: CEFTAZIDIME 1 GM in D5W 50 ML IV SCH ×2 (09:09→21:19)
--- NOTE | 2016-07-04 09:10 | NUR ---
Routine Patient resting in bed with eyes closed. No respiratory distress noted. Scheduled IV and IVP medications given per order. Patient stable at this time.
--- NOTE | 2016-07-04 10:10 | NUR ---
DISCHARGE PLANNING Called [facility] [phone] spoke with Salome in admitting who stated referral pending to be reviewed by facility DON and will return call to [facility] with facility decision. Salome stated facility will need to obtain CHRISTO if accepted and was provided with ZHAO Deleon at [facility] contract info. [facility] will continue to follow up. Addendum: 07/04/16 at 1246 by Brandie Hubbard DP Received call from Emmy in admitting at [facility] unable to accept patient with IV medication at Q6hrs. Spoke with patient cornelia Deleon who requested MD to call him on cell [phone], requesting MD to change medications to PO. ZHAO Wu made aware. Received call from Salome at [facility] who wanted to know if insurance is going to give CHRISTO to [facility] as they are currently holding bed for patient discharge. Called ZHAO Deleon at [facility] [phone] Ext:[phone] who will put in request for CHRISTO for [facility]. Pancho stated not a guarantee CHRISTO will be granted due to contracted accepting facility. Pancho will return call to [facility] with CHRISTO decision. Will follow up. Addendum: 07/04/16 at 1539 by Brandie KUHN Received call from ZHAO Deleon at [facility] who stated their medical doctor did not approve CHRISTO for [facility]. Called and spoke with patient nephleroy Deleon who was updated and is agreeable with patient discharge and transfer to [facility] today. Pancho requested for his contact number to be forwarded to [facility] for any and all updates pertaining to patient. Spoke with Salome in admitting at [facility] patient assigned to room 5A RN to report , bed available anytime. Called nurses station, no answer. Called [facility] [phone] placed BLS transport on will call. Placed transportation packet in nurses station. Addendum: 07/04/16 at 1624 by Brandie KUHN Received call from Pancho patient nephleroy who was provided with ZHAO Deleon number to call. Pancho going to request decision for CHRISTO to be overturned. Pancho will return call to [facility] with update on CHRISTO. ZHAO Wu made aware. Addendum: 07/04/16 at 1714 by Brandie KUHN Returned call to ZHAO Deleon at [facility] [phone] call gets dropped. Returned call to Pancho patient cornelia who stated CHRISTO currently in process to be overturned and being re-reviewed by Caleb at [facility] for patient SNF placement at [facility]. ADELAIDEP will follow up in AM.
--- NOTE | 2016-07-04 11:10 | NUR ---
Assessment Patient awake, alert, oriented x1. Wheezing on exhalation. Respiration even and unlabored. Peripheral IV x2 in left forearm infusing protonix at 10 ml/hr and IV ABX at 50 ml/hr. Bruises and abrasions on bilateral upper extremities. Mclaughlin catheter draining clear, shahnaz urine. Patient denies pain at this time. Patient stable at this time.
[2016-07-04] MEDS: FLUCONAZOLE 100 mg/ NS 50 ML IV SCH (11:25)
--- NOTE | 2016-07-04 11:25 | NUR ---
Routine Checked blood sugar: 149 mg/dl - no coverage required. Patient sitting in bed with no respiratory distress noted. Denies pain at this time. Patient stable.
--- NOTE | 2016-07-04 13:35 | NUR ---
Routine Patient resting comfortably in bed receiving breathing treatment. Patient stable at this time.
--- NOTE | 2016-07-04 16:40 | NUR ---
Routine Patient resting comfortably in bed with no acute distress noted. Patient denies pain at this time. Patient stable.
--- NOTE | 2016-07-04 17:25 | NUR ---
Routine Checked blood sugar: 199 mg/dl - will cover per sliding scale.
[2016-07-04] MEDS: INSULIN REGULAR, HUMAN 100 UNITS/ML, 10 ML VIAL (novoLIN R) SUBCUT PRN (18:15)
--- NOTE | 2016-07-04 18:17 | NUR ---
Routine Covered per sliding scale. Patient assisted with dinner. Patient stable.
--- NOTE | 2016-07-04 19:55 | NUR ---
PM SHIFT ASSESSMENT Received patient in bed, aox1, confused, no sob noted, on room air. Vitals stable. IV lines to left forearm intact and patent, Protonix drip and IVF infusing. Mclaughlin catheter secured and to gravity, draining yellow urine. Patient has sitter at bedside. Fall precautions in place, will closely monitor.
[2016-07-04] MEDS: PREDNISONE 10 MG TABLET PO SCH (21:20)
--- NOTE | 2016-07-04 21:45 | NUR ---
RN ROUNDS Patient awake, due medications administered, aspiration precautions maintained, Due antibiotics administered.
--- NOTE | 2016-07-04 22:27 | NUR ---
RN ROUNDS Patient awake, in no distress, confused, reoriented to time and place, sitter remains at bedside. Safety measures in place, will continue to monitor.
--- NOTE | 2016-07-04 23:23 | NUR ---
RN ROUNDS Patient's blood sugar this pm of 151. Denies any pain or discomfort at this time. Sitter remains at bedside, Patient repositioned for comfort.
--- NOTE | 2016-07-05 00:39 | NUR ---
RN ROUNDS/IV Patient removed iv lines to left forearm, new IV lines placed on right hand with 22 gauge catheter and right forearm with 22 gauge catheter, continued Protonix drip and IV antibiotics. Patient's vitals stable. Repositioned and turned with pillow support, sitter remains at bed side, will closely monitor.
[2016-07-05] MEDS: LevALBUTEROL HCL 1.25 MG/0.5 ML *CONC.* VIAL.NEB (XOPENEX CONC.) INH SCH ×3 (00:50→13:17)
--- NOTE | 2016-07-05 02:22 | NUR ---
RN ROUNDS Patient sleeping, respirations even and unlabored, repositioned for comfort. Safety measures in place, will continue to monitor.
--- NOTE | 2016-07-05 04:25 | NUR ---
RN ROUNDS Patient awake, resting quietly in bed, vital signs stable. Repositioned for comfort. Safety measures in place, sitter remains at bedside. Will continue to monitor.
[2016-07-05] MEDS: PANTOPRAZOLE SODIUM 40 MG in NS 50 ML IV SCH ×2 (04:52→09:32)
[2016-07-05] MEDS: metroNIDAZOLE 250 mg/NS 50 ML IV SCH (05:00)
[2016-07-05 05:20] VITALS: BP 120/72; PULSE 74; RESP 16; TEMP 98.8; O2SAT 98
--- NOTE | 2016-07-05 05:38 | NUR ---
RN ROUNDS Patient trying to remove IV lines, reoriented to time and place, hygiene care provided, repositioned for comfort. Due antibiotics administered. Will closely monitor.
[2016-07-05] MEDS: INSULIN REGULAR, HUMAN 100 UNITS/ML, 10 ML VIAL (novoLIN R) SUBCUT PRN ×2 (05:52→12:40)
--- NOTE | 2016-07-05 06:15 | NUR ---
RN ROUNDS Patient's awake, no sob noted, blood sugar this am of 176. covered with regular insulin sliding scale. Patient denies any pain or discomfort at this time. Iv lines to right extremity intact and patent, Ivpb and Protonix drip infusing. Patient needs attended to, sitter remains at bedside, will continue to monitor until report given to am nurse.
--- NOTE | 2016-07-05 06:50 | NUR ---
AM ROUNDS Pt sleeping. Opens eyes. A/O x1 to name only...Pt denies pain at this time...IVF infusing well to RW, Protonix infusing well to RH...FC draining well via gravity...Pt with multiple bruises to BUE due to pulling out IV..IV site wrapped...D/O at bedside...Will cont to monitor
[2016-07-05] MEDS ORDERED: risperiDONE 0.25 MG TABLET (RisperDAL) PO SCH (09:00)
[2016-07-05] MEDS: CEFTAZIDIME 1 GM in D5W 50 ML IV SCH (09:32)
[2016-07-05] MEDS: PREDNISONE 10 MG TABLET PO SCH (09:54)
--- NOTE | 2016-07-05 10:09 | NUR ---
ROUNDS Patient awake alert and oriented x1. Reoriented patient to time and location. IV ABX and Protonix infusing as ordered. No further needs at this time. Will continue to monitor. Safety and fall precautions in place, call light within reach.
--- NOTE | 2016-07-05 10:34 | NUR ---
DISCHARGE PLANNING Returned call to Emmy in admitting at [facility] who wanted verification on IV medications have been changed to PO. Emmy made aware follow up needed for CHRISTO and patient has been cleared to discharge to SNF. Called and spoke with ZHAO Deleon at [facility] [phone] who stated their medical service representative Caleb is still re-reviewing for CHRISTO. Pancho stated overturned decision for CHRISTO could take 1-2 days. ZHAO Flower made aware and will follow up with patient nephew Pancho.
--- NOTE | 2016-07-05 10:45 | NUR ---
IV TO RH PULLED OUT BY PT
--- NOTE | 2016-07-05 10:57 | NUR ---
Discharge Planning Called and left message with patient's nephew, Pancho [phone], asking him to return my call. Addendum: 07/05/16 at 1351 by Ewa Bernard RN Called nephew once again and just got voicemail. Called to [facility], , where nephew is employed. Was told Pancho was at lunch. Left my name and number asking that he return my call. Addendum: 07/05/16 at 1509 by Ewa Bernard RN Called and spoke with ZHAO Deleon @ [facility] who stated that they are sending CHRISTO over to [facility] for signature authorizing [facility]. He stated that we should be getting that auth any time now. I called and spoke with patient's nephew Pancho who is agreeable to patient transfer to [facility] once auth obtained. I called and spoke with Emmy Roldan [facility] who states that she has also been in contact with ZHAO Deleon @ [facility] and is aware that we are just waiting for signature. She stated she will call him again to see where we are in the process. Bed Assignment 16-B. Addendum: 07/05/16 at 1554 by Ewa Bernard RN Received call back from Emmy Roldan [facility] who stated that she received the CHRISTO from [facility]. She stated patient is accepted and can transfer to them any time. Addendum: 07/05/16 at 1603 by Brandie Hubbard DP Called [facility] [phone] spoke with Kd GERONIMO transport corn picker 6pm.
--- NOTE | 2016-07-05 11:08 | NUR ---
PLACED PT ON BEDPAN, NO BM
[2016-07-05 11:10] VITALS: BP 159/79; PULSE 87; RESP 18; TEMP 99.2; O2SAT 95
[2016-07-05] MEDS: FLUCONAZOLE 100 mg/ NS 50 ML IV SCH (11:54)
--- NOTE | 2016-07-05 12:45 | NUR ---
PULLED 2ND IV OUT (RFA)...
[2016-07-05 13:17] VITALS: PULSE 101
--- NOTE | 2016-07-05 15:01 | NUR ---
Nutrition F/U Admitting Diagnosis (modified) Acute respiratory failure, COPD, sepsis w/leukocytosis and lactic acidemia, pseudomonas PNA Past Medical History Asthma, drug abuse, DM, HTN Pertinent Medications (modified) protonix, prednisone, D50%-syringe, glucose, SSI Current Diet Order CCHO, mechanical soft (x5 days) Height (Feet) 5 feet Height (Inches) 5.00 inches Weight (Pounds) 154 pounds (admission) 158 lb, 72 kg (06/19/16) 157 lb, 71 kg (06/21/16) 157 lb, 71 kg (06/26/16) 151 lb, 69 kg (06/29/16) 146 lb, 66 kg (07/02/16) Weight (Calculated Kilograms) 69.337210 kilograms Patient Weight 69.853 kg Body Mass Index 25.3 kg/m2 (normal) Hurricane/Adjusted Body Weight IBW: 136 lb, 62 kg. 113% of IBW Estimated Needs (modified) 0524-9854 kcal/day (30-35 kcal/kg CBW for sepsis) Grams of Protein per Day (modified) 105-140 gm/day (1.5-2 gm/kg CBW for sepsis) Fluid Intake Goal 1.8-2.1 L/day (25-30 kcal/kg CBW for adult maintenance) Pertinent Labs POC BG 164 H 07/02/16: WBC 16.4 H, Hgb 12.1 L, Hct 35.7 L, BG 158 H, Mg 1.8 WNL, Phos 3.1 L 06/25/16: Lactic acid 2.3 H Other Subjective Data Pt seen resting in bed, appears of pleasant nature, but unable to fully engage in RD verbal interview. Per ELECTRONIC HEALTH RECORDS SPECIALIST, pt was able to tolerate a few bites of half of hamburger, some milk, and orange juice at lunch. She reports that pt is pending possible transfer to SNF. Per EMR, PO Intakes: 41% average x7 meals. Abd is soft w/ active bowel sounds. Last BM x1 07/04/16. Tyrone scale: 15. Per nursing notes, L arm: abrasion; posterior buttocks: redness; posterior sacrum: redness; R arm: abrasion. I/O: 710/1350 (-640 ml) per 12 hours. Current diet is appropriate at this time. Pt is not appropriate for nutrition education. Problem, Etiology, Signs/Symptoms (modified) Inadequate nutritional needs related to critically ill state as evidenced by current tube feeding regimen meeting 52% of estimated caloric needs and 39% of lower end of estimated protein needs. *no longer applicable Inadequate oral intake related to impaired cognitive ability and dysphagia as evidenced by estimated PO intake inadequate compared to estimated nutritional needs and abnormal swallow evaluation per Speech Therapy. *partially resolved Expected Outcomes or Goals * Monitor tolerance of diet, appetite, and PO intakes with goal of pt meeting at least 50% of estimated nutritional needs, labs trending WNL, normal GI function, skin integrity/weight maintenance Dietitian Recommendations * Recommend CCHO, mechanical soft diet, Boost Glucose Control BID * Assist w/ meals to ensure safe PO intake Follow Up Moderate Risk: F/U in 3-5 days
--- NOTE | 2016-07-05 16:06 | NUR ---
Spoke with calvin Rucker to change IV ABX to PO at this time and no need to reinsert IV at this time.
--- NOTE | 2016-07-05 16:30 | NUR ---
ROUNDS PT STABLE... DENIES PAIN...WILL CONT TO MONITOR
--- NOTE | 2016-07-05 17:45 | NUR ---
REPORT GIVEN TO FELIPE REDMAN AT [facility] [phone] P/U TO BE AT 1800
[2016-07-05] MEDS: metroNIDAZOLE 250 MG TABLET PO ONE ×2 (17:59→18:05)
[2016-07-05] MEDS: PANTOPRAZOLE SODIUM 40 MG TAB PO ONE ×2 (17:59→18:05)
--- NOTE | 2016-07-05 18:06 | NUR ---
[facility] CALLED TO SAY THEY ARE RUNNING LATE..P/U TO BE [phone]
--- NOTE | 2016-07-05 18:10 | NUR ---
FAMILY AT BEDSIDE. INFORMED TO P/U TIME CHANGED
--- NOTE | 2016-07-05 18:54 | NUR ---
STILL AWAITING CERTIFIED MEDICAL ASSISTANT
[2016-07-05 18:56] VITALS: BP 150/72; PULSE 81; RESP 18; TEMP 99; O2SAT 96
--- NOTE | 2016-07-05 19:20 | NUR ---
SPOKE W/ESTRELLA AT [facility]..P/U LATE ANOTHER 25-45 MINUTES FAMILY STILL AT BEDSIDE WAITING FOR P/U...PT BECOMING AGITATED, WANTING TO LEAVE...WILL REPORT TO NOC NURSE
--- NOTE | 2016-07-05 19:58 | NUR ---
NOTES PATIENT DISCHARGED ORDERED VIA AMBULANCE , VITALS STABLE, ALL TRANSITION ORDER INSTRUCTIONS DONE BY ANazarioNURSE.
[2016-07-05] MEDS ORDERED: metroNIDAZOLE 250 MG TABLET PO SCH (22:00)
[2016-07-06] MEDS ORDERED: PANTOPRAZOLE SODIUM 40 MG TAB PO SCH (09:00)
== END 2016-07-05 19:58 | DRG 870 ==
LOC: SED 17:58 → SIC 18:42 → STU 06-30 22:27 → SMU 07-02 23:00
PROVIDERS: ADMIT Family Medicine; ATTEND Family Medicine
PROC: 0BH17EZ Insertion of Endotracheal Airway into Trachea, Via Natural or Artificial Opening (ICD-10-PCS; principal; 2016-06-17)
PROC: 5A1955Z Respiratory Ventilation, Greater than 96 Consecutive Hours (ICD-10-PCS; 2016-06-17)
PROC: 0DB98ZX Excision of Duodenum, Via Natural or Artificial Opening Endoscopic, Diagnostic (ICD-10-PCS; 2016-06-26)
PROC: 0DB68ZX Excision of Stomach, Via Natural or Artificial Opening Endoscopic, Diagnostic (ICD-10-PCS; 2016-06-26)
PROC: 02HV33Z Insertion of Infusion Device into Superior Vena Cava, Percutaneous Approach (ICD-10-PCS; 2016-06-26)
PROC: B548ZZA Ultrasonography of Superior Vena Cava, Guidance (ICD-10-PCS; 2016-06-26)
PROC: 0DBH8ZX Excision of Cecum, Via Natural or Artificial Opening Endoscopic, Diagnostic (ICD-10-PCS; 2016-06-28)
PROC: 0DBN8ZX Excision of Sigmoid Colon, Via Natural or Artificial Opening Endoscopic, Diagnostic (ICD-10-PCS; 2016-06-28)
DX: A41.9 Sepsis, unspecified organism (principal); J96.00 Acute respiratory failure, unspecified whether with hypoxia or hypercapnia; J15.1 Pneumonia due to Pseudomonas; G93.41 Metabolic encephalopathy; J45.901 Unspecified asthma with (acute) exacerbation; J44.0 Chronic obstructive pulmonary disease with (acute) lower respiratory infection; K92.1 Melena; J44.1 Chronic obstructive pulmonary disease with (acute) exacerbation; I10 Essential (primary) hypertension; E11.9 Type 2 diabetes mellitus without complications; K64.8 Other hemorrhoids; K57.30 Diverticulosis of large intestine without perforation or abscess without bleeding; K44.9 Diaphragmatic hernia without obstruction or gangrene; K29.70 Gastritis, unspecified, without bleeding; D12.0 Benign neoplasm of cecum; D12.5 Benign neoplasm of sigmoid colon; F15.10 Other stimulant abuse, uncomplicated; F29 Unspecified psychosis not due to a substance or known physiological condition; Z79.899 Other long term (current) drug therapy; Z87.891 Personal history of nicotine dependence
CPT/HCPCS: 36415; 36600; 43239; 45384; 45385; 70450-TC; 71010; 71250-TC; 74000-TC; 74250-TC; 80048; 80053; 80307; 81000-TC; 82140-TC; 82607; 82803-TC; 82962; 83605; 83690-TC; 83735-TC; 83880; 84100-TC; 84443-TC; 84478-TC; 84484; 85007; 85025; 85027; 85610-TC; 85730-TC; 87040-TC; 87070-TC; 87081; 87186-TC; 87205-TC; 87230-TC; 88305; 88312; 88313; 92610-GN; 93005; 94002; 94003; 94640; 94760; 96365; 96375; 99291; C1751; C9113; J0360; J0696; J0713; J1030; J1450; J1630; J1650; J1815; J1956; J2060; J2250; J2270; J2704; J2930; J3010; J3490; J7030; J7040; J7060; J7512; Q9963

== ENCOUNTER 2016-12-08 10:09 | Inpatient (IN) | payer OTHER, MEDICAID ==
[~2016-12-08] VITALS: Ht 165.1 cm; Wt 70.3 kg
[2016-12-08 10:10] VITALS: BP_SYST 159
--- NOTE | 2016-12-08 10:10 | NUR ---
Patient arrived via [facility] ambulance which was activated due to severe SOB. O2 sat on arrival to patients home was 91% with tripoding. Patient was placed on CPAP by EMS. Placed in room 1. Placed on geothermal plant manager, blood pressure machine and pulse oximeter. To gown for exam. Side rails up. Report given to Selina PEREZ.
[2016-12-08] MEDS ORDERED: IPRATROPIUM/ALBUTEROL SULFATE 3 ML AMPUL.NEB INH ONE (10:15)
[2016-12-08] MEDS ORDERED: methylPREDNISolone SOD SUCC/PF 62.5 MG/ML VIAL IVP ONE ×2 (10:15→14:00)
--- NOTE | 2016-12-08 10:15 | NUR ---
VIJAYA Akers at bedside examining patient.
--- NOTE | 2016-12-08 10:20 | NUR ---
PATIENT PLACED IN BIPAP 12/5 FIO2 30% SATURATION 97%. SOB AND ANXIOUS NOTED.BLOOD DRAW AND EKG DONE.
[2016-12-08 10:35] LABS: BASOPHILS # (AUTO) 0.4 K/uL (0.0-0.2); EOSINOPHILS % (AUTO) 0.1 % (0.0-4.0); HEMATOCRIT 45.7 % (36-54); HEMOGLOBIN 15.1 g/dL (14.0-18.0); LYMPHOCYTES # (AUTO) 1.7 K/uL (1.0-5.5); LYMPHOCYTES % (AUTO) 11.4 % (20.5-51.5); MEAN CORPUSCULAR HEMOGLOBIN 28 pg (27-31); MEAN CORPUSCULAR HGB CONC 33 % (32-36); MEAN CORPUSCULAR VOLUME 85 fL (79.0-98.0); MONOCYTES # (AUTO) 0.4 K/uL (0.0-1.0); MONOCYTES % (AUTO) 2.5 % (1.7-9.3); NEUTROPHILS # (AUTO) 12.4 K/uL (1.8-7.7); PLATELET COUNT (AUTO) 238 K/uL (130-430); RED BLOOD CELL COUNT(AUTO) 5.38 MIL/uL (4.2-6.2); RED CELL DISTRIBUTION WIDTH 13.4 % (9.0-15.0); WHITE BLOOD COUNT (AUTO) 14.9 K/uL (4.8-10.8)
[2016-12-08 10:41] LABS: CALCIUM 9.1 mg/dL (8.4-11.0); CREATININE 0.94 mg/dL (0.55-1.30); POTASSIUM 3.9 mmol/L (3.5-5.1)
[2016-12-08] MEDS ORDERED: ONDANSETRON HCL 4 MG/2 ML VIAL IVP ONE (10:45)
[2016-12-08 10:46] LABS: ALBUMIN 3.6 g/dL (3.4-4.8); TOTAL BILIRUBIN 0.3 mg/dL (0.0-1.0)
[2016-12-08] MEDS ORDERED: NACL 0.9% 1,000 ML IV ONE ×2 (13:30→13:45)
[2016-12-08] MEDS: methylPREDNISolone SOD SUCC/PF 62.5 MG/ML VIAL IVP SCH ×2 (13:59→21:03)
[2016-12-08] MEDS ORDERED: cefTRIAXone 1 GM VIAL IM ONE (14:00)
[2016-12-08] MEDS ORDERED: FUROSEMIDE 40 MG/4 ML VIAL IVP ONE (14:00)
[2016-12-08] MEDS ORDERED: AZITHROMYCIN 500 MG in NS 250 ML IV ONE (14:00)
--- NOTE | 2016-12-08 14:20 | NUR ---
notes: admit ordered entered by dr. olmedo. report given to Bia hubbard.
[2016-12-08] MEDS ORDERED: AZITHROMYCIN 500 MG/VIAL (ZITHROMAX) IV ONE (14:48)
--- NOTE | 2016-12-08 15:21 | NUR ---
ADMISSION: The patient, LUIS A BORJA, 66 y/o, M admitted by GISELE ORTIZ MD, was given written information regarding hospital policies, unit procedures and contact persons.
[2016-12-08 15:47] VITALS: BP_SYST 133
--- NOTE | 2016-12-08 15:57 | NUR ---
CONS FOR DR CASTRO FOR SOB MICAELA OBRIEN FROM EXCHANGE 12/08 AT 1600
[2016-12-08] MEDS: ALBUTEROL SULFATE 0.083% 2.5 MG/3 ML VIAL.NEB INH PRN ×2 (16:00→23:07)
--- NOTE | 2016-12-08 16:20 | NUR ---
BIPAP Patient having shortness of breath verbalized cant breath O2 sat on Ventimask 30% 92% mild wheezing , RT called kept on BIPAP 12/5 FIO2 30% BACK UP OF 20 explained to patient the need of machine to breath better agreed put by RT Mayela O2 saturation 95% will continue to monitor.
[2016-12-08 16:38] VITALS: BP_SYST 146
--- NOTE | 2016-12-08 17:30 | NUR ---
Seen and examined by Dr. Rasmussen , ABG done , kept patient on 2 liter/NC o2 saturation 95 patient is more relax no Shortness of breath will continue to monitor.
[2016-12-08 18:08] VITALS: BP_SYST 144
[2016-12-08] MEDS: IPRATROPIUM BROM 0.5 MG/2.5 ML VIAL.NEB (ATROVENT) INH SCH (19:43)
[2016-12-08] MEDS: ALBUTEROL SULFATE 0.083% 2.5 MG/3 ML VIAL.NEB INH SCH (19:43)
[2016-12-08 20:00] VITALS: BP_SYST 142
--- NOTE | 2016-12-08 20:00 | NUR ---
Initial Notes Received patient resting in bed, awake, alert, oriented. Patient denies any acute distress or pain at this time. Vital signs stable. Breathing is even, slightly labored on 2L NC, Bipap at bedside for PRN use. Patient refusing Bipap at this time. IV site patent/clean/dry. Educated patient on use of call light for assistance and fall precautions, patient verbalized understanding. Needs addressed. Call light in hand, will continue to monitor.
--- NOTE | 2016-12-08 22:00 | NUR ---
Rounds Patient resting in bed watching TV. Patient denies any acute distress or pain at this time. Breathing continues to be even but slightly labored with wheezing. Patient continues to refuse bipap when offered. IV site patent/clean/dry. Assisted patient to up to chair, snack given. Needs addressed. Call light in hand, will continue to monitor.
--- NOTE | 2016-12-08 23:06 | NUR ---
Rounds Assisted patient back to bed. Patient agreeing to be placed back on bipap, RT paged. Security called x3 to lower patient's AC in room. Needs addressed. Call light in hand, will continue to monitor.
--- NOTE | 2016-12-08 23:23 | NUR ---
Refused Bipap Patient refusing bipap when RT in room, requesting for breathing treatment instead. Patient in no acute distress, will continue to monitor.
--- NOTE | 2016-12-09 | NUR ---
Rounds Patient resting in bed, awake. Patient denies any acute distress or pain at this time. Breathing is even and unlabored on 2L NC, refusing bipap when offered. IV site patent/clean/dry. Needs addressed. Call light in hand, fall precautions in place.
[2016-12-09 00:36] VITALS: BP_SYST 128
[2016-12-09] MEDS: IPRATROPIUM BROM 0.5 MG/2.5 ML VIAL.NEB (ATROVENT) INH SCH ×4 (01:00→19:16)
[2016-12-09] MEDS: ALBUTEROL SULFATE 0.083% 2.5 MG/3 ML VIAL.NEB INH SCH ×4 (01:00→19:17)
--- NOTE | 2016-12-09 02:15 | NUR ---
Rounds Patient resting in bed with eyes closed. No acute distress noted, breathing is even and unlabored. IV site patent/clean/dry. Call light in hand, will continue to monitor.
[2016-12-09 04:03] VITALS: BP_SYST 135
--- NOTE | 2016-12-09 04:17 | NUR ---
Rounds Patient resting in bed watching TV. Patient denies any acute distress or pain at this time. Breathing is even and unlabored. Snack given to patient per request. Needs addressed. Call light in hand, will continue to monitor.
[2016-12-09] MEDS: ALBUTEROL SULFATE 0.083% 2.5 MG/3 ML VIAL.NEB INH PRN ×3 (04:21→22:35)
[2016-12-09] MEDS: methylPREDNISolone SOD SUCC/PF 62.5 MG/ML VIAL IVP SCH ×3 (05:14→21:46)
--- NOTE | 2016-12-09 06:33 | NUR ---
Closing Notes Patient resting in bed, awake. Patient denies any acute distress or pain at this time. Breathing is even and unlabored on 2L NC, patient has not needed bipap entire shift. IV site patent/clean/dry. Needs addressed throughout shift. Call light in hand, fall precautions in place. Will continue to monitor for changes and safety, and endorse all patient care/needs to oncoming nurse.
[2016-12-09 07:45] LABS: BASOPHILS % (AUTO) 0.2 % (0.0-2.0); HEMATOCRIT 44.2 % (36-54); HEMOGLOBIN 14.4 g/dL (14.0-18.0); LYMPHOCYTES % (AUTO) 8.1 % (20.5-51.5); MEAN CORPUSCULAR HEMOGLOBIN 28 pg (27-31); MEAN CORPUSCULAR HGB CONC 33 % (32-36); MEAN CORPUSCULAR VOLUME 85 fL (79.0-98.0); MONOCYTES # (AUTO) 0.3 K/uL (0.0-1.0); NEUTROPHILS # (AUTO) 11.4 K/uL (1.8-7.7); NEUTROPHILS % (AUTO) 89.7 % (40.0-70.0); PLATELET COUNT (AUTO) 227 K/uL (130-430); RED BLOOD CELL COUNT(AUTO) 5.18 MIL/uL (4.2-6.2); RED CELL DISTRIBUTION WIDTH 13.3 % (9.0-15.0); WHITE BLOOD COUNT (AUTO) 12.7 K/uL (4.8-10.8)
[2016-12-09 08:00] VITALS: BP_SYST 132
--- NOTE | 2016-12-09 08:00 | NUR ---
OPENING NOTE PATIENT IS ANXIOUS. LABORED BREATHING. O2 SATURATION 90% ON 3LPM. RT CALLED FOR BREATHING TX. WHEEZING THROUGHOUT LUNGS
[2016-12-09] MEDS: ENOXAPARIN SODIUM 30 MG/0.3 ML SYRINGE SUBCUT SCH (08:17)
[2016-12-09] MEDS: AZITHROMYCIN 500 MG in NS 250 ML IV SCH (08:18)
[2016-12-09] MEDS: cefTRIAXone 1 GM IVPB PREMIX 50 ML IV SCH (08:18)
--- NOTE | 2016-12-09 08:26 | NUR ---
Nutrition Update Tyrone Scale 16 noted. Pt admitted for COPD Exacerbation. Diet: 2gm Na diet. BMI: 30.3 kg/m2 RD to follow per nutrition care standards.
--- NOTE | 2016-12-09 10:20 | NUR ---
PATIENT REQUESTING BREATHING TX. APPEARS ANXIOUS, O2 SAT 91% ON 3LPM
[2016-12-09] MEDS ORDERED: BUDESONIDE 0.5 MG/2 ML AMPUL.NEB INH ONE (11:30)
[2016-12-09 12:13] VITALS: BP_SYST 142
[2016-12-09 15:19] VITALS: BP_SYST 128
--- NOTE | 2016-12-09 15:38 | NUR ---
PATIENT REQUESTING BREATHING TX. APPEARS ANXIOUS. AMBULATES SANS O2 TO RESTROOM WITH GERIATRIC NURSE PRACTITIONER AND O2 WAS NOTED TO BE 80% ON MONITOR. IS NOW SOB AND STRUGGLING TO SPEAK IN FULL SENTENCES.
[2016-12-09] MEDS ORDERED: NACL 0.9% 1,000 ML IV SCH (16:45)
[2016-12-09] MEDS ORDERED: LORazepam 2 MG/ML VIAL IM ONE (17:00)
[2016-12-09] MEDS: NACL 0.9% 1,000 ML IV SCH (18:05)
--- NOTE | 2016-12-09 18:06 | NUR ---
NURSING JUDGEMENT PATIENT ANXIOUS SECONDARY TO WHEEZING AND DROP IN O2 SATURATIONS. WILL NOT ADMIN ATIVAN WHILE O2 SATURATIONS ARE LOW AND PATIENT IS HAVING SHORTNESS OF BREATH OR LABORED BREATHING. SPOKE W MD AT BEDSIDE REGARDING THIS. PT STARTED ON IV FLUIDS PER SEPSIS PROTOCOL. BREATHING TX ADMINISTERED AT NC REQUEST. IMPROVEMENT IN O2 SATURATIONS NOTED IMMEDIATELY.
[2016-12-09] MEDS: BUDESONIDE 0.5 MG/2 ML AMPUL.NEB INH SCH (19:17)
[2016-12-09 19:50] VITALS: BP_SYST 151
--- NOTE | 2016-12-09 20:00 | NUR ---
NOTES; Received Pt sitting up in bed. A/A/O X4. Patient denies any acute distress or pain at this time. Vital signs stable, afebrile. Labored breathing noted. on 2L NC, RT at bedside to administer breathing treatment. Bipap at bedside for PRN use. IV site clean,dry and intact with ordered ivf infusing well. No signs of infection noted. Educated patient on use of call light to call for any need to assist. Pt verbalized understanding. Pt denies any pain at this time. fall precautions in place. Needs addressed. Bed locked and in low position, side rails up x3 bed alarm on. Call light in hand, will continue to monitor.
[2016-12-10] VITALS: BP_SYST 147
--- NOTE | 2016-12-10 | NUR ---
NOTES; RT PLACED BIPAP ON PT. PT IS TOLERATING BIPAP WELL. WILL CONTINUE TO MONITOR. Addendum: 12/10/16 at 0506 by Viviana Watkins LVN WRONG TIME ENTRY. ACTUAL TIME WAS 0036
--- NOTE | 2016-12-10 00:25 | NUR ---
NOTES; PT IS SHORT OF BREATH AND WHEEZING, A BIT ANXIOUS. O2 SAT 83% ON O2 2L NASAL CANULA. SAT PT UPRIGHT IN BED. REMAINED WITH PT AND CALLED RT. RT AT BEDSIDE, BREATHING TREATMENT ONGOING. ON SAT 94% AT THIS TIME WITH ONGOING BREATHING TREATMENT. WILL CONTINUE TO MONITOR.
--- NOTE | 2016-12-10 01:19 | NUR ---
NOTES SAFETY MEASURES IN PROGRESS.
[2016-12-10] MEDS: ALBUTEROL SULFATE 0.083% 2.5 MG/3 ML VIAL.NEB INH SCH ×3 (01:21→19:52)
[2016-12-10] MEDS: IPRATROPIUM BROM 0.5 MG/2.5 ML VIAL.NEB (ATROVENT) INH SCH ×3 (01:21→19:52)
--- NOTE | 2016-12-10 02:00 | NUR ---
NOTES; Pt is resting in bed quietly, eyes closed. Pt is tolerating Bipap well. IV site patent/clean/dry. Call light in hand, safety measures in progress. will continue to monitor.
--- NOTE | 2016-12-10 04:00 | NUR ---
NOTES; PT C/O OF MOUTH DRYNESS WITH REQUEST OF JUICE . ORANGE JUICE AND WATER PROVIDED.
[2016-12-10] MEDS: NACL 0.9% 1,000 ML IV SCH ×2 (04:27→21:37)
[2016-12-10 04:47] VITALS: BP_SYST 149
--- NOTE | 2016-12-10 05:00 | NUR ---
NOTES; PT IS SLEEPING QUIETLY. NO ACUTE DISTRESS OR SOB NOTED. PT REMAIN ON BIPAP AND TOLERATING WELL. SAFETY MEASURES IN PROGRESS. WILL CONTINUE TO MONITOR.
[2016-12-10] MEDS: methylPREDNISolone SOD SUCC/PF 62.5 MG/ML VIAL IVP SCH ×3 (05:45→21:37)
--- NOTE | 2016-12-10 06:45 | NUR ---
NOTES; AWAKE, IN BED. STILL ON BIPAP AND TOLERATING WELL. VITAL SIGNS STABLE, AFEBRILE. DENIES ANY PAIN AT THIS TIME. ALL NEEDS ATTENDED. SAFETY MEASURES MAINTAINED.
[2016-12-10 07:01] LABS: BASOPHILS % (AUTO) 0.2 % (0.0-2.0); HEMATOCRIT 40.2 % (36-54); HEMOGLOBIN 13.6 g/dL (14.0-18.0); LYMPHOCYTES % (AUTO) 4.7 % (20.5-51.5); MEAN CORPUSCULAR HEMOGLOBIN 29 pg (27-31); MEAN CORPUSCULAR HGB CONC 34 % (32-36); MEAN CORPUSCULAR VOLUME 85 fL (79.0-98.0); MONOCYTES # (AUTO) 0.3 K/uL (0.0-1.0); MONOCYTES % (AUTO) 1.6 % (1.7-9.3); NEUTROPHILS # (AUTO) 19.6 K/uL (1.8-7.7); NEUTROPHILS % (AUTO) 93.5 % (40.0-70.0); PLATELET COUNT (AUTO) 209 K/uL (130-430); RED BLOOD CELL COUNT(AUTO) 4.72 MIL/uL (4.2-6.2); WHITE BLOOD COUNT (AUTO) 20.9 K/uL (4.8-10.8)
[2016-12-10 07:44] LABS: CALCIUM 8.7 mg/dL (8.4-11.0); CREATININE 0.95 mg/dL (0.55-1.30); POTASSIUM 4.1 mmol/L (3.5-5.1)
[2016-12-10] MEDS: BUDESONIDE 0.5 MG/2 ML AMPUL.NEB INH SCH ×2 (07:48→20:03)
[2016-12-10 07:52] LABS: ALBUMIN 3.4 g/dL (3.4-4.8); TOTAL BILIRUBIN 0.4 mg/dL (0.0-1.0)
[2016-12-10 08:00] VITALS: BP_SYST 150
--- NOTE | 2016-12-10 08:30 | NUR ---
PATIENT REQUESTING TO BE REMOVED FROM BIPAP TO EAT BREAKFAST. REMAINS SOB
[2016-12-10] MEDS: AZITHROMYCIN 500 MG in NS 250 ML IV SCH (09:42)
[2016-12-10] MEDS: ENOXAPARIN SODIUM 30 MG/0.3 ML SYRINGE SUBCUT SCH (09:42)
[2016-12-10] MEDS: cefTRIAXone 1 GM IVPB PREMIX 50 ML IV SCH (09:43)
--- NOTE | 2016-12-10 10:03 | NUR ---
PATIENT REQUESTING RT. RT PAGED TO ROOM
--- NOTE | 2016-12-10 12:45 | NUR ---
PATIENT REMOVED BIPAP TO EAT LUNCH. WAS NOTED NOT TO HAVE O2 ON. REMINDED PATIENT IT IS IMPORTANT TO HAVE O2 ON HIM AT ALL TIMES.
--- NOTE | 2016-12-10 13:18 | NUR ---
PATIENT IS BANGING ON HIS BED RAIL FOR ASSISTANCE IN REPLACING HIS BIAPAP. WHEN IT WAS RIPPED OFF IT CAME APART. RT PAGED FOR ASSISTANCE WITH BIPAP
[2016-12-10 13:22] VITALS: BP_SYST 146
--- NOTE | 2016-12-10 14:12 | NUR ---
PATIENT CLEANED OF BEDPAN CONTENTS BY RN. REMAINS STABLE ON BIPAP MACHINE. REMINDED PATIENT HE NEEDED THAT ON MORE THAN HE NEEDS HIS FOOD AT THIS TIME.
--- NOTE | 2016-12-10 15:02 | NUR ---
PATIENT ASKED RT TO REMOVE HIS BIPAP SO HE COULD EAT. REQUESTED SHE RETURN IN 30 MIN TO REPLACE IT
--- NOTE | 2016-12-10 15:15 | NUR ---
PATIENT CALLING FOR RN OR GREASE PACKER TO REPLACE HIS BIPAP. INFORMED PT I WOULD NOT BE TAKING BIPAP OFF FOR DINNER HE DOES NOT TOLERATE BREATHING WITHOUT THE MACHINE'S ASSISTANCE. ASSURED HIM WE WOULD NOT LET HIM GO HUNGRY, HOWEVER AT THIS TIME ALWAYS BREATHING IS MORE IMPORTANT THAN ONE MISSED MEAL.
--- NOTE | 2016-12-10 15:53 | NUR ---
PATIENT SLEEPING NO SIGNS OF DISTRESS
[2016-12-10 16:00] VITALS: BP_SYST 149
[2016-12-10 20:00] VITALS: BP_SYST 129
--- NOTE | 2016-12-10 20:00 | NUR ---
Rounds Received patient lying in bed resting, denies of any pain, no acute distress noted. Bi pap in place. IV site checked intact and patent. Instructed patient to call nurse when getting out of bed call light within reach, bed alarm on. will continue to monitor patient.
--- NOTE | 2016-12-10 22:00 | NUR ---
Rounds Patient resting no acute distress noted call light within reach, bed alarm on.
[2016-12-11] VITALS (9 sets, daily range): BP systolic 136–175
--- NOTE | 2016-12-11 01:16 | NUR ---
Notes Snack provided per patient request, ate 30%.
[2016-12-11] MEDS: ALBUTEROL SULFATE 0.083% 2.5 MG/3 ML VIAL.NEB INH SCH ×4 (01:29→19:57)
[2016-12-11] MEDS: IPRATROPIUM BROM 0.5 MG/2.5 ML VIAL.NEB (ATROVENT) INH SCH ×4 (01:29→19:57)
--- NOTE | 2016-12-11 04:13 | NUR ---
Rounds Patient resting quietly, no sob noted. call light within reach.
[2016-12-11] MEDS: NACL 0.9% 1,000 ML IV SCH ×2 (05:28→18:30)
[2016-12-11] MEDS: methylPREDNISolone SOD SUCC/PF 62.5 MG/ML VIAL IVP SCH ×3 (05:28→21:30)
--- NOTE | 2016-12-11 06:42 | NUR ---
Closing notes Patient resting quietly at this time, no acute respiratory distress noted, O2 saturation 95% on Bi pap at this time.
[2016-12-11 06:52] LABS: BASOPHILS % (AUTO) 0.1 % (0.0-2.0); HEMATOCRIT 39.7 % (36-54); HEMOGLOBIN 13.3 g/dL (14.0-18.0); LYMPHOCYTES # (AUTO) 0.6 K/uL (1.0-5.5); LYMPHOCYTES % (AUTO) 3.1 % (20.5-51.5); MEAN CORPUSCULAR HEMOGLOBIN 29 pg (27-31); MEAN CORPUSCULAR HGB CONC 34 % (32-36); MEAN CORPUSCULAR VOLUME 86 fL (79.0-98.0); MONOCYTES # (AUTO) 0.4 K/uL (0.0-1.0); MONOCYTES % (AUTO) 2.2 % (1.7-9.3); NEUTROPHILS # (AUTO) 18.4 K/uL (1.8-7.7); NEUTROPHILS % (AUTO) 94.6 % (40.0-70.0); PLATELET COUNT (AUTO) 210 K/uL (130-430); RED BLOOD CELL COUNT(AUTO) 4.63 MIL/uL (4.2-6.2); RED CELL DISTRIBUTION WIDTH 13.4 % (9.0-15.0); WHITE BLOOD COUNT (AUTO) 19.4 K/uL (4.8-10.8)
[2016-12-11 07:25] LABS: ALBUMIN 3.1 g/dL (3.4-4.8); CALCIUM 8.4 mg/dL (8.4-11.0); CREATININE 0.81 mg/dL (0.55-1.30); POTASSIUM 4.2 mmol/L (3.5-5.1); TOTAL BILIRUBIN 0.4 mg/dL (0.0-1.0)
--- NOTE | 2016-12-11 07:50 | NUR ---
AM Rounds: Pt sitting high fowlers in bed. No acute signs of distress noted. Pt saturating well 97% on BiPAP. A&Ox4. IV intact to LUE and infusing ordered fluids well. Pt denies pain and SOB. Call light in reach. Fall precautions in place. Pt is able to make needs know and verbalize understanding. Continue to monitor.
[2016-12-11] MEDS: BUDESONIDE 0.5 MG/2 ML AMPUL.NEB INH SCH ×2 (07:58→20:13)
[2016-12-11] MEDS: cefTRIAXone 1 GM IVPB PREMIX 50 ML IV SCH (08:43)
[2016-12-11] MEDS: ENOXAPARIN SODIUM 30 MG/0.3 ML SYRINGE SUBCUT SCH (08:44)
[2016-12-11] MEDS: AZITHROMYCIN 500 MG in NS 250 ML IV SCH (09:33)
--- NOTE | 2016-12-11 09:44 | NUR ---
RN Rounds: AM meds given per MD order. No acute signs of distress noted at this time. Pt saturating well on BiPAP 98% O2 sat. Call light in lap. No other needs noted. Continue to monitor.
[2016-12-11] MEDS ORDERED: ACETAMINOPHEN 325 MG TABLET PO PRN (11:45)
--- NOTE | 2016-12-11 11:50 | NUR ---
Rounds Patient taken off bipap. changed to 3l nasal cannula o2 sat 96%. RT at bedside to draw ABG, unsuccessful. will try at later time. patient complains of chest pain upon inspiration. Dr Rasmussen here aware the patient is c/o chest pain. New order for Tylenol noted. Fall precautions in place, bed alarm on, bed in lowest position, side rails x2, call light within reach.
--- NOTE | 2016-12-11 12:10 | NUR ---
Pain medication Pt given pain medication for chest discomfort on inspiration. Pt educated on side effects. Verbalizes understanding. Pt assisted with lunch tray by bedside. Pt continues to be off bipap on 2L O2. O2 sat 96%. Call light within reach. Continue to monitor.
--- NOTE | 2016-12-11 13:07 | NUR ---
O2 Sat Drop/BiPAP: Pt desaturate to 88% on 3L via NC. Pt c/o SOB, patient tachypneic and gasping for air. Pt placed back on BiPAP. Pt is able to calm himself down. Pt states "Ok I feel better now". Call light in lap. Continue to monitor pt closely.
--- NOTE | 2016-12-11 14:50 | NUR ---
RN round Patient assisted to bedpan, patient position adjusted . Pt continues on bipap. Pt denies any other needs at this time. Safety precautions in place. Bed in lowest position. Call carlin within reach. Continues to monitor.
--- NOTE | 2016-12-11 15:43 | NUR ---
Round Pt in bed with eyes open. Pt ABG drawn. Pt off bipap.Os sat 97% on 3 L o2. Pt does not have any other needs at this time. Safety precautions in place. call light within reach. Continue to monitor.
--- NOTE | 2016-12-11 15:50 | NUR ---
Case Mgt: Rec'd call from ZHAO Jacobs at [facility]-reviewed case with him-pt has orders for downgrade to Med/surg--Contact Reynaldo for any discharge planning needs at [phone]-- --trk#[id number]--RR RN
[2016-12-11] MEDS: LORazepam 1 MG TABLET PO PRN (16:39)
--- NOTE | 2016-12-11 16:42 | NUR ---
Medication note Pt PRN ativan given. side effects explained. pt verbalizes understanding. Pt still off bipap, O2 sat 96% on 3L. O2 turned down to 1.5L. pt voices no other needs at this time. Safety, fall precautions in place. Bed lowest position, call light within reach. Continues to monitor.
--- NOTE | 2016-12-11 18:30 | NUR ---
notes received the pt from the day nurse,pt a/a/ox4 no c/o difficulty breathing.assisted to the bathroom and voided ,also had a bm.respiratory therapist called to put the bipap on the pt.iv intact to lt forearm ,no redness or swelling noted.call light within reach ,safety measures in progress.continue to monitor.
--- NOTE | 2016-12-11 18:46 | NUR ---
Closing note Patient in bed, family at bedside. Patient NS IV given. No adverse effects noted. Pt request to ambulate to bathroom. Pt assisted to ambulate to bathroom on 2 L O2. Patient tolerates it well. No injury noted this shift. Patient safety and goals met for the shift. Patient not in acute distress. patient tolerating O2 by nasal canula o2 sat at 94%. pt off Bipap by end of shift. Report will be given to next shift.
--- NOTE | 2016-12-11 19:09 | NUR ---
Closing note Pt goals for this shift met. tolerates treatment well. including new ordered antibiotics well. No injury noted on patient. Pt family member by bedside this shift. pt denies any shift. No acute distress noted. Pt safely uses bedside commode this shift. Will pass report to next shift.
--- NOTE | 2016-12-11 21:30 | NUR ---
notes pt took the bipap off and states he can not breath respiratory called pt taken to the bathroom and voided ,also had another bm.assisted back to bed.respiratory therapist is at the bedside and replaced the bipap.
--- NOTE | 2016-12-11 23:35 | NUR ---
notes pt sleeping with bipap on appears comfortable.continue to monitor.
[2016-12-12] MEDS: ALBUTEROL SULFATE 0.083% 2.5 MG/3 ML VIAL.NEB INH SCH ×4 (00:23→21:52)
[2016-12-12] MEDS: IPRATROPIUM BROM 0.5 MG/2.5 ML VIAL.NEB (ATROVENT) INH SCH ×4 (00:24→21:52)
--- NOTE | 2016-12-12 01:30 | NUR ---
notes bipap alarm going off ,pt asleep and did not know the mask had fallen off,mask replaced.pt returns to sleep.
--- NOTE | 2016-12-12 03:23 | NUR ---
notes pulse ox 83 ,went to check the pt who is standing at the bedside with his iv out .blood all over his gown and the nasal canula on the floor.linen changed. pt educated on calling for help if he needs anything.assisted back to bed RN is at the bedside to reinsert the iv.
--- NOTE | 2016-12-12 03:35 | NUR ---
notes new iv inserted by the RN into lt forearm with a #22 angio.
[2016-12-12 04:00] VITALS: BP_SYST 145
--- NOTE | 2016-12-12 05:24 | NUR ---
notes pt resting,call light within reach,continue to monitor.
[2016-12-12] MEDS: methylPREDNISolone SOD SUCC/PF 62.5 MG/ML VIAL IVP SCH ×3 (05:33→21:07)
--- NOTE | 2016-12-12 06:31 | NUR ---
closing notes pt resting with bipap in place.no sob noted.will endorse the care of the pt to the day nurse.
--- NOTE | 2016-12-12 08:00 | NUR ---
INITIAL NOTE PT SITTING UP IN BED, ALERT AND ORIENTED, EATING BREAKFAST, NASAL CANULA IN PLACE WITH O2 AT 3 LITERS, VSS, NO S/S OF ACUTE RESPIRATORY DISTRESS OR PAIN AT THIS TIME, IV FLUIDS INFUSING TO LFA AT ORDERED RATE, SITE PATENT AND INTACT, PLAN OF CARE DISCUSSED, PT VERBALIZED UNDERSTANDING, PT ORIENTED TO USE OF CALL LIGHT AND IT IS PLACED WITHIN REACH, SAFETY MEASURES IN PLACE BED ALARM ON PER REPORT PT IS FORGETFUL AND IV PULLED OUT DURING EVENING, PT AGREES, WILL CONTINUE TO MONITOR PT CLOSELY
[2016-12-12 08:04] VITALS: BP_SYST 154
[2016-12-12] MEDS: BUDESONIDE 0.5 MG/2 ML AMPUL.NEB INH SCH ×2 (08:18→21:57)
[2016-12-12] MEDS: ENOXAPARIN SODIUM 30 MG/0.3 ML SYRINGE SUBCUT SCH (08:19)
[2016-12-12] MEDS: cefTRIAXone 1 GM IVPB PREMIX 50 ML IV SCH (08:19)
[2016-12-12] MEDS: NACL 0.9% 1,000 ML IV SCH ×3 (08:20→21:08)
[2016-12-12] MEDS: AZITHROMYCIN 500 MG in NS 250 ML IV SCH (09:19)
[2016-12-12] MEDS: LORazepam 1 MG TABLET PO PRN ×2 (09:20→21:07)
--- NOTE | 2016-12-12 09:45 | NUR ---
ROUNDS PT ASSISTED TO RESTROOM, RETURNED TO BED AND PLACED ON BIPAP, NOTED EXERTION WITH WALK TO RESTROOM, ADMINISTERED ATIVAN FOR ANXIETY PER PATIENT REPORT OF FEELING ANXIOUS, BED ALARM TURNED ON, CALL LIGHT WITHIN REACH, CAN SORTER AT BEDSIDE FOR HYGIENE AND CHANGE OF SHEETS/GOWN, WILL CONTINUE TO MONITOR PT CLOSELY
--- NOTE | 2016-12-12 10:50 | NUR ---
DR CASTRO MAKING ROUNDS PER MD PT REQUESTING TO BE BIPAP AT THIS TIME, MD ASKED WHY PT IS ON BIPAP AND SOMETIMES NOTE, MD MADE AWARE THAT PT REMOVES NASAL CANULA AT TIMES AND BECOMES SOB AND ANXIOUS, AND REQUESTS BIPAP AT THESE TIMES, PT REMOVED ROM BIPAP AT THIS TIME, GIVEN BREATHING TREATMENT AND PLACED ON NASAL CANULA AT 3 LITERS, NO S/S OF RESPIRATORY DISTRESS AT THIS TIME, PT STATING AT 97%, SAFETY MEASURES IN PLACE, CALL LIGHT WITHIN REACH, WILL FOLLOW UP
[2016-12-12 12:55] VITALS: BP_SYST 160
--- NOTE | 2016-12-12 12:56 | NUR ---
ROUNDS PT UP, USING URINAL, NOTED TO BE SOB, PT ASSISTED BACK IN BED, NASAL CANULA IN PLACE O2 AT 3 LITERS, STATING AT 94%, PT ENCOURAGED TO COUGH AND DEEP BREATH, TRY TO REMAIN CALM, CALL LIGHT WITHIN REACH, WILL CONTINUE TO MONITOR CLOSELY
--- NOTE | 2016-12-12 15:00 | NUR ---
ROUNDS PT SITTING UP IN BED, NO S/S OF DISTRESS OR PAIN, NASAL CANULA IN PLACE, IV FLUIDS INFUSING, PT DENIES ANY NEEDS AT THIS TIME, SAFETY MEASURES IN PLACE, CALL LIGHT WITHIN REACH, WILL CONTINUE TO MONITOR
[2016-12-12 16:16] VITALS: BP_SYST 155
--- NOTE | 2016-12-12 17:00 | NUR ---
ROUNDS PT SITTING UP IN BED, EATING DINNER, NO S/S OF RESPIRATORY DISTRESS, URINAL EMPTIED AND PLACED IN HAHN, WILL FOLLOW UP
--- NOTE | 2016-12-12 18:58 | NUR ---
CLOSING NOTE PT RETURNED TO BED FROM RESTROOM, RT AT BEDSIDE TO PLACE BIPAP PER PT REQUEST, IV FLUIDS INFUSING TO LFA, ALL NEEDS ATTENDED TO THROUGHOUT SHIFT, SAFETY MEASURES MAINTAINED, CALL LIGHT WITHIN REACH, WILL GIVE REPORT TO FOLLOWING SHIFT
--- NOTE | 2016-12-12 20:00 | NUR ---
Initial Note Received patient awake, alert and oriented with periods of forgetfulness and restless at times. SOB upon exertion. on BIPAP. No complain of pain or n/v at this time. IVF infusing. SKin intact. No peripheral edema. Unsteady gait. Bed alarm on at all times. Coughs occasionally non productive. Advised to stay in bed but patient is restless at times. Needs to be reminded. Needs attended. Call light within reach. Kept warm and comfortable.
[2016-12-12 20:20] VITALS: BP_SYST 152
--- NOTE | 2016-12-12 21:00 | NUR ---
RN Note Patient gets up and restless. Bed alarm keeps on beeping. Medicated for restlessness along with due meds. Will continue to monitor. Uses urinal 3x. Needs attended. Kept warm and comfortable.
--- NOTE | 2016-12-12 22:00 | NUR ---
RN Note Awake and alert. On BIPAP. Given snack per patient's request.
[2016-12-13] VITALS (8 sets, daily range): BP systolic 148–170
--- NOTE | 2016-12-13 00:40 | NUR ---
RN Note Patient removed his BIPAP and doesn't want to put it back. Placed him on O2 at 2.5 L/min via NC. Turned off BIPAP for now. Will continue to monitor.
[2016-12-13] MEDS: IPRATROPIUM BROM 0.5 MG/2.5 ML VIAL.NEB (ATROVENT) INH SCH ×4 (01:12→19:49)
[2016-12-13] MEDS: ALBUTEROL SULFATE 0.083% 2.5 MG/3 ML VIAL.NEB INH SCH ×4 (01:12→19:49)
--- NOTE | 2016-12-13 02:00 | NUR ---
RN Note Patient is restless and can't sleep. He wants to sit on a chair. REmoves his BIPAP and refused to have it on. Placed him on O2 at 2L/min via NC. Stayed with the patient in the room. Unsteady gait.
--- NOTE | 2016-12-13 03:00 | NUR ---
RT NOTES PT REFUSED BIPAP AT THIS TIME. PT PLACED ON 2L NC. RN AWARE.
--- NOTE | 2016-12-13 04:00 | NUR ---
RN Note Patient asleep at this time. On BIPAP.
[2016-12-13] MEDS: methylPREDNISolone SOD SUCC/PF 62.5 MG/ML VIAL IVP SCH ×3 (05:05→21:28)
--- NOTE | 2016-12-13 06:33 | NUR ---
End Note Afebrile. Vital signs stable. SBP on the 150's and 160's. No complain of pain or n/v all night but very restless and can't sleep. He removes his BIPAP several times and RT was aware. Transfers himself to the bedside chair and back to bed several times. He changed on to his clothes. SOB on exertion. Placed on O2 at 2L/min via NC whenever he removes his BIPAP. IVF infusing. Emotional support given. Needs attended. Kept warm and comfortable.
[2016-12-13] MEDS: NACL 0.9% 1,000 ML IV SCH ×2 (06:47→18:05)
--- NOTE | 2016-12-13 07:20 | NUR ---
Initial notes: patient on bed resting with BIPAP. Observed having SOB. Discussed plan of care. Pt verbalized of going home. Call light within reach.
[2016-12-13] MEDS: cefTRIAXone 1 GM IVPB PREMIX 50 ML IV SCH (08:15)
[2016-12-13] MEDS: ENOXAPARIN SODIUM 30 MG/0.3 ML SYRINGE SUBCUT SCH (08:21)
--- NOTE | 2016-12-13 08:29 | NUR ---
ROUNDS: Patient eating breakfast. Placed on Oxygen @2l. via NC. After eating wants to be back on BIPAP. Observed having labor breathing.
[2016-12-13] MEDS: BUDESONIDE 0.5 MG/2 ML AMPUL.NEB INH SCH ×2 (08:34→19:49)
[2016-12-13] MEDS: AZITHROMYCIN 500 MG in NS 250 ML IV SCH (09:24)
--- NOTE | 2016-12-13 09:56 | NUR ---
Anxiety: patient became restless, keep on standing up. Ativan .5mg P.O. given to calm him down.
--- NOTE | 2016-12-13 10:46 | NUR ---
Behavior: Patient seen by Melisa. He wants to go home. After Segun left. he got mad. Removed BIPAP. Sit on the chair. Placed Oxygen 2l via NC. Observed labor breathing.
[2016-12-13] MEDS ORDERED: THEOPHYLLINE ANHYDROUS 300 MG TAB.SR.12H PO ONE (11:00)
--- NOTE | 2016-12-13 11:17 | NUR ---
Labored breathing: Patient went to sleep with Oxygen @2l. n.c. labored breathing . Oxygen saturation 96%. Refused BIPAP.
[2016-12-13] MEDS: ALBUTEROL SULFATE 0.083% 2.5 MG/3 ML VIAL.NEB INH PRN (11:23)
--- NOTE | 2016-12-13 12:00 | NUR ---
rounds: patient sitting on the floor using Oxygen via nc @2l. Trying to weane himself.
--- NOTE | 2016-12-13 14:00 | NUR ---
rounds: patient sleeping on bed with BIPAP.
--- NOTE | 2016-12-13 17:15 | NUR ---
rounds: patient sitting on the chair without oxygen. He verbalized he will put it back.
--- NOTE | 2016-12-13 18:07 | NUR ---
rounds: patient eating dinner without oxygen. Tolerated well.
--- NOTE | 2016-12-13 18:30 | NUR ---
rounds: patient uses the BIPAP observed having difficulty breathing after using the bathroom.
--- NOTE | 2016-12-13 19:05 | NUR ---
Initial Rounds Received patient sitting in bed trying to fix his bipap. Patient is awake, alert, oriented x4. SOB noted, assisted to reinstall bipap. IV noted to L f/a g22 , no infiltrate and with good blood return. All extremities are strong, BRP. Discussed plan of care with patient and verbalized understanding. Call light in reach, will cont to monitor.
--- NOTE | 2016-12-13 19:34 | NUR ---
closing notes: patient on BIPAP. Stable. Labored breathing observed. Needs attended. Call light within reach. Report given to Lyndon gas engineer RN.
--- NOTE | 2016-12-13 20:38 | NUR ---
RT NOTES PT REFUSED BIPAP AT THIS TIME.PT PLACED ON 3L NC. RN MADE AWARE.
--- NOTE | 2016-12-13 21:05 | NUR ---
Rounds Patient is resting at this time. No s/s of any distress noted. Patient is non compliant refused to put his 02 monitor. Explain risk and benefits but still refused. Call light in reach, will cont to monitor.
--- NOTE | 2016-12-13 23:05 | NUR ---
Rounds Patient is resting at this time. Patient removed his O2 monitor x2. Reminded about risk and benefits but ignored nurses and went back to sleep. Placed call light in reach, will cont to monitor.
--- NOTE | 2016-12-14 01:05 | NUR ---
Rounds Patient is resting at this time. Patient is off from his O2 monitor. V/S are wnl. Call light in reach, will cont to monitor.
[2016-12-14] MEDS: IPRATROPIUM BROM 0.5 MG/2.5 ML VIAL.NEB (ATROVENT) INH SCH ×4 (01:16→19:22)
[2016-12-14] MEDS: ALBUTEROL SULFATE 0.083% 2.5 MG/3 ML VIAL.NEB INH SCH ×4 (01:16→19:21)
--- NOTE | 2016-12-14 03:05 | NUR ---
Rounds Patient is resting at this time. Patient refused to put his nasal cannula at this time. Explained risk and benefits but still refuse . Placed call light in reach, will cont to monitor.
[2016-12-14 03:42] VITALS: BP_SYST 150
--- NOTE | 2016-12-14 04:53 | NUR ---
Refused IV Patient old IV was accidentally dislodge while sleeping. Patient refuse to have another IV started. Explain to patient risk and benefits but but still non compliant. "Dont worry, I will speak to the doctor", he said. Respect patient decision.
[2016-12-14] MEDS: BUDESONIDE 0.5 MG/2 ML AMPUL.NEB INH SCH ×2 (07:57→19:21)
--- NOTE | 2016-12-14 08:00 | NUR ---
AM SHIFT NOTE: RECEIVED PT A/O X 4, C/O DIFFICULTY OF BREATH, O2/NC/4 L, NO IV ACCESS AT THIS TIME, 2G NA DIET, SKIN INTACT, AMBULATED WELL , VOIDING, BED AT LOWEST POSITION, CALL LIGHT WITHIN REACH.
[2016-12-14] MEDS: THEOPHYLLINE ANHYDROUS 300 MG TAB.SR.12H PO SCH (08:16)
[2016-12-14] MEDS: methylPREDNISolone SOD SUCC/PF 62.5 MG/ML VIAL IVP SCH ×2 (08:16→21:16)
[2016-12-14] MEDS: cefTRIAXone 1 GM IVPB PREMIX 50 ML IV SCH (08:16)
[2016-12-14] MEDS: ENOXAPARIN SODIUM 30 MG/0.3 ML SYRINGE SUBCUT SCH (08:17)
--- NOTE | 2016-12-14 08:30 | NUR ---
IV RE-INSERTION: NO IV site. Restarted on right hand. Successful after 1 attempt. Resumed current IVF. Will observe for any signs of infiltration.
--- NOTE | 2016-12-14 08:45 | NUR ---
Meds: Routine meds given, pt tolerated well.
--- NOTE | 2016-12-14 10:30 | NUR ---
RT TREATMENT: HAD BREATHING TREATMENT.
[2016-12-14 12:28] VITALS: BP_SYST 149
--- NOTE | 2016-12-14 12:30 | NUR ---
MD ROUNDING: SEEN BY DR. SMITH, ORDER CARRIED OUT.
--- NOTE | 2016-12-14 14:30 | NUR ---
ROUNDING: PT WAS RESTING, CONTINUE TO MONITOR.
[2016-12-14 16:11] VITALS: BP_SYST 155
[2016-12-14] MEDS: ALBUTEROL SULFATE 0.083% 2.5 MG/3 ML VIAL.NEB INH PRN (16:36)
[2016-12-14] MEDS: LORazepam 1 MG TABLET PO PRN (16:38)
--- NOTE | 2016-12-14 19:10 | NUR ---
CLOSING NOTE: PT FEELS BETTER THAT LAST NIGHT, ENDORSED TO PROGRAM MANAGER ENVIRONMENTAL PLANNING NURSE FOR CONTINUE CARE.
--- NOTE | 2016-12-14 19:20 | NUR ---
INITIAL NOTE PT. RECEIVED RESTING IN BED, ALERT AND ORIENTED. VSS. SATING WELL ON 2L NASAL CANNULA. RT AT THE BEDSIDE TO GIVE A BREATHING TREATMENT. PT. DENIES PAIN AT THIS TIME. REQUESTING ATIVAN, BUT NOT YET DUE FOR PRN DOSE. PT. VERBALIZES UNDERSTANDING. ENCOURAGED RELAXATION TECHNIQUES. IV ACCESS NOTED TO RIGHT HAND, SALINE LOCK. NO REDNESS OR SWELLING TO THE SITE. PT. STATES HE IS ABLE TO AMBULATE WITH STEADY GAIT, ENCOURAGED CALL FOR ASSISTANCE. VERBALIZES UNDERSTANDING. PLAN OF CARE DISCUSSED. WILL CONT. TO MONITOR FOR ANY CHANGES. SAFETY AND FALL PRECAUTIONS IN PLACE, CALL LIGHT IN REACH, BED IN LOWEST LOCKED POSITION.
[2016-12-14 20:00] VITALS: BP_SYST 154
--- NOTE | 2016-12-14 22:21 | NUR ---
ROUNDS PT RESTING IN BED WITH EYES CLOSED. CHEST RISE AND FALL NOTED. NO S/S OF SOB OR DISTRESS. BIPAP IN PLACE. SATING AT 98% ON THE MONITOR. WILL CONT. TO MONITOR FOR CHANGES. SAFETY AND FALL PRECAUTIONS IN PLACE, CALL LIGHT IN REACH. BED IN LOWEST LOCKED POSITION.
[2016-12-15] VITALS (7 sets, daily range): BP systolic 129–158
--- NOTE | 2016-12-15 00:20 | NUR ---
ROUNDS PT. KEEPS REMOVING THE BIPAP MACHINE. HAVE HAD TO REPLACE IT 4 TIMES, AND EDUCATE THE PT. ON THE IMPORTANCE OF KEEPING IT IN PLACE HE DESATS IN THE HIGH 80S WHEN HE REMOVES IT. PT. REPLIES WITH HE IS NOT REMOVING IT, BUT I CONTINUE TO FIND HIM WITHOUT IT ON. AT THIS TIME IT IS IN PLACE, AND PT. IS SATING AT 97%. WILL CONT. TO CLOSELY MONITOR THE PT. TO ENSURE THE BIPAP STAYS IN PLACE TO MAINTAIN OPTIMAL SATURATION. CALL LIGHT IN REACH. BED ALARM ON.
[2016-12-15] MEDS: ALBUTEROL SULFATE 0.083% 2.5 MG/3 ML VIAL.NEB INH SCH ×3 (00:58→19:53)
[2016-12-15] MEDS: IPRATROPIUM BROM 0.5 MG/2.5 ML VIAL.NEB (ATROVENT) INH SCH ×3 (00:58→19:53)
--- NOTE | 2016-12-15 02:36 | NUR ---
ROUNDS PT. RESTING IN BED WITH EYES CLOSED. CHEST RISE AND FALL NOTED. BIPAP IN PLACE. SATING AT 97%. NO S/S OF ACUTE DISTRESS NOTED. WILL CONT. TO MONITOR FOR CHANGES. SAFETY AND FALL PRECAUTIONS IN PLACE, CALL LIGHT IN REACH.
--- NOTE | 2016-12-15 04:31 | NUR ---
ROUNDS PT. RESTING IN BED. BIPAP IN PLACE, PT. SATING WELL. PT. DENIES PAIN. WILL CONT. TO MONITOR FOR CHANGES. SAFETY AND FALL PRECAUTIONS IN PLACE, CALL LIGHT IN REACH.
--- NOTE | 2016-12-15 06:20 | NUR ---
CLOSING NOTE PT. SITTING UP IN BED WATCHING TELEVISION. SATING AT 93% ON 2L NC, REQUESTED TO HAVE BIPAP BACK ON. RT WAS CALLED AND CAME TO PUT BIPAP BACK ON PT. IV ACCESS REMAINS PATENT. ALL NECESSARY NEEDS WERE MET THROUGHOUT THE SHIFT. SAFETY AND FALL PRECAUTIONS WERE MAINTAINED. WILL ENDORSE CARE TO AM NURSE. CALL LIGHT IN REACH.
--- NOTE | 2016-12-15 08:00 | NUR ---
AM SHIFT NOTE: RECEIVED PT A/O X4, C/O SHORT OF BREATHING, O2/NC /2L, IV AT RIGHT HAND, REGULAR DIET, SKIN INTACT, VOIDING, AMBULATED WELL, CALL LIGHT WITHIN REACH.
[2016-12-15] MEDS: BUDESONIDE 0.5 MG/2 ML AMPUL.NEB INH SCH ×2 (08:08→19:53)
[2016-12-15] MEDS: THEOPHYLLINE ANHYDROUS 300 MG TAB.SR.12H PO SCH (08:41)
[2016-12-15] MEDS: ENOXAPARIN SODIUM 30 MG/0.3 ML SYRINGE SUBCUT SCH (08:42)
[2016-12-15] MEDS: cefTRIAXone 1 GM IVPB PREMIX 50 ML IV SCH (08:42)
[2016-12-15] MEDS: methylPREDNISolone SOD SUCC/PF 62.5 MG/ML VIAL IVP SCH ×2 (08:42→21:19)
--- NOTE | 2016-12-15 09:30 | NUR ---
MEDS: ROUTINE MEDS GIVEN, PT TOLERATED WELL.
--- NOTE | 2016-12-15 12:45 | NUR ---
ROUNDING: PT HAD LUNCH WELL.NO C/O DISTRESS AT THIS TIME.
--- NOTE | 2016-12-15 16:36 | NUR ---
DC planning: Per Dr. Case he doesn't think pt will need SNF--most likely home health. I called Reynaldo at [facility] at [phone]-He said if pt discharges over the weekend, use: [facility] at #[phone] For DME (may need bipap): [facility]-on cover sheet tell them to include CPT codes for Reynaldo and ph#[phone] On cover sheet tell them to include CPT codes for Reynaldo and he will provide authorization for the DME from [facility] and for with [facility]--His weekend# is [phone]--The HH and DME company can get authorization from him --MATEO PEREZ
--- NOTE | 2016-12-15 17:01 | NUR ---
P.T. NOTES P.T. EVAL DONE; D/C FROM P.T. AFTER TX, NURSING TO AMBULATE PATIENT AD FINN.
--- NOTE | 2016-12-15 19:15 | NUR ---
CLOSING NOTE: PT FELT THAT HE HAS IMPROVED A LOT TODAY, POSSIBLE D/C IN AM. ENDORSED TO INSPECTOR MISSILE NURSE, JANELL FOR CONTINUE CARE.
--- NOTE | 2016-12-15 19:30 | NUR ---
notes received the pt from the day nurse.pt a/a/ox4 watching tv with no complaints.iv intact to rt hand,no redness or swelling noted.o2 via nc in place at 2l/min.call light within reach,safety measures in progress.will continue to monitor.
--- NOTE | 2016-12-15 21:29 | NUR ---
notes pt with no complaints.pulse ox box keeps shutting off.new batteries applied.
[2016-12-15] MEDS: ALBUTEROL SULFATE 0.083% 2.5 MG/3 ML VIAL.NEB INH PRN (22:22)
--- NOTE | 2016-12-15 23:33 | NUR ---
notes pt resting,no c/o sob.call light within reach.continue to monitor.
[2016-12-16] MEDS: IPRATROPIUM BROM 0.5 MG/2.5 ML VIAL.NEB (ATROVENT) INH SCH ×2 (00:51→07:22)
[2016-12-16] MEDS: ALBUTEROL SULFATE 0.083% 2.5 MG/3 ML VIAL.NEB INH SCH ×2 (00:52→07:22)
--- NOTE | 2016-12-16 01:18 | NUR ---
notes med.neb.treatment given by respiratory therapist.
--- NOTE | 2016-12-16 03:35 | NUR ---
notes pt sleeping,call light within reach.continue to monitor.
[2016-12-16 04:32] VITALS: BP_SYST 134
--- NOTE | 2016-12-16 05:29 | NUR ---
notes awake asking for crackers and juice.no c/o sob.continue to monitor
--- NOTE | 2016-12-16 06:10 | NUR ---
closing notes pt sleeping,no dyspnea noted.will endorse the care of the pt to the day nurse.
--- NOTE | 2016-12-16 07:20 | NUR ---
AM ROUNDS: PATIENT AWAKE DURING ROUNDS.REPORT GIVEN BY NIGHT NURSE JANELL. PATIENT CONNECTED TO PULSE OXIMETER.NO DISTRESS. LEFT WRIST IV SALINE LOCK. BED AT LOWEST POSITION. CALL LIGHT WITH IN REACH.
[2016-12-16] MEDS: BUDESONIDE 0.5 MG/2 ML AMPUL.NEB INH SCH (07:22)
[2016-12-16 08:14] VITALS: BP_SYST 139
[2016-12-16] MEDS: ENOXAPARIN SODIUM 30 MG/0.3 ML SYRINGE SUBCUT SCH (08:21)
[2016-12-16] MEDS: methylPREDNISolone SOD SUCC/PF 62.5 MG/ML VIAL IVP SCH (08:22)
[2016-12-16] MEDS: THEOPHYLLINE ANHYDROUS 300 MG TAB.SR.12H PO SCH (08:22)
--- NOTE | 2016-12-16 08:33 | NUR ---
MEDS: SITTING ON THE BED. TOOK HIS MORNING MEDS WELL. INFORMED PATIENT WITH DC ORDER,WILL CALL [facility] IF OK TO BE DC PER MD.PATIENT NEEDS RIDE HOME,MULUGETA F/U WITH NURSINGI DICTATING MACHINE TRANSCRIBER.
--- NOTE | 2016-12-16 08:46 | NUR ---
AMBULATION Pt has discharge orders to go home. Discontinued O2 and ambulated patient in the hallway. Patient ambulated 300 feet on room air. No shortness of breath. O2 sat post ambulation 95% on room air
--- NOTE | 2016-12-16 10:18 | NUR ---
YAMILKA PAGED: CALLED EXCHANGE DR CASTRO/DR GAMBINO COMPLAINT OPERATOR ,AWAITS FOR HIS RESPONSE.
--- NOTE | 2016-12-16 10:39 | NUR ---
ROOM AIR: ROOM AIR O2 SATURATION=95%. NO DISTRESS.
[2016-12-16] MEDS ORDERED: METH4TAB3 PO (11:00)
[2016-12-16] MEDS ORDERED: [UNRECOGNIZED DRUG - CODE] PO (11:00)
[2016-12-16] MEDS ORDERED: LEVO500T20 PO (11:01)
[2016-12-16] MEDS ORDERED: ATRMDI INH (11:04)
[2016-12-16] MEDS ORDERED: ALBMDI INH (11:05)
[2016-12-16 11:11] VITALS: BP_SYST 145
--- NOTE | 2016-12-16 12:50 | NUR ---
DC NOTES: TRANSITIONAL CARE DOCUMENTS AND PRESCRIPTIONS GIVEN TO PATIENT.PATIENT VERBALIZED UNDERSTANDING OF THE DC INSTRUCTIONS. PERSONAL BELONGINGS CHECKED AND SENT HOME WITH THE PATIENT. IV REMOVED,DRY GAUZE APPLIED,CLEAN AND DRY.NO BLEEDING NOTED ON THE SITE. NO RIDE HOME. PATIENT REQUESTED TAXI VOUCHER WAS GIVEN BY THE EVENT SECURITY OFFICER. FIBRE COMPOSITE TECHNICIAN WHEELED PATIENT TO THE LOBBY WITH COPY OF TAXI VOUCHER GIVEN TO THE LECTURER IN COMPUTER SCIENCE AND THE REST TO THE EVENT SECURITY OFFICER.PATIENT HOME IN STABLE CONDITION.
== END 2016-12-16 12:50 | disposition home or self-care (01) | DRG 871 ==
LOC: SED 10:09 → SMU 14:16 → STU 14:20 → SMU 14:35 → STU 15:35 → SMU 12-11 19:59
PROVIDERS: ATTEND Internal Medicine Hospice and Palliative Medicine
PROC: 5A09557 Assistance with Respiratory Ventilation, Greater than 96 Consecutive Hours, Continuous Positive Airway Pressure (ICD-10-PCS; principal; 2016-12-08)
DX: A41.9 Sepsis, unspecified organism (principal); J96.00 Acute respiratory failure, unspecified whether with hypoxia or hypercapnia; J44.1 Chronic obstructive pulmonary disease with (acute) exacerbation; I10 Essential (primary) hypertension; Z87.891 Personal history of nicotine dependence
CPT/HCPCS: 36415; 36600; 71010; 80053; 82785; 82803-TC; 83605; 83880; 85025; 87040-TC; 87070-TC; 87205-TC; 93005; 94640; 94660; 94760; 96365; 96372; 96375; 99291; J0456; J0696; J1650; J1940; J1956; J2405; J2930; J7030; J7050; J7060

== ENCOUNTER 2017-03-07 18:43 | Inpatient (IN) | payer OTHER, MEDICAID ==
[~2017-03-07] VITALS: Ht 165.1 cm; Wt 74.8 kg
[2017-03-07 18:43] VITALS: BP_SYST 177
[~2017-03-07 18:43] MED LIST changes: +ATRMDI INH; -CEPH-568 PO; -LACT1CAP57 PO; +LEVO500T20 PO; +METH4TAB3 PO; -MOME13HF2 INH; +[UNRECOGNIZED DRUG - CODE] PO
[2017-03-07] MEDS ORDERED: ALBUTEROL SULFATE 0.083% 2.5 MG/3 ML VIAL.NEB INH ONE ×2 (18:48→19:00)
[2017-03-07] MEDS ORDERED: MAGNESIUM SULFATE 50 ML IV ONE (19:00)
[2017-03-07] MEDS ORDERED: IPRATROPIUM BROM 0.5 MG/2.5 ML VIAL.NEB (ATROVENT) INH ONE (19:00)
[2017-03-07] MEDS ORDERED: methylPREDNISolone SOD SUCC/PF 62.5 MG/ML VIAL IVP ONE (19:00)
[2017-03-07 19:34] LABS: BASOPHILS # (AUTO) 0.1 K/uL (0.0-0.2); BASOPHILS % (AUTO) 0.4 % (0.0-2.0); EOSINOPHILS # (AUTO) 0.1 K/uL (0.0-0.4); EOSINOPHILS % (AUTO) 0.9 % (0.0-4.0); HEMATOCRIT 43.1 % (36-54); HEMOGLOBIN 14.4 g/dL (14.0-18.0); LYMPHOCYTES # (AUTO) 2.3 K/uL (1.0-5.5); MEAN CORPUSCULAR HEMOGLOBIN 30 pg (27-31); MEAN CORPUSCULAR HGB CONC 34 % (32-36); MEAN CORPUSCULAR VOLUME 89 fL (79.0-98.0); MONOCYTES # (AUTO) 0.7 K/uL (0.0-1.0); MONOCYTES % (AUTO) 4.9 % (1.7-9.3); NEUTROPHILS # (AUTO) 11.4 K/uL (1.8-7.7); NEUTROPHILS % (AUTO) 77.8 % (40.0-70.0); PLATELET COUNT (AUTO) 280 K/uL (130-430); RED BLOOD CELL COUNT(AUTO) 4.86 MIL/uL (4.2-6.2); RED CELL DISTRIBUTION WIDTH 13.2 % (9.0-15.0); WHITE BLOOD COUNT (AUTO) 14.6 K/uL (4.8-10.8)
[2017-03-07] MEDS ORDERED: IPRATROPIUM/ALBUTEROL SULFATE 3 ML AMPUL.NEB INH ONE (20:15)
[2017-03-07 20:33] LABS: ANION GAP 8 (5-15); CHLORIDE 103 mmol/L (98-107); CREATININE 1.08 mg/dL (0.55-1.30); GLUCOSE 159 mg/dL (70-99); POTASSIUM 3.7 mmol/L (3.5-5.1); SODIUM SERUM 141 mmol/L (136-145); UREA NITROGEN, BLOOD 18 mg/dL (8-21)
[2017-03-07 20:36] LABS: BILIRUBIN,URINE NEGATIVE (NEGATIVE); CLARITY/URINE CLEAR (CLEAR); COLOR,URINE YELLOW (YELLOW); GLUCOSE,URINE 2+ (NEGATIVE); KETONES,URINE NEGATIVE (NEGATIVE); LEUKOCYTE ESTERASE ,URINE NEGATIVE (NEGATIVE); NITRITE, URINE NEGATIVE (NEGATIVE); PROTEIN URINE NEGATIVE (NEGATIVE); UROBILINOGEN,URINE 0.2 (0.2-1.0)
[2017-03-07 20:38] LABS: BLOOD, URINE TRACE (NEGATIVE)
[2017-03-07 20:39] LABS: BACTERIA,URINE RARE /HPF (None Seen); RBC,URINE 0-3 /HPF (0-3); WBC,URINE 0-3 /HPF (0-3)
[2017-03-07 20:40] LABS: MUCUS,URINE None Seen /LPF (None Seen)
[2017-03-07 20:42] LABS: GFR AFRICAN AMERICAN 88 mL/min (>90)
[2017-03-07 20:44] LABS: ALANINE AMINOTRANSFERASE 72 U/L (12-78); ALBUMIN 4.1 g/dL (3.4-4.8); ASPARTATE AMINOTRANSFERASE 56 U/L (10-37); TOTAL BILIRUBIN 0.4 mg/dL (0.0-1.0)
[2017-03-07 20:51] LABS: CALCIUM 9.4 mg/dL (8.4-11.0)
[2017-03-07] MEDS ORDERED: GLIP5TAB13 PO (22:03)
[2017-03-07] MEDS ORDERED: PRED5TAB PO (22:04)
[2017-03-07] MEDS ORDERED: HYDR-1189 PO (22:04)
[2017-03-07] MEDS ORDERED: ASPI-1063 PO (22:05)
[2017-03-07] MEDS ORDERED: ATOR40TA68 PO (22:05)
[2017-03-07] MEDS ORDERED: HYDR-4037 PO (22:07)
[2017-03-07 22:45] VITALS: BP_SYST 157
[2017-03-07] MEDS ORDERED: HYDROcodone/ACETAMIN 5-325 MG TAB (NORCO/ VICODIN) PO PRN (23:15)
[2017-03-07] MEDS ORDERED: hydrALAZINE HCL 10 MG TABLET PO PRN (23:15)
[2017-03-07] MEDS ORDERED: ACETAMINOPHEN 325 MG TABLET PO PRN (23:30)
[2017-03-08] VITALS (7 sets, daily range): BP systolic 149–164
[2017-03-08] MEDS: IPRATROPIUM/ALBUTEROL SULFATE 3 ML AMPUL.NEB INH SCH ×5 (02:18→19:14)
[2017-03-08] MEDS: methylPREDNISolone SOD SUCC 40 MG/ML VIAL IVP SCH ×3 (05:58→21:27)
[2017-03-08] MEDS: INSULIN ASPART 100 UNITS/ML, 10 ML VIAL (NovoLOG) SUBCUT PRN ×3 (06:54→21:41)
[2017-03-08 07:38] LABS: BASOPHILS % (AUTO) 0.3 % (0.0-2.0); HEMATOCRIT 40.7 % (36-54); HEMOGLOBIN 13.7 g/dL (14.0-18.0); LYMPHOCYTES # (AUTO) 0.6 K/uL (1.0-5.5); LYMPHOCYTES % (AUTO) 4.3 % (20.5-51.5); MEAN CORPUSCULAR HEMOGLOBIN 30 pg (27-31); MEAN CORPUSCULAR HGB CONC 34 % (32-36); MEAN CORPUSCULAR VOLUME 89 fL (79.0-98.0); MONOCYTES # (AUTO) 0.2 K/uL (0.0-1.0); MONOCYTES % (AUTO) 1.3 % (1.7-9.3); NEUTROPHILS % (AUTO) 94.1 % (40.0-70.0); PLATELET COUNT (AUTO) 237 K/uL (130-430); RED BLOOD CELL COUNT(AUTO) 4.57 MIL/uL (4.2-6.2); RED CELL DISTRIBUTION WIDTH 13.4 % (9.0-15.0); WHITE BLOOD COUNT (AUTO) 14.8 K/uL (4.8-10.8)
[2017-03-08] MEDS: ATORVASTATIN 20 MG TABLET PO SCH (08:25)
[2017-03-08] MEDS: FAMOTIDINE 20 MG TABLET PO SCH (08:26)
[2017-03-08] MEDS: ASPIRIN 81 MG TABLET(ECOTRIN) PO SCH (08:26)
[2017-03-08 08:33] LABS: ALBUMIN 3.7 g/dL (3.4-4.8); CALCIUM 8.4 mg/dL (8.4-11.0); CREATININE 1.07 mg/dL (0.55-1.30); POTASSIUM 4.5 mmol/L (3.5-5.1); TOTAL BILIRUBIN 0.4 mg/dL (0.0-1.0)
[2017-03-08] MEDS: guaiFENesin ER 600 MG TAB PO SCH (21:27)
[2017-03-09 00:42] VITALS: BP_SYST 144
[2017-03-09] MEDS: IPRATROPIUM/ALBUTEROL SULFATE 3 ML AMPUL.NEB INH SCH ×4 (03:32→20:28)
[2017-03-09 05:03] VITALS: BP_SYST 151
[2017-03-09] MEDS: methylPREDNISolone SOD SUCC 40 MG/ML VIAL IVP SCH ×3 (06:56→21:24)
[2017-03-09] MEDS: INSULIN ASPART 100 UNITS/ML, 10 ML VIAL (NovoLOG) SUBCUT PRN ×3 (07:01→17:10)
[2017-03-09 07:50] VITALS: BP_SYST 148
[2017-03-09] MEDS: guaiFENesin ER 600 MG TAB PO SCH ×2 (09:18→21:16)
[2017-03-09] MEDS: FAMOTIDINE 20 MG TABLET PO SCH (09:18)
[2017-03-09] MEDS: ATORVASTATIN 20 MG TABLET PO SCH (09:18)
[2017-03-09] MEDS: ASPIRIN 81 MG TABLET(ECOTRIN) PO SCH (09:18)
[2017-03-09 11:33] VITALS: BP_SYST 152
[2017-03-09 15:33] VITALS: BP_SYST 148
[2017-03-09 20:00] VITALS: BP_SYST 143
[2017-03-10 00:02] VITALS: BP_SYST 135
[2017-03-10] MEDS: IPRATROPIUM/ALBUTEROL SULFATE 3 ML AMPUL.NEB INH SCH ×5 (02:13→20:44)
[2017-03-10 04:39] VITALS: BP_SYST 137
[2017-03-10] MEDS: methylPREDNISolone SOD SUCC 40 MG/ML VIAL IVP SCH ×3 (06:21→21:37)
[2017-03-10] MEDS: INSULIN ASPART 100 UNITS/ML, 10 ML VIAL (NovoLOG) SUBCUT PRN ×3 (06:28→20:38)
[2017-03-10 08:00] VITALS: BP_SYST 145
[2017-03-10] MEDS: guaiFENesin ER 600 MG TAB PO SCH ×2 (08:38→20:32)
[2017-03-10] MEDS: FAMOTIDINE 20 MG TABLET PO SCH ×2 (08:38→20:31)
[2017-03-10] MEDS: ASPIRIN 81 MG TABLET(ECOTRIN) PO SCH (08:38)
[2017-03-10] MEDS: ATORVASTATIN 20 MG TABLET PO SCH (08:38)
[2017-03-10 11:30] VITALS: BP_SYST 143
[2017-03-10 15:34] VITALS: BP_SYST 144
[2017-03-10] MEDS ORDERED: cefTRIAXone 1 GM IVPB PREMIX 50 ML IV ONE (17:57)
[2017-03-10] MEDS ORDERED: MONTELUKAST 10 MG TABLET PO SCH (18:00)
[2017-03-10] MEDS ORDERED: cefTRIAXone 1 GM in D5W 50 ML IV SCH (18:00)
[2017-03-10] MEDS: AZITHROMYCIN 250 MG TABLET PO SCH (18:09)
[2017-03-10 19:52] VITALS: BP_SYST 152
[2017-03-10] MEDS: GABAPENTIN 100 MG CAPSULE PO SCH (20:31)
[2017-03-11 00:11] VITALS: BP_SYST 140
[2017-03-11] MEDS: IPRATROPIUM/ALBUTEROL SULFATE 3 ML AMPUL.NEB INH SCH ×5 (01:54→13:39)
[2017-03-11 04:53] VITALS: BP_SYST 139
[2017-03-11] MEDS: methylPREDNISolone SOD SUCC 40 MG/ML VIAL IVP SCH (05:42)
[2017-03-11] MEDS: INSULIN ASPART 100 UNITS/ML, 10 ML VIAL (NovoLOG) SUBCUT PRN (06:14)
[2017-03-11 08:00] VITALS: BP_SYST 155
[2017-03-11 09:02] VITALS: BP_SYST 155
[2017-03-11] MEDS: GABAPENTIN 100 MG CAPSULE PO SCH (09:09)
[2017-03-11] MEDS: FAMOTIDINE 20 MG TABLET PO SCH (09:09)
[2017-03-11] MEDS: guaiFENesin ER 600 MG TAB PO SCH (09:09)
[2017-03-11] MEDS: ASPIRIN 81 MG TABLET(ECOTRIN) PO SCH (09:09)
[2017-03-11] MEDS: ATORVASTATIN 20 MG TABLET PO SCH (09:09)
[2017-03-11 11:28] VITALS: BP_SYST 140
[2017-03-11] MEDS: AZITHROMYCIN 250 MG TABLET PO SCH (12:08)
[2017-03-11 13:34] VITALS: BP_SYST 140
== END 2017-03-11 13:50 | disposition home or self-care (01) | DRG 192 ==
LOC: SED 18:43 → STU 22:26 → SMU 03-08 14:00
PROVIDERS: ADMIT Internal Medicine; ATTEND Internal Medicine
DX: J44.1 Chronic obstructive pulmonary disease with (acute) exacerbation (principal); E11.42 Type 2 diabetes mellitus with diabetic polyneuropathy; I10 Essential (primary) hypertension; Z79.82 Long term (current) use of aspirin; Z79.1 Long term (current) use of non-steroidal anti-inflammatories (NSAID); Z79.51 Long term (current) use of inhaled steroids; Z79.899 Other long term (current) drug therapy
CPT/HCPCS: 36415; 36600; 71010; 80053; 81000-TC; 82803-TC; 82962; 83880; 84484; 85025; 87040-TC; 93005; 94640; 94760; 96365; 96375; 99285; J0696; J1030; J1815; J2930; J3475; J7040; J7060; Q0144

== ENCOUNTER 2018-01-14 03:26 | Emergency (ER) | payer OTHER, MEDICAID ==
[~2018-01-14] VITALS: Ht 165.1 cm; Wt 70.3 kg
[2018-01-14 03:26] VITALS: BP_SYST 165
[~2018-01-14 03:26] MED LIST changes: +ASPI-1153 PO; +ATOR40TA68 PO; +DOXY100T2 PO; +GLIP5TAB13 PO; +GLU500 PO; +HYDR-1189 PO; -LEVO500T20 PO; -METH4TAB3 PO; +PRED20TA PO; -[UNRECOGNIZED DRUG - CODE] PO
[2018-01-14] MEDS ORDERED: IPRATROPIUM/ALBUTEROL SULFATE 3 ML AMPUL.NEB INH ONE (03:30)
[2018-01-14] MEDS ORDERED: DEXAMETHASONE SOD PHOSPHATE 10 MG/ML VIAL IVP ONE (03:30)
[2018-01-14] MEDS ORDERED: IPRATROPIUM/ALBUTEROL SULFATE 3 ML AMPUL.NEB ONE (03:35)
[2018-01-14 04:03] LABS: BASOPHILS # (AUTO) 0.1 K/uL (0.0-0.2); BASOPHILS % (AUTO) 1.1 % (0.0-2.0); EOSINOPHILS # (AUTO) 0.9 K/uL (0.0-0.4); EOSINOPHILS % (AUTO) 6.8 % (0.0-4.0); HEMATOCRIT 39.4 % (36-54); HEMOGLOBIN 12.6 g/dL (14.0-18.0); LYMPHOCYTES # (AUTO) 1.7 K/uL (1.0-5.5); LYMPHOCYTES % (AUTO) 13.2 % (20.5-51.5); MEAN CORPUSCULAR HEMOGLOBIN 28 pg (27-31); MEAN CORPUSCULAR HGB CONC 32 % (32-36); MEAN CORPUSCULAR VOLUME 89 fL (79.0-98.0); MONOCYTES # (AUTO) 0.7 K/uL (0.0-1.0); MONOCYTES % (AUTO) 5.7 % (1.7-9.3); NEUTROPHILS # (AUTO) 9.3 K/uL (1.8-7.7); NEUTROPHILS % (AUTO) 73.2 % (40.0-70.0); PLATELET COUNT (AUTO) 253 K/uL (130-430); RED BLOOD CELL COUNT(AUTO) 4.43 MIL/uL (4.2-6.2); RED CELL DISTRIBUTION WIDTH 12.4 % (9.0-15.0); WHITE BLOOD COUNT (AUTO) 12.7 K/uL (4.8-10.8)
[2018-01-14 04:14] LABS: CALCIUM 8.9 mg/dL (8.4-11.0); CREATININE 0.8 mg/dL (0.55-1.30); POTASSIUM 3.2 mmol/L (3.5-5.1)
[2018-01-14 04:19] LABS: INR 0.9 (0.80-1.20); PROTHROMBIN TIME 8.8 SECS (9.5-12.5)
[2018-01-14 04:20] LABS: ALBUMIN 3.7 g/dL (3.4-4.8); TOTAL BILIRUBIN 0.8 mg/dL (0.0-1.0)
[2018-01-14] MEDS ORDERED: POTASSIUM CHLORIDE 20 MEQ/PKT PACKET PO ONE (04:30)
[2018-01-14] MEDS ORDERED: IPRA3AMP9 INH (04:33)
[2018-01-14 06:02] VITALS: BP_SYST 151
== END 2018-01-14 06:02 | disposition home or self-care (01) ==
LOC: SED 03:26
DX: J44.1 Chronic obstructive pulmonary disease with (acute) exacerbation (principal); E11.9 Type 2 diabetes mellitus without complications; I10 Essential (primary) hypertension; Z79.899 Other long term (current) drug therapy
CPT/HCPCS: 36415; 36600; 71045; 80053; 82803; 83880; 84484; 85025; 85610; 85730; 93005; 94640; 96374; 99285; J1100; J7620